=== PATIENT | male | born 1945 | race Caucasian/White ===

== ENCOUNTER 2022-10-14 21:54 | Inpatient (IN) | payer MEDICARE, SELFPAY ==
[2022-10-14 21:57] VITALS: BP 142/107; PULSE 115; RESP 30; TEMP 37.3; O2SAT 93; BMI 43.0
--- NOTE | 2022-10-14 22:11 | CTR_ITS ---
PROCEDURE INFORMATION: Exam: CTA Head With Contrast, Arteriography Exam date and time: 10/14/2022 10:42 PM Age: 77 years old Clinical indication: Stroke-like symptoms; Altered mental status/memory loss; Additional info: Arrival via EMS for acute AMS. Patient acting very confused and fearful. Keeps repeating oh god help me . Persistently keeps holding RT upper ext up in the air. TECHNIQUE: Imaging protocol: Computed tomographic angiography of the head with contrast. Exam focused on the arteries. 3D rendering (Not supervised by radiologist): MIP and/or 3D reconstructed images were created by the technologist. Radiation optimization: All CT scans at this facility use at least one of these dose optimization techniques: automated exposure control; mA and/or kV adjustment per patient size (includes targeted exams where dose is matched to clinical indication); or iterative reconstruction. Contrast material: OMNI 350; Contrast volume: 200 ml; Contrast route: INTRAVENOUS (IV); REPORTING DATA: Count of CT and Cardiac NM exams in prior 12 months: This patient has received [address] and 0 known cardiac nuclear medicine studies in the 12 months prior to the current study. COMPARISON: CT head wo con* [id number] 10/14/2022 10:40 PM RADIATION DOSE METRICS: Total DLP (mGy-cm): 710.08 FINDINGS: ANTERIOR CIRCULATION: Right internal carotid artery: Intracranial segment is patent with no significant stenosis. No aneurysm. Right middle cerebral artery: No occlusion or significant stenosis. No aneurysm. Right anterior cerebral artery: No occlusion or significant stenosis. No aneurysm. Left internal carotid artery: Intracranial segment is patent with no significant stenosis. No aneurysm. Left middle cerebral artery: No occlusion or significant stenosis. No aneurysm. Left anterior cerebral artery: No occlusion or significant stenosis. No aneurysm. POSTERIOR CIRCULATION: Right vertebral artery: No occlusion or significant stenosis. No aneurysm. Left vertebral artery: No occlusion or significant stenosis. No aneurysm. Basilar artery: No occlusion or significant stenosis. No aneurysm. Right posterior cerebral artery: No occlusion or significant stenosis. No aneurysm. Left posterior cerebral artery: No occlusion or significant stenosis. No aneurysm. Brain: Encephalomalacia in the right occipital lobe. Cerebral ventricles: No ventriculomegaly. Bones/joints: Unremarkable. No acute fracture. Soft tissues: Unremarkable. PROCEDURE INFORMATION: Exam: CTA Neck With Contrast Exam date and time: 10/14/2022 10:42 PM Age: 77 years old Clinical indication: Stroke-like symptoms; Altered mental status/memory loss; Additional info: Arrival via EMS for acute AMS. Patient acting very confused and fearful. Keeps repeating oh god help me . Persistently keeps holding RT upper ext up in the air. TECHNIQUE: Imaging protocol: Computed tomographic angiography of the neck with contrast. 3D rendering (Not supervised by radiologist): MIP and/or 3D reconstructed images were created by the technologist. Radiation optimization: All CT scans at this facility use at least one of these dose optimization techniques: automated exposure control; mA and/or kV adjustment per patient size (includes targeted exams where dose is matched to clinical indication); or iterative reconstruction. Contrast material: OMNI 350; Contrast volume: 200 ml; Contrast route: INTRAVENOUS (IV); REPORTING DATA: Count of CT and Cardiac NM exams in prior 12 months: This patient has received [address] and 0 known cardiac nuclear medicine studies in the 12 months prior to the current study. COMPARISON: CT cervical spin wo con* [id number] 07/26/2018 7:27 PM RADIATION DOSE METRICS: Total DLP (mGy-cm): 659.57 FINDINGS: Right common carotid artery: No stenosis. No dissection or occlusion. Right internal carotid artery: Unable to assess due to motion artifact. Right external carotid artery: No occlusion or stenosis of the origin. Left common carotid artery: No stenosis. No dissection or occlusion. Left internal carotid artery: Unable to assess due to motion artifact. Left external carotid artery: No occlusion or stenosis of the origin. Right vertebral artery: No stenosis. No dissection or occlusion. Left vertebral artery: No stenosis. No dissection or occlusion. Soft tissues: Normal. No significant soft tissue swelling. Bones/joints: No acute fracture. Other findings: Motion artifact degrades the images. CT/CT angio headneck* [id number] IMPRESSION: No stenosis or occlusion of intracranial arteries. IMPRESSION: Limited examination due to extensive motion artifact. Evaluation of bilateral proximal internal carotid arteries is limited to assess for stenosis. REFERENCES: NASCET CRITERIA. The degree of stenosis in the cervical segment of the internal carotid artery is based on NASCET criteria. Normal is no stenosis. Mild is less than 50% stenosis. Moderate is 50-69% stenosis. Severe is 70% to 99% stenosis. Total occlusion is no detectable patent lumen.
--- NOTE | 2022-10-14 22:11 | CTR_ITS ---
PROCEDURE INFORMATION: Exam: CT Head Without Contrast Exam date and time: 10/14/2022 10:40 PM Age: 77 years old Clinical indication: Stroke-like symptoms; Altered mental status/memory loss; Additional info: Arrival via EMS for acute AMS. Patient acting very confused and fearful. Keeps repeating oh god help me . Persistently keeps holding RT upper ext up in the air. TECHNIQUE: Imaging protocol: Computed tomography of the head without contrast. Radiation optimization: All CT scans at this facility use at least one of these dose optimization techniques: automated exposure control; mA and/or kV adjustment per patient size (includes targeted exams where dose is matched to clinical indication); or iterative reconstruction. Other technique: STROKE PROTOCOL was implemented. REPORTING DATA: Count of CT and Cardiac NM exams in prior 12 months: This patient has received [address] and 0 known cardiac nuclear medicine studies in the 12 months prior to the current study. COMPARISON: CT head wo con* [id number] 07/26/2018 7:24 PM RADIATION DOSE METRICS: Total DLP (mGy-cm): 710.08 FINDINGS: Brain: Large amount of diffuse white matter disease likely reflecting chronic microvascular ischemic changes. Cerebral ventricles: No ventriculomegaly. Paranasal sinuses: Paranasal sinus opacifications. Mastoid air cells: Visualized mastoid air cells are well aerated. Bones/joints: Unremarkable. No acute fracture. Soft tissues: Unremarkable. Vasculature: Chronic right posterior cerebral artery distribution encephalomalacia/infarct. CT/CT head wo con* [id number] IMPRESSION: 1. Negative for intracranial hemorrhage or mass effect. 2. Chronic right posterior cerebral artery distribution encephalomalacia/infarct. 3. Large amount of diffuse white matter disease likely reflecting chronic microvascular ischemic changes. 4. Paranasal sinus opacifications. ASSESSMENT: ASPECTS ([place] Stroke Program Early CT Score) is 10.
--- NOTE | 2022-10-14 22:11 | XRR_ITS ---
PROCEDURE INFORMATION: Exam: XR Chest Exam date and time: 10/14/2022 10:22 PM Age: 77 years old Clinical indication: Shortness of breath; Additional info: SOB TECHNIQUE: Imaging protocol: Radiologic exam of the chest. Views: 1 view. COMPARISON: CR XR chest 1V [id number] 06/17/2018 12:57 AM FINDINGS: Lungs: Unremarkable. No consolidation. Pleural spaces: Unremarkable. No pleural effusion. No pneumothorax. Heart/Mediastinum: Unremarkable. No cardiomegaly. Bones/joints: Unremarkable. XR/XR chest 1V portable [id number] IMPRESSION: No acute findings.
[2022-10-14] MEDS: ondansetron 2 mg/ML SDV 2 mL 4 MG IVP (22:15)
--- NOTE | 2022-10-14 22:21 | ECG_ITS ---
[facility] Test Date: 2022-10-14 Pat Name: Richard Warren Department: Room: Gender: Male R Developer: : 1945 Requested By: William Sweeney Order Number: [id number] Anjali MD: Gregor Car M.D. Measurements Intervals [place] Rate: 114 P: 0 MI: 0 QRS: -3 QRSD: 150 T: -9 QT: 313 QTc: 432 Interpretive Statements ATRIAL FIBRILLATION WITH RAPID VENTRICULAR RESPONSE INDETERMINATE AXIS RIGHT BUNDLE BRANCH BLOCK [120+ ms QRS DURATION, UPRIGHT V1, 40+ ms S IN I/aVL/V4/V5/V6] Compared to ECG 06/18/2018 15:42:27 Indeterminate axis now present Electronically Signed On 10-14-2022 22:55:36 CDT by Gregor Car M.D. [id number]
--- NOTE | 2022-10-14 22:32 | ED_ITS ---
HPI - Altered Mental Status General: Chief Complaint: Altered Mental Status Stated Complaint: AMS Time Seen by Provider: 10/14/22 21:55 Source: EMS Mode of arrival: EMS Limitations: altered mental status History of Present Illness: 77-year-old male had a history of A-fib along with a stroke he is on Eliquis at home her and EMS he has been increasingly agitated and confused since this morning his states it got much worse this afternoon he currently will not answer any questions he is nonverbal here he would not follow really any commands either she states that is not as normal. He had complained of some chest pain earlier today he is in A-fib with RVR no known fever. Review of Systems General: Reports: ROS unobtainable due to mental status PFSH ED PFSH: Medical History (Updated 10/15/22 @ 01:17 by William Sweeney MD) Atrial fibrillation CVA (cerebral vascular accident) Social History (Updated 10/14/22 @ 22:33 by William Sweeney MD) Substance/Drug Use: never Course Vital Signs: Vital signs: Vital Signs Temperature 99.2 F 10/14/22 21:57 Pulse Rate 88 10/15/22 00:23 Respiratory Rate 18 10/15/22 00:23 Blood Pressure 126/77 10/15/22 00:23 Pulse Oximetry 94 10/15/22 00:23 Oxygen Delivery Me thod 10/15/22 00:23 Oxygen Flow Rate 2 10/14/22 23:20 MDM - Altered Mental Status Medical Decision Making Patient presents here originally with altered mental status he is now awake alert answering all my questions probably did have a low-grade fever with leukocytosis and elevated lactate his blood pressure here has been normal given him Rocephin for his acute cystitis spoke to urologist as well with his CT findings will admit at this time. Lab Data 10/14/22 22:25 10/14/22 22:25 Radiology Impressions Chest X-Ray 10/14/22 22:11 IMPRESSION: No acute findings. Head CT 10/14/22 22:11 IMPRESSION: 1. Negative for intracranial hemorrhage or mass effect. 2. Chronic right posterior cerebral artery distribution encephalomalacia/infarct. 3. Large amount of diffuse white matter disease likely reflecting chronic microvascular ischemic changes. 4. Paranasal sinus opacifications. ASSESSMENT: ASPECTS ([place] Stroke Program Early CT Score) is 10. Head/Neck CTA 10/14/22 22:11 IMPRESSION: No stenosis or occlusion of intracranial arteries. IMPRESSION: Limited examination due to extensive motion artifact. Evaluation of bilateral proximal internal carotid arteries is limited to assess for stenosis. REFERENCES: NASCET CRITERIA. The degree of stenosis in the cervical segment of the internal carotid artery is based on NASCET criteria. Normal is no stenosis. Mild is less than 50% stenosis. Moderate is 50-69% stenosis. Severe is 70% to 99% stenosis. Total occlusion is no detectable patent lumen. Abdomen/Pelvis CT 10/15/22 00:18 IMPRESSION: 1. Moderate to severe left hydronephrosis and hydroureter. Apparent filling defect in the left distal ureter, consider correlation with ureteroscopy as an underlying mass is of concern, admixture of contrast may also be a consideration. 2. Khoury catheter in the urinary bladder with urinary bladder wall thickening likely due to nondistention, please correlate for cystitis. 3. Likely chronic lumbar spine compression fractures without retropulsion of bony fragments. 4. Constipation. 5. Diverticulosis without diverticulitis. 6. Coronary artery atherosclerotic calcifications. 7. Bibasilar atelectasis. 8. Hepatic steatosis. Laboratory Results WBC 19.2 10^3/uL (4.0-10.0) H 10/14/22 22:25 RBC 4.61 10^6/uL (4.1-5.3) 10/14/22 22:25 Hgb 14.0 g/dL (11.7-16.6) 10/14/22 22:25 Hct 42.3 % (42.0-52.0) 10/14/22 22:25 MCV 91.8 fl (80-94) 10/14/22 22:25 MCH 30.4 pg (28.0-34.0) 10/14/22 22:25 MCHC 33.1 g/dL (30.0-36.0) 10/14/22 22:25 RDW 12.8 % (12.1-15.1) 10/14/22 22:25 Plt Count 234 10^3/cmm (130-400) 10/14/22 22:25 MPV 9.4 fL (7.4-10.4) 10/14/22 22: Neut % (Auto) 82.1 % 10/14/22 22: Lymph % (Auto) 8.4 % 10/14/22 22:25 [place] % (Auto) 8.3 % 10/14/22 22:25 Eos % (Auto) 0.3 % 10/14/22 22: Baso % (Auto) 0.4 % 10/14/22 22: Neut # (Auto) 15.79 10^3/uL (1.8-7.7) H 10/14/22 22: Lymph # (Auto) 1.6 10^3/uL (0.8-4.8) 10/14/22 22: [place] # (Auto) 1.6 10^3/uL (0.2-0.9) H 10/14/22 22: Eos # (Auto) 0.1 10^3/uL (0.0-0.8) 10/14/22 22: Baso # (Auto) 0.1 10^3/uL (0.0-0.1) 10/14/22 22: Nucleated RBC % (auto) 0 % 10/14/22: Nucleated RBCs # 0.0 /100WBC 10/14/22 22: PT 14.90 SECONDS (12.1-14.9) 10/14/22 22: INR 1.14 (0.8-1.2) 10/14/22 22:25 Specimen Type Arterial 10/14/22 21:11 Sample Site Brachial, right 10/14/22 21:11 ABG pH 7.40 (7.35-7.45) 10/14/22 21:11 ABG pCO2 38.0 mmHg (35-45) 10/14/22 21:11 ABG pO2 72.0 mmHg (80.0-100.0) L 10/14/22 21:11 ABG HCO3 23.7 mmol/L (22-26) 10/14/22 21:11 ABG Base Excess -0.9 mmol/L (-2.0-2.0) 10/14/22 21:11 Liam Test N/a 10/14/22 21:11 Hematocrit 41.1 % (42-52) L 10/14/22 21:11 Hgb O2 Saturation 93.3 % (95-100) L 10/14/22 21:11 Carboxyhemoglobin 1.7 %THgb (0.4-20.1) 10/14/22 21:11 Methemoglobin 0.2 % (0.4-1.5) L 10/14/22 21:11 Total Hemoglobin 13.4 g/dL (14-18) L 10/14/22 21:11 O2 Delivery Device Nc 10/14/22 21:11 O2 Liters/Min 2.0 % 10/14/22 21:11 FiO2 28.0 % 10/14/22 21:11 Health Care Marketing Specialist ID Alewe 10/14/22 21:11 Sodium 134 mmol/L (136-145) L 10/14/22 22:25 Potassium 4.3 mmol/L (3.5-5.1) 10/14/22 22:25 Chloride 96 mmol/L (98-107) L 10/14/22 22:25 Carbon Dioxide 24 mmol/L (22-29) 10/14/22 22:25 Anion Gap 18.3 (5-19) 10/14/22 22:25 BUN 11 mg/dL (8-23) 10/14/22 22:25 Creatinine 0.9 mg/dL (0.7-1.2) 10/14/22 22:25 GFR Calculation Not Reportable 10/14/22 22:25 Glucose 139 mg/dL (65-115) H 10/14/22 22:25 Calculated Osmolality 280 mOsm/kg (285-295) L 10/14/22 22:25 Lactate 4.8 mmol/L (0.5-2.2) H* 10/14/22 22:25 Calcium 9.5 mg/dL (8.5-10.5) 10/14/22 22:25 Total Bilirubin 0.7 mg/dL (0.15-1.2) 10/14/22 22:25 AST 13 U/L (0-40) 10/14/22 22:25 ALT 8 U/L (0-41) 10/14/22 22:25 Alkaline Phosphatase 50 U/L (40-130) 10/14/22 22:25 Troponin T Baseline 30 ng/L (0-15) H 10/14/22 22:25 NT-Pro-B Natriuret Pep 664 pg/mL (0-450) H 10/14/22 22:25 Total Protein 7.4 g/dL (6.6-8.7) 10/14/22 22:25 Albumin 3.8 g/dL (3.5-5.2) 10/14/22 22:25 Globulin 3.6 g/dL (1.3-4.6) 10/14/22 22:25 Lipase 17 U/L (13-60) 10/14/22 22:25 Urine Color Yellow (Yellow) 10/14/22 23:37 Urine Appearance Cloudy (CLEAR) A 10/14/22 23:37 Urine pH 6 (5-7) 10/14/22 23:37 Ur Specific [place] 1.010 (1.005-1.030) 10/14/22 23:37 Urine Protein 1+ (Negative) H 10/14/22 23:37 Urine Glucose (UA) Norm (Normal) 10/14/22 23:37 Urine Ketones 1+ (Negative) H 10/14/22 23:37 Urine Blood 2+ (Negative) H 10/14/22 23:37 Urine Nitrate Positive (Negative) H 10/14/22 23:37 Urine Bilirubin Neg (Negative) 10/14/22 23:37 Urine Urobilinogen 1 mg/dL (Negative) H 10/14/22 23:37 Ur Leukocyte Esterase 2+ (Negative) H 10/14/22 23:37 Urine RBC 0-4 /hpf (0-2) H 10/14/22 23:37 Urine WBC Too numerous to cnt /hpf (0-5) H 10/14/22 23:37 Ur Squamous Epith Cells 0-4 /hpf (0-5) H 10/14/22 23:37 Amorphous Sediment Not Reportable 10/14/22 23:37 Urine Bacteria 2+ /hpf (NONE) H 10/14/22 23:37 Influenza Type A Ag negative (Negative) 10/14/22 23:17 Influenza Type B Ag negative (Negative) 10/14/22 23:17 SARS-CoV-2 Ag (Rapid) negative (Negative) 10/14/22 23:17 EKG Data EKG 1: I personally reviewed and interpreted this EKG as follows: EKG interpretation date: 10/14/22 EKG interpretation time: 22:21 Interpretation: afib with rvr hr [address] or t wave abnormalities qrs 150 qtc 381 Critical Care Time Critical Care Time: Critical Care Time: Yes Total Critical Care Time: 45 Attestation: The high probability of a clinically significant, sudden or life threatening deterioration of the patient's gu system(s) required my full and direct attention, intervention and personal management. The critical care time is as shown. This time is in addition to time spent performing any reported procedures but includes the following: [x] Data and vital sign review and interpretation [x] Patient assessment, examination and intervention [x] Documentation [x] Medication orders and management Discharge Plan Discharge Patient Disposition: Admitted As Inpatient Clinical Impression: Altered mental status, Acute cystitis, Hydronephrosis Coding Level of Care Code ED Records Technician for Sammi Landeros
[2022-10-14 22:38] LABS: Basophils # 0.1 10^3/uL (0.0-0.1); Basophils % 0.4 %; Eosinophils # 0.1 10^3/uL (0.0-0.8); Eosinophils % 0.3 %; Hematocrit 42.3 % (42.0-52.0); Lymphocytes # 1.6 10^3/uL (0.8-4.8); Lymphocytes % 8.4 %; Mean Corpuscular HGB Conc 33.1 g/dL (30.0-36.0); Mean Corpuscular Hemoglobin 30.4 pg (28.0-34.0); Mean Corpuscular Volume 91.8 fl (80-94); Mean Platelet Volume 9.4 fL (7.4-10.4); Monocytes # 1.6 10^3/uL (0.2-0.9); Monocytes % 8.3 %; Neutrophils # 15.79 10^3/uL (1.8-7.7); Neutrophils % 82.1 %; Nucleated Red Blood Cells % 0 %; Platelet Count 234 10^3/cmm (130-400); Red Blood Count 4.61 10^6/uL (4.1-5.3); Red Cell Distribution Width 12.8 % (12.1-15.1); White Blood Count 19.2 10^3/uL (4.0-10.0)
[2022-10-14 22:50] LABS: INR 1.14 (0.8-1.2)
[2022-10-14] MEDS: iohexol 350 mg/mL 500 mL Btl (per mL) IV (22:52)
[2022-10-14 22:53] LABS: Troponin(5th) Baseline 30 ng/L (0-15)
[2022-10-14 22:59] LABS: Alanine Aminotransferase 8 U/L (0-41); Albumin Level 3.8 g/dL (3.5-5.2); Alkaline Phosphatase 50 U/L (40-130); Anion Gap 18.3 (5-19); Aspartate Amino Transferase 13 U/L (0-40); Blood Urea Nitrogen 11 mg/dL (8-23); Calcium 9.5 mg/dL (8.5-10.5); Carbon Dioxide 24 mmol/L (22-29); Chloride 96 mmol/L (98-107); Globulin 3.6 g/dL (1.3-4.6); Glucose 139 mg/dL (65-115); Lipase 17 U/L (13-60); NT Pro B Type Natriuretic Pept 664 pg/mL (0-450); Osmolality Calculated 280 mOsm/kg (285-295); Potassium 4.3 mmol/L (3.5-5.1); Sodium 134 mmol/L (136-145); Total Bilirubin 0.7 mg/dL (0.15-1.2); Total Protein 7.4 g/dL (6.6-8.7)
[2022-10-14 23:20] VITALS: BP 125/72; PULSE 112; RESP 18; O2SAT 93
[2022-10-14] MEDS: acetaminophen 1,000 MG/100 ML PIGGYBACK 400 MG IV (23:20)
[2022-10-14 23:22] LABS: Arterial Blood Gas Hematocrit 41.1 % (42-52); Base Excess ABG -0.9 mmol/L (-2.0-2.0); Blood Gas Sample Site Brachial, right; Blood Gas Sample Type Arterial; Carboxyhemoglobin 1.7 %THgb (0.4-20.1); HCO3 ABG 23.7 mmol/L (22-26); HGB O2 Sat 93.3 % (95-100); Methemoglobin 0.2 % (0.4-1.5); Oxygen Device NC; Total Hemoglobin 13.4 g/dL (14-18)
[2022-10-15] VITALS (16 sets, daily range): BP systolic 85–143; BP diastolic 49–88; PULSE 73–104; RESP 14–19; TEMP 36.2–37; O2SAT 91–99
--- NOTE | 2022-10-15 00:11 | ECG_ITS ---
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 Measurements Intervals [place] Rate: 106 P: 0 NM: 0 QRS: 37 QRSD: 154 T: -12 QT: 375 QTc: 498 Interpretive Statements ATRIAL FIBRILLATION WITH RAPID VENTRICULAR RESPONSE RIGHT BUNDLE BRANCH BLOCK [120+ ms QRS DURATION, UPRIGHT V1, 40+ ms S IN I/aVL/V4/V5/V6] Compared to ECG 10/14/2022 22:21:57 Indeterminate axis no longer present Electronically Signed On 10-15-2022 23:12:57 CDT by Gregor Car M.D. [id number]
[2022-10-15 00:12] LABS: SARS Covid-2 Antigen negative (Negative)
[2022-10-15 00:13] LABS: Influenza A by IFA negative (Negative); Influenza B by IFA negative (Negative)
[2022-10-15 00:15] LABS: Add Urine Microscopic? YES; Bilirubin Urine Neg (Negative); Glucose Urine UA Norm (Normal); Leukocyte Esterase Urine 2+ (Negative); Nitrate Urine Positive (Negative); Protein Urine 1+ (Negative); Urine Appearance Cloudy (CLEAR); Urine Color Yellow (Yellow); pH Urine 6 (5-7)
[2022-10-15 00:16] LABS: Blood Urine 2+ (Negative); Ketones Urine 1+ (Negative); Urobilinogen Urine 1 mg/dL (Negative)
[2022-10-15 00:17] LABS: Add Urine Culture? Yes; Bacteria Urine 2+ /hpf; RBC Urine 0-4 /hpf (0-2); Squamous Epithelial Cell Urine 0-4 /hpf (0-5); WBC Urine TOO NUMEROUS TO CNT /hpf (0-5)
--- NOTE | 2022-10-15 00:18 | CTR_ITS ---
PROCEDURE INFORMATION: Exam: CT Abdomen And Pelvis Without Contrast Exam date and time: 10/15/2022 12:48 AM Age: 77 years old Clinical indication: Pain and abnormal findings; Abnormal lab test; Elevated wbc; Abdominal pain; Localized; Lower; Additional info: C/O lower abd pain. Wbc of 20k. Lactate of 4.8. Bacteriuria. TECHNIQUE: Imaging protocol: Computed tomography of the abdomen and pelvis without contrast. Radiation optimization: All CT scans at this facility use at least one of these dose optimization techniques: automated exposure control; mA and/or kV adjustment per patient size (includes targeted exams where dose is matched to clinical indication); or iterative reconstruction. REPORTING DATA: Count of CT and Cardiac NM exams in prior 12 months: This patient has received 2 known [address]s and 0 known cardiac nuclear medicine studies in the 12 months prior to the current study. COMPARISON: US scrotum [id number] 03/26/2016 6:05 PM RADIATION DOSE METRICS: Total DLP (mGy-cm): 832.07 FINDINGS: Lungs: Bibasilar atelectasis. Coronary arteries: Coronary artery atherosclerotic calcifications. Liver: Hepatic steatosis. Gallbladder and bile ducts: Normal. No calcified stones. No ductal dilation. Pancreas: Normal. No ductal dilation. Spleen: Normal. No splenomegaly. Adrenal glands: Normal. No mass. Kidneys and ureters: Moderate to severe left hydronephrosis and hydroureter. Apparent filling defect in the left distal ureter, consider correlation with ureteroscopy as an underlying mass is of concern, admixture of contrast may also be a consideration. Stomach and bowel: Constipation. Diverticulosis without diverticulitis. Appendix: No evidence of appendicitis. Intraperitoneal space: Unremarkable. No free air. No significant fluid collection. Vasculature: Unremarkable. No abdominal aortic aneurysm. Lymph nodes: Unremarkable. No enlarged lymph nodes. Urinary bladder: Khoury catheter in the urinary bladder with urinary bladder wall thickening likely due to nondistention, please correlate for cystitis. Reproductive: Unremarkable as visualized. Bones/joints: Likely chronic lumbar spine compression fractures without of retropulsion bony fragments. Soft tissues: Unremarkable. CT/CT abdomen pelvis wo con [id number] IMPRESSION: 1. Moderate to severe left hydronephrosis and hydroureter. Apparent filling defect in the left distal ureter, consider correlation with ureteroscopy as an underlying mass is of concern, admixture of contrast may also be a consideration. 2. Khoury catheter in the urinary bladder with urinary bladder wall thickening likely due to nondistention, please correlate for cystitis. 3. Likely chronic lumbar spine compression fractures without retropulsion of bony fragments. 4. Constipation. 5. Diverticulosis without diverticulitis. 6. Coronary artery atherosclerotic calcifications. 7. Bibasilar atelectasis. 8. Hepatic steatosis.
[2022-10-15] MEDS: cefTRIAXone 1,000 MG in sodium chloride 0.9% (plus) 50 ML 100 MG IV (00:30)
[2022-10-15] MEDS: ondansetron 2 mg/ML SDV 2 mL 4 MG IVP (00:31)
[2022-10-15 00:32] LABS: Lactate (Lactic Acid level) 4.8 mmol/L (0.5-2.2)
[2022-10-15] MEDS: morphine 4 mg/mL SDV 1 mL IVP (00:32)
[2022-10-15] MEDS: sodium chloride 0.9% 1,000 ML 999 ML IV ×2 (00:37→02:04)
[2022-10-15 02:09] LABS: Troponin 5 2HR 30.46 ng/L (0-15)
[2022-10-15 02:34] LABS: Troponin 5 2HR Delta 0.46 ABS# (0-10)
--- NOTE | 2022-10-15 03:39 | P.HP_ITS ---
Providers/Chief Complaint Admitting Physician: Jake Perales Primary Care Provider: Kris King Chief Complaint: AMS History of Present Illness Pleasant 62-year-old gentleman with history of atrial fibrillation, on anticoagulation with Eliquis, family also reports that he likely had a stroke about a year ago after which his health overall had started to decline, morbid obesity, DM 2, HTN, THIAGO on nightly CPAP, he is pretty much nonambulatory, requires assistance with ADLs, previously with decubital ulcers but does reportedly had been healed up, evaluated in ED due to altered mental status with reported increasing agitation and confusion. Initial work-up for possible CVA, with resuscitation in the ER mental status did appear to have improved. CT head with noted chronic right posterior cerebral artery distribution encephalomalacia/infarct, which the family states suspect was his original stroke. Additionally noted large amount of diffuse white matter disease likely reflecting chronic microvascular ischemic changes. Paranasal sinus opacifications. No intracranial hemorrhage or mass effect. Head and neck CTA also discussed with family, no stenosis or occlusion of the intracranial arteries, limited examination of neck with extensive motion artifact. Ablation of proximal internal carotid arteries limited to assess for stenosis. Otherwise on presentation he was noted with sinus tachycardia 115, temp 99.2 F, 1 CBC noted leukocytosis 19.2, predominantly neutrophilic. Lactic acid initial 4.8. ABG seven-point 4/38/72/23.7. Sodium 134, chloride 96, anion gap 18.3, bicarb 24. BUN 11, creatinine 0.9. Glucose 139. Unremarkable liver parameters. Lipase 17. Baseline troponin 30, QR troponin 30.46. NT proBNP 664. UA with cloudy urine, 1+ protein, 1+ ketones, 2+ blood, positive nitrate 1 urobilinogen, 2+ LE, 0-4 RBC, too numerous to count WBC, 0-4 SEC, 2+ bacteria. Negative rapid influenza and COVID antigens. CT abdomen pelvis with moderate to severe left hydronephrosis and hydroureter. Apparent filling defect in the left distal ureter, consider correlation with ureteroscopy as an underlying mass is of concern, admixture of contrast may also be a consideration. Khoury catheter in the urinary bladder with urinary bladder wall thickening lik allison due to nondistention, please correlate for cystitis. Likely chronic lumbar spine compression fractures without retropulsion of bony fragments. Constipation. Diverticulosis. Coronary artery calcifications. Bibasilar atelectasis. Hepatic steatosis. Chest x-ray without acute findings. As mentioned with receiving fluid resuscitation with 2 L normal saline, received a dose of Rocephin, as well as morphine, Zofran and Tylenol. Review of Systems Const: Denies: fever(s) Eyes: Reports: eye discharge; Denies: eye discomfort or eye redness ENMT: Reports: other (Left eye crusting, denies pain. No erythema.); Denies: throat pain Card: Reports: chest pain; Denies: edema, pre-syncope or dyspnea on exertion Resp: Denies: dyspnea, productive cough, change in phlegm color or hemoptysis GI: Denies: vomiting or diarrhea : Denies: flank pain or difficulty urinating Skin/Breast: Reports: rash; Denies: new lesions Neuro: Reports: confusion; Denies: headache(s) or dizziness Eric/Lymph: Denies: easy bleeding Medications/Allergies Home Medications Medication Instructions Recorded Confirmed Last Taken Type amlodipine 5 mg tablet 2.5 mg PO BEDTIME 10/15/22 10/15/22 10/13/22 21:00 History apixaban 5 mg tablet (Eliquis) 5 mg PO BID 10/15/22 10/15/22 10/14/22 20:00 History atenolol 50 mg tablet 75 mg PO DAILY 10/15/22 10/15/22 10/14/22 08:00 History baclofen 10 mg tablet 10 mg PO BID PRN muscle spasms 10/15/22 10/15/22 10/14/22 13:00 History enalapril maleate 20 mg tablet 20 mg PO BID 10/15/22 10/15/22 10/14/22 20:00 History glipizide 5 mg tablet 5 mg PO BID 10/15/22 10/15/22 10/14/22 20:00 History hydrocodone 5 mg-acetaminophen 325 1 - 2 tab PO DIRECTED PRN Pain 10/15/22 10/15/22 10/14/22 18:40 History mg tablet insulin glargine 100 unit/mL (3 35 unit SUBCUT BEDTIME 10/15/22 10/15/22 10/14/22 20:00 History mL) subcutaneous pen (Lantus Solostar U-100 Insulin) isosorbide mononitrate 20 mg tablet 20 mg PO DAILY 10/15/22 10/15/22 10/14/22 08:00 History metformin 1,000 mg tablet 1,000 mg PO BID 10/15/22 10/15/22 10/14/22 18:00 History pantoprazole 40 mg tablet,delayed 40 mg PO DAILY 10/15/22 10/15/22 10/14/22 08:00 History release (Protonix) rosuvastatin 5 mg tablet 5 mg PO BEDTIME 10/15/22 10/15/22 10/14/22 20:00 History tamsulosin 0.4 mg capsule (Flomax) 0.4 mg PO DAILY 10/15/22 10/15/22 10/14/22 08:00 History Allergies Allergy/AdvReac Type Severity Reaction Status Date / Time iodine Allergy ALGY-Rash Verified 10/14/22 22:12 PFSH Acute PFSH: Medical History Atrial fibrillation Bedbound CVA (cerebral vascular accident) Decubital ulcer DM type 2 (diabetes mellitus, type 2) Epididymitis HTN (hypertension) Intertrigo Obesity THIAGO (obstructive sleep apnea) Surgical History Hx of cataract surgery Hx of tonsillectomy Family History Other Cancer Social History Smoking and tobacco status: never smoked Alcohol intake: never Substance/Drug Use: never Marital status: Vitals/I&O/Wt Last Vital Signs Temp 98.1 F 10/15/22 02:40 Pulse 104 H 10/15/22 02:40 Resp 14 10/15/22 02:40 BP 116/77 10/15/22 02:40 Pulse Ox 98 10/15/22 03:32 O2 Del Method 10/15/22 03:32 O2 Flow Rate 2 10/15/22 03:32 10/14/22 10/14/22 10/15/22 14:59 22:59 06:59 Intake Total 2150 / 2150 Balance 2150 / 2150 Weight last 48 hrs Weight 136.078 kg Physical Exam Narrative: Accompanied by family including his Const: COMMON NORMALS: alert GENERAL APPEARANCE: cooperative NUTRITIONAL APPEARANCE: obese morbidly obese ORIENTATION/CONSCIOUSNESS: Yes awake, Yes oriented to person, Yes oriented to place and Yes oriented to time (Year is 20- something) HENMT: COMMON NORMALS: oropharynx normal Eye: OTHER: Left eye discharge/crusting. No erythema. Denies pain. Neck/C-Spine: COMMON NORMALS: no JVD Resp: COMMON NORMALS: normal respiratory effort and clear to auscultation b ilaterally AUSCULTATION: clear to auscultation bilaterally Cardio: COMMON NORMALS: no JVD, regular rhythm, S1 normal heart sound present, S2 normal heart sound present and No murmurs present (Cardio) RHYTHM: regular rhythm HEART SOUNDS: S1 normal heart sound present and S2 normal heart sound present GI: COMMON NORMALS: Soft to palpation and non-tender PALPATION: Yes Soft to palpation OTHER: Large pannus. Healing intertrigo under pannus. : OTHER: Worse intertrigo/cracking in the groins, particularly the right. Extremity: COMMON NORMALS: no joint enlargement GENERAL: Yes edema (Trace) Neuro: COMMON NORMALS: patient oriented x3 and moves all extremities SENSORIUM/ORIENTATION: Yes alert Urinary Catheter Management: Khoury: Cath Placed During This Visit: yes Urinary Catheter Date of Insertion: 10/14/22 Urinary Catheter Time of Insertion: 23:30 Sepsis: Is patient septic: Yes Data 10/14/22 22:25 10/14/22 22:25 A&P Assessment and plan (1) Acute encephalopathy: Altered mental status at home, with confusion, agitation. Acute encephalopathy secondary to sepsis, complicated UTI. Improved so far in ER with initial treatment, although is generally weak. History obtained from family, ER physician. Also noted subacute or chronic CVA on CT imaging. On presentation additionally A-fib with RVR, complained of chest pain as well. Treat underlying conditions as below. Reorient. (2) Sepsis: Suspected sepsis with leukocytosis 19.2, tachycardia initially 115, currently 104. Initially tachypnea of 30. End organ effects with acute encephalopathy, additionally hypoperfusion with lactic acidosis 4.8. Mild troponin elevation with demand ischemia. Additionally noted his medications are entered as he is also he is on metformin, additional possibly of similar severe potentially life-threatening illness with lactic acidosis with metformin induced lactic acidosis. Hold metformin. Potentially consider discontinuation at discharge. He is already on insulin as well. Hold antihypertensives for now. Treat complicated UTI. Received ceftriaxone. Switch antibiotic to ciprofloxacin. Blood culture requested. Lactic acid requested. (3) Complicated UTI (urinary tract infection): For now did not resume Eliquis. Urology has been consulted, noted on CT moderate to severe left hydronephrosis and hydroureter. Apparent filling defect in the left distal ureter. Not obvious etiology, possibilities include underlying mass, possibly admixture of contrast. N.p.o. for now. Resume anticoagulation once safe in collaboration with urology. Discussed with family given sepsis with complicated UTI, hydroureter, empirically will give ciprofloxacin. Follow-up chemistry for kidney function requested. (4) Hydronephrosis: As above. (5) Paroxysmal atrial fibrillation with RVR: On presentation paroxysmal atrial fibrillation with RVR up to 115. He takes atenolol at home, hold medication for now with sepsis, hypoperfusion, risk of hypotension, will give low-dose metoprolol 12.5 mg twice daily to start. Eliquis not yet resumed pending possible urologic intervention. 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 Noted subacute and/or chronic posterior right cerebral artery distribution encephalomalacia/artifact. CT results noted, intracranial unremarkable, very limited examination of the neck. Will assess with duplex. Continue statin. Known diabetes, check A1c. Known A-fib normally on anticoagulation. THIAGO. Morbid obesity. Never smoker. Pretty much bedbound at baseline. We will get ST, OT evaluation. (7) Chest pain: Fluids. Complete troponin EKG series. Continue aspirin, statin, beta-jason. Hold Imdur for now given sepsis, risk of hypotension. (8) Intertrigo: Nystatin cream, Interdry strips twice daily. (9) Conjunctivitis of left eye: Cipro (10) Bedbound: (11) Hepatic steatosis: Incidentally noted on CT. Consider low-fat/low-cholesterol diet when resumed. Would benefit from weight loss. Continue to optimize control of diabetes. Does not drink any alcohol. (12) Constipation: MiraLAX, lactulose as needed (13) Lumbar compression fracture: Chronic. Lidocaine patch if needed. Tylenol as needed. [place] as needed. Plan History of decubital ulcer which reepithelialized. DM2: Continue insulin, reduce dose to 20 units, currently NPO. Sliding scale insulin. Accu-Cheks requested. History of HTN THIAGO: On nightly CPAP, requested Discussed with ER physician. ER documentation reviewed. Discussed with his family at bedside. Attestations Medical Necessity Statement*: Admission of over 2 midnights anticipated for assessment and management of complicated UTI, sepsis, acute encephalopathy, assessment of chest pain, subacute versus chronic CVA, additional medical problems as above. 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
--- NOTE | 2022-10-15 03:50 | ECG_ITS ---
[facility] Test Date: 2022-10-15 Pat Name: Richard Warren Department: Room: 260 Gender: Male Bat Boy/Girl: : 1945 Requested By: William Sweenye Order Number: [id number] Anjali MD: Gregor Car M.D. Measurements Intervals [place] Rate: 85 P: 0 ID: 0 QRS: 41 QRSD: 153 T: 10 QT: 404 QTc: 483 Interpretive Statements ATRIAL FIBRILLATION RIGHT BUNDLE BRANCH BLOCK [120+ ms QRS DURATION, UPRIGHT V1, 40+ ms S IN I/aVL/V4/V5/V6] Compared to ECG 10/15/2022 00:26:34 No significant changes Electronically Signed On 10-15-2022 23:13:16 CDT by Gregor Car M.D. [id number]
[2022-10-15] MEDS: ciprofloxacin 400 MG/200 ML PREMIX 200 MG IV ×2 (05:17→17:21)
[2022-10-15] MEDS: HYDROcodone-acetaminophen 5-325 mg Tablet 1 TAB PO ×2 (05:34→16:23)
[2022-10-15 05:36] LABS: Basophils % 0.2 %; Hematocrit 37.5 % (42.0-52.0); Lymphocytes # 1.8 10^3/uL (0.8-4.8); Lymphocytes % 9.4 %; Mean Corpuscular Hemoglobin 29.4 pg (28.0-34.0); Mean Corpuscular Volume 91.9 fl (80-94); Mean Platelet Volume 9.7 fL (7.4-10.4); Monocytes # 1.8 10^3/uL (0.2-0.9); Monocytes % 9.4 %; Neutrophils # 15.28 10^3/uL (1.8-7.7); Neutrophils % 80.5 %; Nucleated Red Blood Cells % 0 %; Platelet Count 204 10^3/cmm (130-400); Red Blood Count 4.08 10^6/uL (4.1-5.3); Red Cell Distribution Width 12.6 % (12.1-15.1)
[2022-10-15 05:45] LABS: Troponin 5 6HR 28.53 ng/L (0-15)
[2022-10-15 05:50] LABS: Troponin 5 6HR Delta -1.47 ng/L (0-12)
[2022-10-15 05:54] LABS: Lactate (Lactic Acid level) 2.5 mmol/L (0.5-2.2)
[2022-10-15 05:59] LABS: Blood Urea Nitrogen 11 mg/dL (8-23); Calcium 8.9 mg/dL (8.5-10.5); Carbon Dioxide 25 mmol/L (22-29); Chloride 101 mmol/L (98-107); Glucose 152 mg/dL (65-115); Magnesium 1.8 mg/dL (1.7-2.3); Osmolality Calculated 284 mOsm/kg (285-295); Sodium 136 mmol/L (136-145); Thyroid Stimulating Hormone 0.86 uIU/mL (0.27-4.20)
[2022-10-15 06:03] LABS: Anion Gap 14.7 (5-19); Potassium 4.7 mmol/L (3.5-5.1)
[2022-10-15 08:23] LABS: Glucose Point of Care 160 mg/dL (70-110)
--- NOTE | 2022-10-15 08:28 | PM.CONSULT ---
Providers/Reason For Consult Consulting Physician/Specialty*: Urology/Sanchez Reason for Consult*: Left distal ureteral abnormality possibly mass with some obstructive changes. Requesting Physician: Dr. Perales Attending Physician: Marla Reid MD Primary Care Provider: Kris King History of Present Illness History of Present Illness Mr. Warren is a 77-year-old white man first evaluated by me today at the request of the hospitalist service for evidence of left ureteral obstruction possibly related to a left distal ureteral soft tissue mass. He was found to have UTI complicating this apparent obstructive phenomenon. Work-up has included: UA: Too numerous to count white cells, nitrite positive, 2+ bacteria CBC: White count 19.0, hemoglobin 12 Lactate on admission 4.8, 2.5 this morning. Normal LFTs Creatinine 0.8 CT scan: There is no noncontrasted portion of the CT scan and that he had already had head and neck CT scan performed on the same evening prior to that point. Contrast is already filled both collecting systems all the way down to the distal ureters. Quality of the images is not ideal. There is evidence of dilation of the pyelocalyceal system and the left ureter down to the left UVJ. The contrast has failed all the way down to that point he had approximately 2 hours post contrast injection suggesting absence of severe high-grade obstruction. There is evidence of a large filling defect in the left distal ureter several centimeters above the bladder. The bladder itself looks okay. Khoury catheter is in place though. I was requested to evaluate for obstruction, ureteral mass potentially, and presence of UTI. Patient is in poor health. He is on chronic Eliquis for atrial fibrillation, status post CVA, and additional comorbidities include morbid obesity, diabetes, hypertension, obstructive sleep apnea, decubitus ulcers and progressive decline in overall performance. Family states that he has had increasing back pain recently. They were not really sure which side and the patient could remember but he definitely was more tender on the left side. No gross hematuria. Has had a longstanding problem with recurrent UTIs but as far as they can remember they do not recollect any septic episodes Review of Systems Const: Reports: malaise; Denies: fever(s) or chills Eyes: Denies: change in vision ENMT: Denies: odynophagia Card: Reports: chest pain Resp: Reports: dyspnea GI: Reports: abdominal pain; Denies: vomiting : Reports: flank pain and dysuria Musc: Reports: back pain; Denies: joint redness Skin/Breast: Denies: jaundice Psych: Reports: depression Endo: Denies: flushing Eric/Lymph: Reports: easy bruising All/Imm: Denies: acute wheezing Medications/Allergies Home Medications Medication Instructions Recorded Confirmed Last Taken Type amlodipine 5 mg tablet 2.5 mg PO BEDTIME 10/15/22 10/15/22 10/13/22 21:00 History apixaban 5 mg tablet (Eliquis) 5 mg PO BID 10/15/22 10/15/22 10/14/22 20:00 History atenolol 50 mg tablet 75 mg PO DAILY 10/15/22 10/15/22 10/14/22 08:00 History baclofen 10 mg tablet 10 mg PO BID PRN muscle spasms 10/15/22 10/15/22 10/14/22 13:00 History enalapril maleate 20 mg tablet 20 mg PO BID 10/15/22 10/15/22 10/14/22 20:00 History glipizide 5 mg tablet 5 mg PO BID 10/15/22 10/15/22 10/14/22 20:00 History hydrocodone 5 mg-acetaminophen 325 1 - 2 tab PO DIRECTED PRN Pain 10/15/22 10/15/22 10/14/22 18:40 History mg tablet insulin glargine 100 unit/mL (3 35 unit SUBCUT BEDTIME 10/15/22 10/15/22 10/14/22 20:00 History mL) subcutaneous pen (Lantus Solostar U-100 Insulin) isosorbide mononitrate 20 mg tablet 20 mg PO DAILY 10/15/22 10/15/22 10/14/22 08:00 History metformin 1,000 mg tablet 1,000 mg PO BID 10/15/22 10/15/22 10/14/22 18:00 History pantoprazole 40 mg tablet,delayed 40 mg PO DAILY 10/15/22 10/15/22 10/14/22 08:00 History release (Protonix) rosuvastatin 5 mg tablet 5 mg PO BEDTIME 10/15/22 10/15/22 10/14/22 20:00 History tamsulosin 0.4 mg capsule (Flomax) 0.4 mg PO DAILY 10/15/22 10/15/22 10/14/22 08:00 History Allergies Allergy/AdvReac Type Severity Reaction Status Date / Time iodine Allergy ALGY-Rash Verified 10/14/22 22:12 Current Medications Generic Name Dose Route Start Last Admin Trade Name Freq PRN Reason Stop Dose Admin Hydrocodone Bitart/Acetaminophen 1 tab 10/15/22 03:54 10/15/22 05:34 Hydrocodone-Acetaminophen 5-325 Mg Tablet PO 1 tab DIRECTED PRN Administration Pain Ciprofloxacin/Dextrose 400 mg in 200 mls @ 200 mls/hr 10/15/22 03:30 10/15/22 06:33 Cipro IV Infused Q12H MIRIAM Infusion Protocol Insulin Human Lispro 0 unit 10/15/22 07:00 10/15/22 08:25 Insulin Lispro 100 Unit/1 Ml SUBCUT Not Given Q6H MIRIAM Protocol PFSH Acute PFSH: Medical History Atrial fibrillation Bedbound CVA (cerebral vascular accident) Decubital ulcer DM type 2 (diabetes mellitus, type 2) Epididymitis HTN (hypertension) Intertrigo Obesity THIAGO (obstructive sleep apnea) Surgical History Hx of cataract surgery Hx of tonsillectomy Family History Other Cancer Social History Smoking and tobacco status: never smoked Alcohol intake: never Substance/Drug Use: never Marital status: Vitals/I&O/Wt Last Vital Signs Temp 98.6 F 10/15/22 04:00 Pulse 93 10/15/22 04:00 Resp 16 10/15/22 04:00 BP 111/74 10/15/22 04:00 Pulse Ox 96 10/15/22 04:00 O2 Del Method 10/15/22 04:00 O2 Flow Rate 2 10/15/22 04:00 10/14/22 10/15/22 10/15/22 22:59 06:59 14:59 Intake Total 2350 / 2350 Output Total 700 / 700 Balance 1650 / 1650 Weight last 48 hrs Weight 300 lb Physical Exam Const: COMMON NORMALS: no acute distress, alert and well nourished GENERAL APPEARANCE: well kempt and well developed ORIENTATION/CONSCIOUSNESS: not confused HENMT: COMMON NORMALS: normocephalic HEAD & SCALP: normocephalic Neck/C-Spine: GENERAL: Yes normal visual inspection Lymph: OTHER: No palpable groin lymphadenopathy Chest: OTHER: Unlabored Resp: COMMON NORMALS: normal respiratory effort EFFORT & INSPECTION: Yes able to speak in complete sentences, No labored and No Actively coughing Cardio: OTHER: Irregular GI: OTHER: Tenderness to palpation left (left lower and CVA area on the left side. No palpable masses. : OTHER: Some scrotal edema. Uncircumcised phallus. Normal meatus. Foreskin is retractable. Testicles descended. Extremity: COMMON NORMALS: no clubbing, cyanosis or edema Neuro: SENSORIUM/ORIENTATION: Yes alert Psych: APPEARANCE: Yes grossly normal and Yes well kempt ATTITUDE: Yes calm Skin: COMMON NORMALS: no jaundice Urinary Catheter Management: Khoury: Cath Placed During This Visit: yes Reason for Continuing Indwelling Catheter: Acute Urinary Retention or Obstruction Urinary Catheter Date of Insertion: 10/14/22 Urinary Catheter Time of Insertion: 23:30 Data 10/15/22 05:18 10/15/22 05:18 Micro: Microbiology 10/15/22 05:18 Blood Culture - Preliminary Blood SPECIMEN COLLECTED 10/15/22 05:16 Blood Culture - Preliminary Blood SPECIMEN COLLECTED A&P Assessment and plan (1) Ureteral obstruction, left: (2) Hydronephrosis, left: (3) Sepsis: (4) CVA (cerebral vascular accident): (5) Complicated UTI (urinary tract infection): (6) Atrial fibrillation: (7) Acute cystitis: Plan Recommend emergency surgery for cystoscopy and stent placement to take away the question regarding obstructive pyelonephritis as a contributing factor to his acute illness. Reviewed that the goal would not be to make a definitive diagnosis of the possible mass in the left ureter but would consider small amount of contrast injection if feasible hemodynamically at that time. Consult Attestations Medical Necessity Statement: See attending. Acutely ill Coding Level of Care Code Acute Code for [facility] Diagnoses Ureteral obstruction, left N13.5 Hydronephrosis, left N13.30 Sepsis A41.9 CVA (cerebral vascular accident) I63.9 Complicated UTI (urinary tract infection) N39.0 Atrial fibrillation I48.91 Acute cystitis N30.00
[2022-10-15] MEDS: tamsulosin 0.4 mg Capsule PO (09:45)
[2022-10-15] MEDS: aspirin 81 mg EC Tablet PO (09:45)
[2022-10-15] MEDS: pantoprazole DR 40 mg Tablet PO (09:45)
[2022-10-15] MEDS: metoprolol tartrate 25 mg Tablet 12.5 MG PO ×2 (09:45→20:22)
[2022-10-15] MEDS: ciprofloxacin 0.3% Op Soln 2.5 mL Btl 1 DROP EYE-LEFT ×3 (09:56→20:22)
[2022-10-15] MEDS: acetaminophen 325 mg Tablet 650 MG PO ×2 (10:30→21:36)
[2022-10-15] MEDS: morphine 4 mg/mL SDV 1 mL 2 MG IVP (10:33)
[2022-10-15] MEDS: sodium chloride 0.9% 1,000 ML 30 ML IV (11:07)
--- NOTE | 2022-10-15 12:14 | P.ANESASSM_ITS ---
Pre-Anesthetic Assessment Height/Weight: Height 1.78 m Weight 136.078 kg Temp Pulse Resp BP Pulse Ox O2 Del Method O2 Flow Rate 98.1 F 93 16 137/87 95 2 10/15/22 11:03 10/15/22 11:03 10/15/22 11:03 10/15/22 11:03 10/15/22 11:03 10/15/22 11:03 10/15/22 08:39 Operation Date: 10/15/22 11:30 Proposed Procedures p Ureteral Stent Placement(Left) - Armin Sanchez MD s Cystoscopy(Not Applicable) - Armin Sanchez MD Familial anesthetic complications: None Was Beta Matilde taken within 24 hours: Yes Was Clonidine taken within 24 hours: N/A Last intake: Intake Last Liquid Date 10/15/22 Last Liquid Time 09:00 Last Solid Date 10/14/22 Last Solid Time 18:00 Social No alcohol and No tobacco Exam alert, oriented x 3, clear to auscultation bilaterally and regular rate & rhythm Airway Mallampati: Class IV Dentition: chipped Pulmonary Sleep Apnea CV/HEM Atrial Fibrillation and Hypertension Hepatic hepatic steatosis GI Gastroesophageal Reflux Disease Metabolic Diabetes Mellitus and Morbid Obesity Neuropsych Cerebrovascular Accident AMS Anesthetic Plan ASA status: 4 Anesthesia: General Risk of > 500 ml blood loss (7ml/kg in children): No Medications/Allergies Home Medications Medication Instructions Recorded Confirmed Last Taken Type amlodipine 5 mg tablet 2.5 mg PO BEDTIME 10/15/22 10/15/22 10/13/22 21:00 History apixaban 5 mg tablet (Eliquis) 5 mg PO BID 10/15/22 10/15/22 10/14/22 20:00 History atenolol 50 mg tablet 75 mg PO DAILY 10/15/22 10/15/22 10/14/22 08:00 History baclofen 10 mg tablet 10 mg PO BID PRN muscle spasms 10/15/22 10/15/22 10/14/22 13:00 History enalapril maleate 20 mg tablet 20 mg PO BID 10/15/22 10/15/22 10/14/22 20:00 History glipizide 5 mg tablet 5 mg PO BID 10/15/22 10/15/22 10/14/22 20:00 History hydrocodone 5 mg-acetaminophen 325 1 - 2 tab PO DIRECTED PRN Pain 10/15/22 10/15/22 10/14/22 18:40 History mg tablet insulin glargine 100 unit/mL (3 35 unit SUBCUT BEDTIME 10/15/22 10/15/22 20:00 History mL) subcutaneous pen (Lantus Solostar U-100 Insulin) isosorbide mononitrate 20 mg tablet 20 mg PO DAILY 10/15/22 10/15/22 10/14/22 08:00 History metformin 1,000 mg tablet 1,000 mg PO BID 10/15/22 10/15/22 10/14/22 18:00 History pantoprazole 40 mg tablet,delayed 40 mg PO DAILY 10/15/22 10/15/22 10/14/22 08:00 History release (Protonix) rosuvastatin 5 mg tablet 5 mg PO BEDTIME 10/15/22 10/15/22 10/14/22 20:00 History tamsulosin 0.4 mg capsule (Flomax) 0.4 mg PO DAILY 10/15/22 10/15/22 10/14/22 08:00 History Allergies Allergy/AdvReac Type Severity Reaction Status Date / Time iodine Allergy ALGY-Rash Verified 10/14/22 22:12 Current Medications Generic Name Dose Route Start Last Admin Trade Name Freq PRN Reason Stop Dose Admin Acetaminophen 650 mg 10/15/22 03:55 10/15/22 10:30 Acetaminophen 325 Mg Tablet PO 650 mg Q6H PRN Administration Mild/Mod Pain Or Temp >/= 101 Aspirin 81 mg 10/15/22 09:00 10/15/22 09:45 Aspirin 81 Mg Ec Tablet PO 81 mg DAILY MIRIAM Administration Ciprofloxacin HCl 1 drop 10/15/22 09:00 10/15/22 09:56 Ciprofloxacin 0.3% Op Soln 2.5 Ml Btl EYE-LEFT 1 drop QID MIRIAM Administration Protocol Ciprofloxacin/Dextrose 400 mg in 200 mls @ 200 mls/hr 10/15/22 03:30 10/15/22 06:33 Cipro IV Infused Q12H MIRIAM Infusion Protocol Sodium Chloride 1,000 mls @ 30 mls/hr 10/15/22 11:00 10/15/22 11:07 Sodium Chloride 0.9% IV 10/16/22 10:59 30 mls/hr .Q24H MIRIAM Administration Insulin Human Lispro 0 unit 10/15/22 07:00 10/15/22 08:25 Insulin Lispro 100 Unit/1 Ml SUBCUT Not Given Q6H [facility] Protocol Metoprolol Tartrate 12.5 mg 10/15/22 09:00 10/15/22 09:45 Metoprolol Tartrate 25 Mg Tablet PO 12.5 mg BID@0900,2100 MIRIAM Administration Pantoprazole Sodium 40 mg 10/15/22 09:00 10/15/22 09:[address] 40 Mg Tablet PO 40 mg DAILY MIRIAM Administration Polyethylene Glycol 17 gm 10/15/22 09:00 10/15/22 10:02 Polyethylene Glycol 3350 Pkt 17 Gm PO Not Given DAILY MIRIAM Tamsulosin HCl 0.4 mg 10/15/22 09:00 10/15/22 09:45 Tamsulosin 0.4 Mg Capsule PO 0.4 mg DAILY MIRIAM Administration PFSH Anesthesia Medical History Atrial fibrillation Bedbound CVA (cerebral vascular accident) Decubital ulcer DM type 2 (diabetes mellitus, type 2) Epididymitis HTN (hypertension) Intertrigo Obesity THIAGO (obstructive sleep apnea) Surgical History Hx of cataract surgery Hx of tonsillectomy Family History Other Cancer Social History Smoking and tobacco status: never smoked Alcohol intake: never Substance/Drug Use: never Marital status: Data Anesthesia 10/15/22 05:18 10/15/22 05:18 Short CBC 10/14/22 10/15/22 Range/Units 22:25 05:18 WBC 19.2 H 19.0 H (4.0-10.0) 10^3/uL Hgb 14.0 12.0 (11.7-16.6) g/dL Hct 42.3 37.5 L (42.0-52.0) % MCV 91.8 91.9 (80-94) fl Plt Count 234 204 (130-400) 10^3/cmm Neut % (Auto) 82.1 80.5 % Neut # (Auto) 15.79 H 15.28 H (1.8-7.7) 10^3/uL BMP 10/14/22 10/15/22 22:25 05:18 Sodium 134 L 136 Potassium 4.3 4.7 Chloride 96 L 101 Carbon Dioxide 24 25 BUN 11 11 Creatinine 0.9 0.8 Glucose 139 H 152 H Calcium 9.5 8.9 Cardiac Enzymes 10/14/22 10/14/22 10/15/22 Range/Units 22:25 22:25 01:41 Troponin T Baseline 30 H (0-15) ng/L Troponin T 120 Minute 30.46 H (0-15) ng/L Delta Troponin T 0.46 (0-10) ABS# Troponin T Hi Sens 6Hr (0-15) ng/L Troponin T Hi Sens 6Hr Delta (0-12) ng/L NT-Pro-B Natriuret Pep 664 H (0-450) pg/mL 10/15/22 Range/Units 05:16 Troponin T Baseline (0-15) ng/L Troponin T 120 Minute (0-15) ng/L Delta Troponin T (0-10) ABS# Troponin T Hi Sens 6Hr 28.53 H (0-15) ng/L Troponin T Hi Sens 6Hr Delta -1.47 L (0-12) ng/L NT-Pro-B Natriuret Pep (0-450) pg/mL Liver Function 10/14/22 Range/Units 22:25 Total Bilirubin 0.7 (0.15-1.2) mg/dL AST 13 (0-40) U/L ALT 8 (0-41) U/L Alkaline Phosphatase 50 (40-130) U/L Albumin 3.8 (3.5-5.2) g/dL Urine 10/14/22 Range/Units 23:37 Urine Color Yellow (Yellow) Urine Appearance Cloudy A (CLEAR) Urine pH 6 (5-7) Ur Specific [place] 1.010 (1.005-1.030) Urine Protein 1+ H (Negative) Urine Glucose (UA) Norm (Normal) Urine Ketones 1+ H (Negative) Urine Nitrate Positive H (Negative) Urine Bilirubin Neg (Negative) Ur Leukocyte Esterase 2+ H (Negative) Urine RBC 0-4 H (0-2) /hpf Urine WBC Too numerous to cnt H (0-5) /hpf COVID Results 10/14/22 23:17 SARS-CoV-2 Ag (Rapid) negative Coags 10/14/22 22:25 PT 14.90 INR 1.14 ABG 10/14/22 21:11 Specimen Type Arterial Sample Site Brachial, right ABG pH 7.40 ABG pCO2 38.0 ABG pO2 72.0 L ABG HCO3 23.7 ABG Base Excess -0.9 O2 Delivery Device Nc O2 Liters/Min 2.0 FiO2 28.0 Microbiology 10/15/22 05:18 Blood Culture - Preliminary Blood SPECIMEN COLLECTED 10/15/22 05:16 Blood Culture - Preliminary Blood SPECIMEN COLLECTED Cardiac Studies: No Data to Display
[2022-10-15] MEDS: iohexol 300 mg/mL 50 mL Btl (OR ONLY) XX (13:25)
--- NOTE | 2022-10-15 13:45 | P.OP_ITS ---
Operative Report Date of procedure: October 15, 2022 Pre-op diagnosis: 1. Left ureteral obstruction with UTI/sepsis Post-op diagnosis: 1. Left ureteral obstruction with UTI/sepsis Procedure done: 1. Cystoscopy, LEFT retrograde ureterogram 2. Left ureteral stent placement Specimens removed/disposition: None Pathology: None Surgeon: Laura Estimated blood loss: Minimal Urine output: Not measured Complications: None Findings: Anesthesia: General Condition: Stable Disposition: PACU Intraoperative findings: * Relatively narrow ureteral orifices but easily intubated will be a guidewire. * Small amount of contrast was injected in the distal ureter. Could not see any evidence of a papillary type lesion in the distal ureter but it was an adequate study for full inspection. * The ureter itself appeared to be very consistent with chronically dilated. Look suspicious for adynamic type segment but that is inconclusive * 8.5 Singaporean by 30 cm double-pigtail stent was left indwelling with good drainag demonstrated Brief History: Richard is a very pleasant 77-year-old white male with severe multiple comorbidities. Please see consult for full details in H&P by attending. He was discovered during work-up of cystitis with evidence of sepsis to have a dilated renal pelvis and ureter down to the UVJ with a hint of a filling defect on the CT scan. Unfortunately there was no precontrast images to compare with and that the contrast that was filling the ureter had been injected about 2 hours prior during a head CT scan. His urine was clearly infected. Lactate was elevated. White count was elevated. A full discussion was held with the patient and his family members regarding these findings and interpretation. It was recommended that he undergo a cystosc opy and stent placement (possible retrograde) with initial goal of improving success rate of infection treatment by draining his upper urinary tract which was obstructed. More definitive evaluation and treatment of the distal ureteral obstruction would be postponed. All were in agreement. Procedure: After urgent evaluation examination and obtaining of informed consent he was taken to the operating suite on 10/15/2022 where general anesthesia was administered without difficulty after appropriate timeout was performed, SCDs confirmed to be functioning, preoperative antibiotics administered, beta-jason protocol confirmed. Prepped and draped in usual sterile fashion in dorsolithotomy position pain careful attention to avoiding pressure points. 21 Singaporean cystoscope with 30 degree lens was introduced into urethra meatus and advanced into the bladder without difficulty. The bladder was systematically examined. Both orifices were quite small but normally positioned. Fluoroscopy revealed no retained contrast in the ureters. A flexible tip guidewire was advanced into the left ureteral orifice for about 6 or 8 inches with tortuosity of the ureter demonstrated as expected based on the CT scan. An open-ended ureteral catheter was then advanced over the guidewire into the distal ureter which allowed easy passage of the wire all the way up to the kidney. The open-ended ureteral catheter was removed and the wire was secured to the drapes as a safety wire. A second wire was then advanced into the distal aspect of the ureter and an opening ureteral catheter was advanced over it and then the wire removed. The catheter was left to drainage for a few minutes to allow decompression of the dilated ureter and a small amount of co ntrast was injected to try to visualize whether there was or was not any type of mass in the distal ureter. The contrast was still quite diluted by the urine in the collecting system so the injection portion of the contrast/retrograde was inconclusive as to the reason for the obstruction. But least he can be said that no obvious soft tissue density was identified The open-ended ureteral catheter was removed. The cystoscope was then backloaded over the safety wire and a 8.5 Singaporean by 30 cm double-pigtail stent without string was advanced easily over the guidewire through the cystoscope into appropriate position as confirmed via fluoroscopy and cystoscopy. The stent was confirmed to be functioning. The bladder was then drained with a 16 Singaporean Khoury catheter with good function. He was awakened in the operating room and returned to PACU in stable condition. PLANS: 1. Maintain left ureteral stent until significantly improved and recovered from infection 2. Will plan on a CT scan repeated with without contrast for better characterization of the ureter prior to considering ureteroscopy
--- NOTE | 2022-10-15 13:54 | ANE.PACU2 ---
Inpatient post-anesthesia follow up: Airway intact: Yes Vital signs: Temperature 98.1 F Pulse Rate 93 Respiratory Rate 16 Blood Pressure 137/87 Pulse Oximetry 95 Oxygen Delivery Me thod Room Air Oxygen Flow Rate 2 Fraction of Inspir ed Oxygen Hydration adequate: Yes Nausea and vomiting: No Pain level: 1 Mental status: Baseline
[2022-10-15 15:54] LABS: Glucose Point of Care 148 mg/dL (70-110)
--- NOTE | 2022-10-15 19:06 | PM.MISC ---
Miscellaneous Note Purpose of Documentation: overnight H&P reviewed. patient is s/p Cystoscopy, left retrograde ureterogram and left ureteral stent placement today. Tolerated procedure well. Will resume Eliquis after discussion.
[2022-10-15 20:03] LABS: Glucose Point of Care 222 mg/dL (70-110)
[2022-10-15] MEDS: insulin lispro 100 unit/1 mL SUBCUT (20:21)
[2022-10-15] MEDS: atorvastatin 40 mg Tablet PO (20:21)
[2022-10-15] MEDS: insulin glargine 100 units/1 mL 20 UNIT SUBCUT (20:30)
[2022-10-15] MEDS: apixaban 5 mg Tablet PO (21:34)
[2022-10-16] VITALS: BP 133/70; PULSE 66; RESP 16; TEMP 36.4; O2SAT 92
[2022-10-16 00:31] LABS: Glucose Point of Care 169 mg/dL (70-110)
[2022-10-16] MEDS: insulin lispro 100 unit/1 mL SUBCUT ×4 (01:59→17:42)
[2022-10-16 02:01] LABS: Glucose Point of Care 186 mg/dL (70-110)
[2022-10-16 04:00] VITALS: BP 149/96; PULSE 115; RESP 17; TEMP 36.6; O2SAT 92
[2022-10-16] MEDS: HYDROcodone-acetaminophen 5-325 mg Tablet 1 TAB PO ×3 (04:08→15:22)
[2022-10-16] MEDS: ciprofloxacin 400 MG/200 ML PREMIX 200 MG IV ×2 (04:08→16:28)
[2022-10-16 05:59] LABS: Basophils % 0.2 %; Eosinophils % 0.1 %; Hematocrit 35.3 % (42.0-52.0); Hemoglobin 11.4 g/dL (11.7-16.6); Lymphocytes # 1.7 10^3/uL (0.8-4.8); Lymphocytes % 13.2 %; Mean Corpuscular HGB Conc 32.3 g/dL (30.0-36.0); Mean Corpuscular Hemoglobin 29.7 pg (28.0-34.0); Mean Corpuscular Volume 91.9 fl (80-94); Mean Platelet Volume 9.6 fL (7.4-10.4); Monocytes # 1.2 10^3/uL (0.2-0.9); Monocytes % 8.9 %; Neutrophils # 10.06 10^3/uL (1.8-7.7); Neutrophils % 77.3 %; Nucleated Red Blood Cells % 0 %; Platelet Count 171 10^3/cmm (130-400); Red Blood Count 3.84 10^6/uL (4.1-5.3); Red Cell Distribution Width 12.6 % (12.1-15.1)
[2022-10-16 06:14] LABS: Glucose Point of Care 211 mg/dL (70-110)
[2022-10-16 06:22] LABS: Alanine Aminotransferase 6 U/L (0-41); Alkaline Phosphatase 39 U/L (40-130); Anion Gap 12.1 (5-19); Aspartate Amino Transferase 11 U/L (0-40); Blood Urea Nitrogen 13 mg/dL (8-23); Calcium 8.8 mg/dL (8.5-10.5); Carbon Dioxide 25 mmol/L (22-29); Chloride 100 mmol/L (98-107); Globulin 3.2 g/dL (1.3-4.6); Glucose 199 mg/dL (65-115); Osmolality Calculated 282 mOsm/kg (285-295); Potassium 4.1 mmol/L (3.5-5.1); Sodium 133 mmol/L (136-145); Total Bilirubin 0.3 mg/dL (0.15-1.2); Total Protein 6.2 g/dL (6.6-8.7)
[2022-10-16 06:26] LABS: Estmated Average Glucose 128; Hemoglobin A1C 6.1 % (4.0-6.0)
[2022-10-16] MEDS: acetaminophen 325 mg Tablet 650 MG PO (07:23)
[2022-10-16 08:00] VITALS: BP 143/87; PULSE 84; RESP 14; TEMP 36.8; O2SAT 97
--- NOTE | 2022-10-16 09:26 | P.PN_ITS ---
Subjective Subjective: Urology follow-up: Postop day #1, LEFT ureteral stent placement and left retrograde ureterogram White count is decreased from 19-3.0. His vital signs have been stable and he has been afebrile all night. Khoury catheter functioning well. Eliquis started last night. Overall he is doing much better. Much more awake and lucid. Denies any significant left-sided pain. Thinks his pain is essentially back to baseline. Reviewed again with the patient and the family the big picture items. * Still need further clarification on the mass in left distal ureter. We will plan on a CT scan with and without contrast for further clarification. We will plan on that prior to discharge. May be on Tuesday. * If evidence of a soft tissue mass he will need a biopsy. If no mass then consider repeat ureteroscopy for evaluation for possible adynamic segment. * Both the above would be postponed until has been clarified further with CT scan as well as resolution of infectious concerns. All of this was discussed in detail. Good questions asked by the family. They seemed content with my answers. Vitals/I&O/Wt Last Vital Signs Temp 98.2 F 10/16/22 08:00 Pulse 84 10/16/22 08:00 Resp 14 10/16/22 08:00 BP 143/87 10/16/22 08:00 Pulse Ox 97 10/16/22 08:00 O2 Del Method 10/16/22 08:00 O2 Flow Rate 10 10/15/22 13:54 10/15/22 10/16/22 10/16/22 22:59 06:59 14:59 Intake Total 200 / 1125.5 440 / 1565.5 Output Total 1025 / 1025 275 / 1300 Balance -825 / 100.5 165 / 265.5 Weight last 48 hrs Weight 338 lb 3 oz Weight 300 lb Physical Exam Urinary Catheter Management: Khoury: Cath Placed During This Visit: yes, but has since been removed by the nurse Reason for Continuing Indwelling Catheter: Other Urinary Catheter Date of Insertion: 10/15/22 Urinary Catheter Time of Insertion: 13:34 Date Urinary Catheter Removed: 10/15/22 Time Urinary Catheter Discontinued: 13:23 Data 10/16/22 05:51 10/16/22 05:51 Micro: Microbiology 10/15/22 05:18 Blood Culture - Preliminary Blood NEGATIVE TO DATE 10/15/22 05:16 Blood Culture - Preliminary Blood NEGATIVE TO DATE A&P Assessment and plan (1) Ureteral obstruction, left: Differential diagnosis includes adynamic segment, intraluminal mass. Needs further clarification I think a CT scan before discharge would be helpful. The initial CT scan was inadequate for detail required because of the contrast already present in the distal ureter at the time of the scan from the previous CT scan of the head. (2) Hydronephrosis, left: See above (3) Sepsis: Clinically much improved (4) CVA (cerebral vascular accident): Chronic deficits (5) Complicated UTI (urinary tract infection): History of recurrent UTIs unclear etiology. (6) Atrial fibrillation: On chronic Eliquis. (7) Acute cystitis: Attestations Medical Necessity Statement*: See attending Coding Level of Care Code Acute Code for [facility] Fwd Diagnoses Ureteral obstruction, left N13.5 Hydronephrosis, left N13.30 Sepsis A41.9 CVA (cerebral vascular accident) I63.9 Complicated UTI (urinary tract infection) N39.0 Atrial fibrillation I48.91 Acute cystitis N30.00
[2022-10-16] MEDS: ciprofloxacin 0.3% Op Soln 2.5 mL Btl 1 DROP EYE-LEFT ×4 (09:57→20:31)
[2022-10-16] MEDS: atenolol 50 mg Tablet 75 MG PO (09:57)
[2022-10-16] MEDS: polyethylene glycol 3350 Pkt 17 gm PO (09:57)
[2022-10-16] MEDS: metoprolol tartrate 25 mg Tablet 12.5 MG PO ×2 (09:59→20:30)
[2022-10-16] MEDS: pantoprazole DR 40 mg Tablet PO (09:59)
[2022-10-16] MEDS: tamsulosin 0.4 mg Capsule PO (10:00)
[2022-10-16] MEDS: apixaban 5 mg Tablet PO ×2 (10:04→17:42)
[2022-10-16 12:00] VITALS: BP 135/80; PULSE 84; RESP 16; TEMP 36.7; O2SAT 94
[2022-10-16 12:26] LABS: Glucose Point of Care 222 mg/dL (70-110)
[2022-10-16 16:00] VITALS: BP 135/80; PULSE 80; RESP 16; TEMP 36.7; O2SAT 94
[2022-10-16 17:11] LABS: Glucose Point of Care 174 mg/dL (70-110)
--- NOTE | 2022-10-16 17:44 | P.PN_ITS ---
Subjective Subjective: No new complaints today. He is afebrile. states that mentation is back at his baseline. White count is trending down. Urine culture with gram-negative rods pending final identification. Medications: Reviewed: Yes Vitals/I&O/Wt Last Vital Signs Temp 98.1 F 10/16/22 16:00 Pulse 80 10/16/22 16:00 Resp 16 10/16/22 16:00 BP 135/80 10/16/22 16:00 Pulse Ox 94 10/16/22 16:00 O2 Del Method 10/16/22 16:00 O2 Flow Rate 10 10/15/22 13:54 10/16/22 10/16/22 10/16/22 06:59 14:59 22:59 Intake Total 440 / 1565.5 Output Total 275 / 1300 400 / 400 Balance 165 / 265.5 -400 / -400 Weight last 48 hrs Weight 153.399 kg Weight 136.078 kg Physical Exam Narrative: General: No acute distress, AO x3 HEENT: PERRLA, pupils bilaterally equal and reactive, pallors not present Chest: Normal vesicular breath sounds, no added sounds, equal good air entry bilaterally CVS: S1-S2 regular, no murmurs, no tachycardia, no gallops, no rubs Abdomen: Soft, nontender, no organomegaly, bowel sounds present Neuro: No focal deficits, no facial deformity, AO x3, power 5/5 in all limbs Urinary Catheter Management: Khoury: Cath Placed During This Visit: yes, but has since been removed by the nurse Reason for Continuing Indwelling Catheter: Other Urinary Catheter Date of Insertion: 10/15/22 Urinary Catheter Time of Insertion: 13:34 Date Urinary Catheter Removed: 10/15/22 Time Urinary Catheter Discontinued: 13:23 Data 10/16/22 05:51 10/16/22 05:51 Micro: Microbiology 10/14/22 23:37 Urine Culture - Preliminary Urine,Clean Catch Gram Negative Rods 10/15/22 05:18 Blood Culture - Preliminary Blood NEGATIVE TO DATE 10/15/22 05:16 Blood Culture - Preliminary Blood NEGATIVE TO DATE A&P Assessment and plan (1) Acute encephalopathy: Altered mental status at home, with confusion, agitation. Acute encephalopathy secondary to sepsis, complicated UTI. Around mentation is now back at baseline. (2) Sepsis: Suspected sepsis with leukocytosis 19.2, tachycardia initially 115, currently 104. Initially tachypnea of 30. End organ effects with acute encephalopathy, additionally hypoperfusion with lactic acidosis 4.8. Mild troponin elevation with demand ischemia. Evidence of UTI. Gram-negative rods identified on urine culture, pending furt her identification. (3) Complicated UTI (urinary tract infection): CT moderate to severe left hydronephrosis and hydroureter. Apparent filling defect in the left distal ureter. Status postplacement of stent yesterday. Anticoagulation resumed (4) Hydronephrosis: As above. (5) Paroxysmal atrial fibrillation with RVR: On presentation paroxysmal atrial fibrillation with RVR up to 115. Resume home medications Resume Eliquis no signs of hematuria at this time. 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 Noted subacute and/or chronic posterior right cerebral artery distribution encephalomalacia/artifact. CT results noted, intracranial unremarkable, very limited examination of the neck. Will assess with duplex. Continue statin. Known diabetes, check A1c. Known A-fib normally on anticoagulation. THIAGO. Morbid obesity. Never smoker. Pretty much bedbound at baseline. We will get ST, OT evaluation. (7) Chest pain: Fluids. Complete troponin EKG series. Continue aspirin, statin, beta-jason. Hold Imdur for now given sepsis, risk of hypotension. (8) Intertrigo: Nystatin cream, Interdry strips twice daily. (9) Conjunctivitis of left eye: Cipro (10) Bedbound: (11) Hepatic steatosis: Incidentally noted on CT. Consider low-fat/low-cholesterol diet when resumed. Would benefit from weight loss. Continue to optimize control of diabetes. Does not drink any alcohol. (12) Constipation: MiraLAX, lactulose as needed (13) Lumbar compression fracture: Chronic. Lidocaine patch if needed. Tylenol as needed. [place] as needed. Plan History of decubital ulcer which reepithelialized. DM2: Continue insulin, reduce dose to 20 units, currently NPO. Sliding scale insulin. Accu-Cheks requested. History of HTN THIAGO: On nightly CPAP, requested Discussed with ER physician. ER documentation reviewed. Discussed with his family at bedside. Attestations Medical Necessity Statement*: gram-negative emelia on urine culture pending final identification. Once susceptibility data is available will change antibiotics in anticipation of discharge home. 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
[2022-10-16 19:39] VITALS: BP 143/84; PULSE 69; RESP 16; TEMP 36.7; O2SAT 93
[2022-10-16] MEDS: atorvastatin 40 mg Tablet PO (20:30)
[2022-10-16] MEDS: insulin glargine 100 units/1 mL 20 UNIT SUBCUT (20:31)
[2022-10-16 21:22] LABS: Glucose Point of Care 214 mg/dL (70-110)
[2022-10-17] VITALS (7 sets, daily range): BP systolic 133–176; BP diastolic 79–97; PULSE 71–91; RESP 17–20; TEMP 36.4–37; O2SAT 94–99
[2022-10-17 00:12] LABS: Glucose Point of Care 206 mg/dL (70-110)
[2022-10-17] MEDS: insulin lispro 100 unit/1 mL SUBCUT ×4 (00:13→18:00)
[2022-10-17] MEDS: HYDROcodone-acetaminophen 5-325 mg Tablet 1 TAB PO ×3 (03:01→20:25)
[2022-10-17 03:50] LABS: Basophils # 0.1 10^3/uL (0.0-0.1); Basophils % 0.5 %; Eosinophils # 0.2 10^3/uL (0.0-0.8); Eosinophils % 1.7 %; Hematocrit 34.7 % (42.0-52.0); Hemoglobin 11.2 g/dL (11.7-16.6); Lymphocytes # 2.9 10^3/uL (0.8-4.8); Lymphocytes % 24.9 %; Mean Corpuscular HGB Conc 32.3 g/dL (30.0-36.0); Mean Corpuscular Hemoglobin 29.8 pg (28.0-34.0); Mean Corpuscular Volume 92.3 fl (80-94); Mean Platelet Volume 9.8 fL (7.4-10.4); Monocytes # 1.3 10^3/uL (0.2-0.9); Monocytes % 10.9 %; Neutrophils # 7.18 10^3/uL (1.8-7.7); Neutrophils % 61.7 %; Nucleated Red Blood Cells % 0 %; Platelet Count 197 10^3/cmm (130-400); Red Blood Count 3.76 10^6/uL (4.1-5.3); Red Cell Distribution Width 12.4 % (12.1-15.1); White Blood Count 11.7 10^3/uL (4.0-10.0)
[2022-10-17 04:13] LABS: Alanine Aminotransferase 7 U/L (0-41); Albumin Level 2.9 g/dL (3.5-5.2); Alkaline Phosphatase 38 U/L (40-130); Anion Gap 11.6 (5-19); Aspartate Amino Transferase 12 U/L (0-40); Blood Urea Nitrogen 15 mg/dL (8-23); Calcium 8.8 mg/dL (8.5-10.5); Carbon Dioxide 25 mmol/L (22-29); Chloride 100 mmol/L (98-107); Glucose 178 mg/dL (65-115); Osmolality Calculated 281 mOsm/kg (285-295); Potassium 3.6 mmol/L (3.5-5.1); Sodium 133 mmol/L (136-145); Total Bilirubin 0.2 mg/dL (0.15-1.2); Total Protein 5.9 g/dL (6.6-8.7)
[2022-10-17] MEDS: ciprofloxacin 400 MG/200 ML PREMIX 200 MG IV (05:16)
[2022-10-17 06:24] LABS: Glucose Point of Care 196 mg/dL (70-110)
[2022-10-17] MEDS: ciprofloxacin 0.3% Op Soln 2.5 mL Btl 1 DROP EYE-LEFT ×4 (08:51→20:26)
[2022-10-17] MEDS: polyethylene glycol 3350 Pkt 17 gm PO (08:52)
[2022-10-17] MEDS: metoprolol tartrate 25 mg Tablet 12.5 MG PO ×2 (08:52→20:25)
[2022-10-17] MEDS: tamsulosin 0.4 mg Capsule PO (08:52)
[2022-10-17] MEDS: atenolol 50 mg Tablet 75 MG PO (08:52)
[2022-10-17] MEDS: pantoprazole DR 40 mg Tablet PO (08:52)
[2022-10-17] MEDS: apixaban 5 mg Tablet PO ×2 (08:53→18:00)
[2022-10-17 11:13] LABS: Glucose Point of Care 198 mg/dL (70-110)
--- NOTE | 2022-10-17 12:07 | CTR_ITS ---
PROCEDURE INFORMATION: Exam: CT Abdomen And Pelvis Without And With Contrast Exam date and time: 10/17/2022 2:24 PM Age: 77 years old Clinical indication: Other: Ureteral mass, ureteral obstruction TECHNIQUE: Imaging protocol: Computed tomography of the abdomen and pelvis without and with contrast. Radiation optimization: All CT scans at this facility use at least one of these dose optimization techniques: automated exposure control; mA and/or kV adjustment per patient size (includes targeted exams where dose is matched to clinical indication); or iterative reconstruction. Contrast material: OMIN 350; Contrast volume: 100 ml; Contrast route: INTRAVENOUS (IV); REPORTING DATA: Count of CT and Cardiac NM exams in prior 12 months: This patient has received 3 known CTs and 0 known cardiac nuclear medicine studies in the 12 months prior to the current study. COMPARISON: CT abdomen pelvis wo con [id number] 10/15/2022 12:48 AM RADIATION DOSE METRICS: Total DLP (mGy-cm): 3948.33 FINDINGS: Tubes, catheters and devices: Internal left nephroureteral stent that appears in satisfactory position. Moderate dilatation of the left ureter extending to the ureterovesical junction possibly secondary to stricture at the ureterovesical junction. Lungs: Minor atelectatic changes and smooth pleural thickening left lung base. Liver: Normal. No mass. Gallbladder and bile ducts: Normal. No calcified stones. No ductal dilation. Pancreas: Normal. No ductal dilation. Spleen: Normal. No splenomegaly. Adrenal glands: Normal. No mass. Kidneys and ureters: Right kidney collecting system is unremarkable. Stomach and bowel: Moderate gaseous distention of the large bowel likely secondary to colonic ileus. Appendix: No evidence of appendicitis. Intraperitoneal space: Unremarkable. No free air. No significant fluid collection. Vasculature: Scattered atherosclerotic changes of the abdominal aorta and iliac vessels. No aortic aneurysm. Developmental variation with left-sided IVC. Lymph nodes: Unremarkable. No enlarged lymph nodes. Urinary bladder: Khoury catheter balloon within the urinary bladder with diffuse bladder wall thickening unchanged. Reproductive: Unremarkable as visualized. 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 Degenerative changes lower lumbar spine with severe chronic compression fracture L4 unchanged. Soft tissues: Unremarkable. CT/CT abdomen pelvis wo/w [id number] IMPRESSION: 1. Interval placement of left internal ureteral stent with stable dilatation of the left ureter terminating at the left ureterovesical junction etiology of which is unclear. 2. Pronounced bladder wall thickening unchanged. 3. Additional chronic findings as above.
[2022-10-17] MEDS: iohexol 350 mg/mL 500 mL Btl (per mL) IV (14:28)
[2022-10-17] MEDS: iohexol 350 mg/mL 500 mL Btl (per mL) PO (14:29)
[2022-10-17 16:46] LABS: Glucose Point of Care 194 mg/dL (70-110)
--- NOTE | 2022-10-17 17:09 | PM.PN ---
Subjective Subjective: no acute interim events, afberile, urine cx finalized. Planned for repeat CT today. Medications: Reviewed: Yes Vitals/I&O/Wt Last Vital Signs Temp 97.6 F 10/17/22 16:00 Pulse 71 10/17/22 16:00 Resp 18 10/17/22 16:00 BP 159/82 10/17/22 16:00 Pulse Ox 95 10/17/22 16:00 O2 Del Method 10/17/22 16:00 O2 Flow Rate 2 10/17/22 07:38 10/17/22 10/17/22 10/17/22 06:59 14:59 22:59 Intake Total 920 / 1240 240 / 240 Balance 920 / 115 240 / 240 Weight last 48 hrs Weight 156.308 kg Weight 153.399 kg Physical Exam Narrative: General: No acute distress, Alert HEENT: PERRLA, pupils bilaterally equal and reactive, pallors not present Chest: Normal vesicular breath sounds, no added sounds, equal good air entry bilaterally CVS: S1-S2 regular, no murmurs, no tachycardia, no gallops, no rubs Abdomen: Soft, nontender, no organomegaly, bowel sounds present Urinary Catheter Management: Khoury: Cath Placed During This Visit: yes, but has since been removed by the nurse Reason for Continuing Indwelling Catheter: Acute Urinary Retention or Obstruction Urinary Catheter Date of Insertion: 10/15/22 Urinary Catheter Time of Insertion: 13:34 Date Urinary Catheter Removed: 10/15/22 Time Urinary Catheter Discontinued: 13:23 Data 10/17/22 03:30 10/17/22 03:30 Micro: Microbiology 10/14/22 23:37 Urine Culture - Final Urine,Clean Catch Escherichia coli Urine Culture Final 10/17/22-1139 Organism 1 Escherichia coli [place] Count >100,000 CFU/ml DAY 2 E coli M.I.C. RX --------- ------ * Amikacin <=16 S * Amoxicillin/Clavulanate <=8/4 S * Ampicillin <=8 S * Ampicillin/Sulbactam <=8/4 S * Aztreonam <=4 S * Cefepime <=8 S * Ceftriaxone <=1 S * Cefuroxime <=4 S * Ciprofloxacin <=1 S * Gentamicin <=2 S * Imipenem <=1 S * Levofloxacin <=2 S * Nitrofurantoin <=32 S * Tetracycline <=4 S * Trimethoprim/Sulfamethoxazole <=2/38 S * Piperacillin/Tazobactam <=16 S A&P Assessment and plan (1) Acute encephalopathy: Altered mental status at home, with confusion, agitation. Acute encephalopathy secondary to sepsis, complicated UTI. mentation is now back at baseline. (2) Sepsis: Suspected sepsis with leukocytosis 19.2, tachycardia initially 115, currently 104. Initially tachypnea of 30. End organ effects with acute encephalopathy, additionally hypoperfusion with lactic acidosis 4.8. Mild troponin elevation with demand ischemia. Evidence of UTI. Now resolved (3) Complicated UTI (urinary tract infection): CT moderate to severe left hydronephrosis and hydroureter. Apparent filling defect in the left distal ureter. Status post LEFT ureteral stent placement and left retrograde ureterogram on 10/15. Still need further clarification on the mass in left distal ureter.? CT scan with and without contrast for further clarification.?If evidence of a soft tissue mass he will need a biopsy.? If no mass then consider repeat ureteroscopy for evaluation for possible adynamic segment. (4) Hydronephrosis: As above. 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 DM2: Continue insulin, reduce dose to 20 units, currently NPO. Sliding scale insulin. Accu-Cheks requested. History of HTN THIAGO: On nightly CPAP, requested Discussed with ER physician. ER documentation reviewed. Discussed with his family at bedside. 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
--- NOTE | 2022-10-17 18:57 | P.PN_ITS ---
Subjective Subjective: Urology follow-up: Postop day #2. Continues to improve. Urine culture showed pansensitive E. coli. Discussed with Dr. Reid. Did recommend a CT scan abdomen and pelvis with and without contrast to assess for source of ureteral obstruction prior to discharge. Reviewed also with the senior electronics technician regarding targeted information. Recommend taking the Khoury catheter out after the CT scan. Discharge per Dr. Reid. I will plan on communicating with him and family possibly via telemedicine so metime next week or early the following week to make more definitive plans based on the CT scan findings. Reviewed again with one of the sons and his the differential diagnosis and potential management of those diagnoses. Expressed good understanding. Also discussed potential strategies and tactics for recurrent UTI prevention with focus on suppression and/or improving baseline voiding dynamics. We do not really have any information on that per se at this point. Medications: Reviewed: Yes Vitals/I&O/Wt Last Vital Signs Temp 98.4 F 10/17/22 11:56 Pulse 81 10/17/22 11:56 Resp 19 H 10/17/22 11:56 BP 133/85 10/17/22 11:56 Pulse Ox 94 10/17/22 11:56 O2 Del Method 10/17/22 11:56 O2 Flow Rate 2 10/17/22 07:38 10/16/22 10/17/22 10/17/22 22:59 06:59 14:59 Intake Total 320 / 320 920 / 1240 240 / 240 Output Total 725 / 1125 Balance -405 / -805 920 / 115 240 / 240 Weight last 48 hrs Weight 344 lb 9.6 oz Weight 338 lb 3 oz Physical Exam Narrative: Up in chair. No acute distress. Pleasant cooperative throughout exam Unlabored respiration Left-sided weakness. Urine is clear. No blood, catheter is functioning well. No obvious abdominal tenderness. Urinary Catheter Management: Khoury: Cath Placed During This Visit: yes, but has since been removed by the nurse Reason for Continuing Indwelling Catheter: Acute Urinary Retention or Obstruction Urinary Catheter Date of Insertion: 10/15/22 Urinary Catheter Time of Insertion: 13:34 Date Urinary Catheter Removed: 10/15/22 Time Urinary Catheter Discontinued: 13:23 Data 10/17/22 03:30 10/17/22 03:30 Micro: Microbiology 10/14/22 23:37 Urine Culture - Final Urine,Clean Catch Escherichia coli A&P Assessment and plan (1) Ureteral obstruction, left: Differential diagnosis includes adynamic segment, intraluminal mass. Needs further clarification I think a CT scan before discharge would be helpful. The initial CT scan was inadequate for detail required because of the contrast already present in the distal ureter at the time of the scan from the previous CT scan of the head. (2) Hydronephrosis, left: See above (3) Sepsis: Clinically much improved (4) CVA (cerebral vascular accident): Chronic deficits (5) Complicated UTI (urinary tract infection): History of recurrent UTIs unclear etiology. Also reviewed with the patient and his family some strategies for potentially decreasing frequency of recurrent UTIs with focus on suppressive therapy and improving baseline voiding at that over time is apparently a contributing factor. On follow-up he will need some voiding studies to assess adequacy of voiding dynamics. (6) Atrial fibrillation: On chronic Eliquis. (7) Acute cystitis: Attestations Medical Necessity Statement*: See attending Coding Level of Care Code Acute Code for [facility] Diagnoses Ureteral obstruction, left N13.5 Hydronephrosis, left N13.30 Sepsis A41.9 CVA (cerebral vascular accident) I63.9 Complicated UTI (urinary tract infection) N39.0 Atrial fibrillation I48.91 Acute cystitis N30.00
[2022-10-17] MEDS: atorvastatin 40 mg Tablet PO (20:25)
[2022-10-17] MEDS: ciprofloxacin 500 mg Tablet PO (20:25)
[2022-10-17] MEDS: insulin glargine 100 units/1 mL 20 UNIT SUBCUT (20:26)
[2022-10-17 23:16] LABS: Glucose Point of Care 239 mg/dL (70-110)
[2022-10-17] MEDS: acetaminophen 325 mg Tablet 650 MG PO (23:47)
[2022-10-18] VITALS: BP 160/80; PULSE 76; RESP 19; TEMP 36.7; O2SAT 96
[2022-10-18] MEDS: insulin lispro 100 unit/1 mL SUBCUT ×3 (00:47→14:05)
[2022-10-18 03:56] VITALS: BP 138/82; PULSE 60; RESP 16; TEMP 36.4; O2SAT 96
[2022-10-18 04:43] LABS: Basophils # 0.1 10^3/uL (0.0-0.1); Basophils % 1.1 %; Eosinophils # 0.3 10^3/uL (0.0-0.8); Eosinophils % 3.7 %; Hematocrit 36.4 % (42.0-52.0); Hemoglobin 11.7 g/dL (11.7-16.6); Lymphocytes # 2.4 10^3/uL (0.8-4.8); Mean Corpuscular HGB Conc 32.1 g/dL (30.0-36.0); Mean Corpuscular Hemoglobin 29.3 pg (28.0-34.0); Mean Platelet Volume 9.5 fL (7.4-10.4); Monocytes % 12.3 %; Neutrophils # 4.62 10^3/uL (1.8-7.7); Neutrophils % 54.7 %; Nucleated Red Blood Cells % 0 %; Platelet Count 209 10^3/cmm (130-400); Red Cell Distribution Width 12.3 % (12.1-15.1); White Blood Count 8.4 10^3/uL (4.0-10.0)
[2022-10-18 05:15] LABS: Alanine Aminotransferase 9 U/L (0-41); Alkaline Phosphatase 44 U/L (40-130); Anion Gap 13.4 (5-19); Aspartate Amino Transferase 11 U/L (0-40); Blood Urea Nitrogen 10 mg/dL (8-23); Calcium 8.7 mg/dL (8.5-10.5); Carbon Dioxide 25 mmol/L (22-29); Chloride 105 mmol/L (98-107); Glucose 165 mg/dL (65-115); Osmolality Calculated 293 mOsm/kg (285-295); Potassium 3.4 mmol/L (3.5-5.1); Sodium 140 mmol/L (136-145); Total Bilirubin 0.3 mg/dL (0.15-1.2)
[2022-10-18 07:09] LABS: Glucose Point of Care 186 mg/dL (70-110)
[2022-10-18 07:09] LABS: Glucose Point of Care 177 mg/dL (70-110)
[2022-10-18 07:49] VITALS: BP 161/94; PULSE 71; RESP 16; TEMP 36.7; O2SAT 95
[2022-10-18 07:57] VITALS: RESP 17; O2SAT 90
[2022-10-18] MEDS: apixaban 5 mg Tablet PO (09:29)
[2022-10-18] MEDS: tamsulosin 0.4 mg Capsule PO (09:29)
[2022-10-18] MEDS: atenolol 50 mg Tablet 75 MG PO (09:29)
[2022-10-18] MEDS: aspirin 81 mg EC Tablet PO (09:29)
[2022-10-18] MEDS: pantoprazole DR 40 mg Tablet PO (09:30)
[2022-10-18] MEDS: HYDROcodone-acetaminophen 5-325 mg Tablet 1 TAB PO ×2 (09:32→15:35)
[2022-10-18] MEDS: ciprofloxacin 500 mg Tablet PO (09:33)
[2022-10-18] MEDS: metoprolol tartrate 25 mg Tablet 12.5 MG PO (09:33)
--- NOTE | 2022-10-18 09:46 | P.PN_ITS ---
Subjective Subjective: Urology follow-up: Overall continues to improve. Still having a lot of pain. Does have some pain with urination probably related to the stent and exacerbated by UTI. I discussed the findings of yesterday CT with the patient and his . I have recommended a ureteroscopy biopsy of left distal ureteral mass and we will tentatively plan on that 10/27/2022. He will need to stay on antibiotics through that. We will need to be off of his Eliquis for at least 48 hours We will request assistance from hospitalist for setting up a bridge protocol for Lovenox preop and consideration of risk for recurrent stroke per family's report Medications: Reviewed: Yes Vitals/I&O/Wt Last Vital Signs Temp 98.0 F 10/18/22 07:49 Pulse 71 10/18/22 07:49 Resp 16 10/18/22 07:49 BP 161/94 10/18/22 07:49 Pulse Ox 90 10/18/22 07:57 O2 Del Method 10/18/22 07:49 O2 Flow Rate 2 10/17/22 07:38 FiO2 28 10/18/22 07:57 10/17/22 10/18/22 10/18/22 22:59 06:59 14:59 Intake Total 600 / 840 480 / 1320 Output Total 925 / 925 Balance -325 / -85 480 / 395 Weight last 48 hrs Weight 344 lb 9.6 oz Physical Exam Narrative: Up in chair. No acute distress. Pleasant cooperative throughout exam Unlabored respiration Left-sided weakness. Urine is clear. No blood, catheter is functioning well. He is voiding. Urinary Catheter Management: Khoury: Cath Placed During This Visit: yes, but has since been removed by the nurse Reason for Continuing Indwelling Catheter: Acute Urinary Retention or Obstruction Urinary Catheter Date of Insertion: 10/15/22 Urinary Catheter Time of Insertion: 13:34 Date Urinary Catheter Removed: 10/17/22 Time Urinary Catheter Discontinued: 14:30 Data 10/18/22 04:30 10/18/22 04:30 Micro: Microbiology 10/14/22 23:37 Urine Culture - Final Urine,Clean Catch Escherichia coli A&P Assessment and plan (1) Hydronephrosis, left: CT scan yesterday confirmed what appeared to be a fairly large left distal ureteral mass with rather smooth appearance to it. Differential diagnosis would include TCCA of the left ureter versus fibroepithelial polyp versus I guess potentially a CT radiolucent stone There was decreased overall of the hydronephrosis status post stent placement. See HPI for plans related to ureteroscopy biopsy on 10/27/2022 (2) Sepsis: Clinically much improved (3) CVA (cerebral vascular accident): Chronic deficits (4) Complicated UTI (urinary tract infection): History of recurrent UTIs unclear etiology. Also reviewed with the patient and his family some strategies for potentially d ecreasing frequency of recurrent UTIs with focus on suppressive therapy and improving baseline voiding at that over time is apparently a contributing factor. On follow-up he will need some voiding studies to assess adequacy of voiding dynamics. We will check PVRs today. Can replace catheter and adequate emptying. (5) Atrial fibrillation: On chronic Eliquis. (6) Acute cystitis: Plan Recommendations: 1. Continue on oral antibiotics for at least 2 weeks in preparation of surgical intervention for ureteroscopy and ureteral mass biopsy on 10/27/2022. 2. Will probably need bridge therapy with Lovenox prior to the procedure. Attestations Medical Necessity Statement*: See attending Coding Level of Care Code Acute Code for Chg Fwd Diagnoses Hydronephrosis, left N13.30 Sepsis A41.9 CVA (cerebral vascular accident) I63.9 Complicated UTI (urinary tract infection) N39.0 Atrial fibrillation I48.91 Acute cystitis N30.00
--- NOTE | 2022-10-18 11:21 | PC.SOCIAL ---
IMM update IMM updated with patient. Verbalized an understanding. Copy Pg 2. Initialled, dated, timed, and placed in chart.
--- NOTE | 2022-10-18 11:39 | PM.DCS ---
Discharge Providers Date of Admission: 10/15/22 01:15 Date of Discharge: October 18, 2022 Attending Provider at Admission: Jake Perales Attending Provider at Discharge: Santos López MD Primary Care Provider: Kris King Diagnoses at Discharge Discharge Diagnosis (1) Hydronephrosis, left: Status: Acute (2) Sepsis: Status: Acute (3) CVA (cerebral vascular accident): Status: Acute (4) Complicated UTI (urinary tract infection): Status: Acute (5) Atrial fibrillation: Status: Acute (6) Acute cystitis: Status: Acute Reason for Visit Reason for Visit: [facility] Hospital Course Hospital Course 62-year-old gentleman with history of atrial fibrillation, on anticoagulation with Eliquis, initially came in with altered mental status likely secondary to sepsis secondary to complicated UTI.?Initial work-up for possible CVA, with CT head with noted chronic right posterior cerebral artery distribution encephalomalacia/infarct. Patient was continued on Eliquis, statin aspirin was added.During the hospital stay he was also managed for sepsis 2/2 complicated UTI?CT moderate to severe left hydronephrosis and hydroureter.apparent filling defect in the left distal ureter, possibly underlying mass or admixture of contrast. s/p?LEFT ureteral stent placement and left retrograde ureterogram. urine cx with E.?coli, kellogg, patient was kept on ciprofloxacin during the hospital stay, and was discharged on p.o. ciprofloxacin for 2 weeks, urology was on board Repeat CT abdomen and pelvis was done: Interval placement of left internal ureteral stent with stable dilatation of the left ureter terminating at the left ureterovesical junction etiology of which is unclear.Pronounced bladder wall thickening unchanged. Urology on board: They plan to do elective ureteroscopy with biopsy of the left distal ureteral mass, intent to do it on 10/27. Patient overall did well with current medical management, and was discharged home in hemodynamically stable condition. At the time of discharge patient was also given subacute Lovenox therapeutic 3 doses As a possible bridge to prevent stroke in the setting of A-fib, as the patient will need to hold Eliquis for 48 hours prior to the Procedure, patient has been asked to hold night dose of Lovenox, prior to the date of ureteroscopy with biopsy. Patient was discharged stable condition to home he will follow urology as outpatient. Physical Exam Const: COMMON NORMALS: patient oriented x3 HENMT: COMMON NORMALS: normocephalic and atraumatic HEAD & SCALP: normocephalic and atraumatic Resp: COMMON NORMALS: clear to auscultation bilaterally EFFORT & INSPECTION: Yes symmetric chest movement AUSCULTATION: clear to auscultation bilaterally Cardio: COMMON NORMALS: regular rate, regular rhythm, S1 normal heart sound present, S2 normal heart sound present, No gallops present (Cardio), No murmurs present (Cardio), No rub (Cardio) and Peripheral pulses 2+ throughout RATE: regular rate RHYTHM: regular rhythm HEART SOUNDS: S1 normal heart sound present and S2 normal heart sound present PERIPHERAL PULSES: Peripheral pulses 2+ throughout GI: COMMON NORMALS: Normal to inspection, nondistended, normoactive bowel sounds present, Soft to palpation, non-tender, No hepatosplenomegaly present and no masses AUSCULTATION: Yes normoactive bowel sounds PALPATION: Yes Soft to palpation and Yes No hepatosplenomegaly present RECTAL EXAM: Yes deferred Extremity: COMMON NORMALS: no clubbing, cyanosis or edema and no pedal edema Neuro: COMMON NORMALS: patient oriented x3 Urinary Catheter Management: Khoury: Cath Placed During This Visit: yes, but has since been removed by the nurse Reason for Continuing Indwelling Catheter: Acute Urinary Retention or Obstruction Urinary Catheter Date of Insertion: 10/15/22 Urinary Catheter Time of Insertion: 13:34 Date Urinary Catheter Removed: 10/17/22 Time Urinary Catheter Discontinued: 14:30 Discharge Data Studies Completed and Pending Completed Studies During Hospitalization Category Date Time Status CT abdomen pelvis wo con [id number] Stat Cat Scan 10/15/22 00:[address] abdomen pelvis wo/w [id number] Routine Cat Scan 10/17/22 12:[address] angio head neck [CT angio headneck* [id number]] Cat Scan 10/14/22 22:[address] head wo con* [id number] Stat Cat Scan 10/14/22 22:11 Completed XR chest 1V portable [id number] Stat Exams 10/14/22 22:11 Completed Pending at discharge Category Date Time Status C-arm Fluoroscopy [id number] Routine Exams 10/15/22 12:32 Ordered Blood Culture Stat Lab 10/15/22 05:18 Results Radiology Impressions Chest X-Ray 10/14/22 22:11 IMPRESSION: No acute findings. Head CT 10/14/22 22:11 IMPRESSION: 1. Negative for intracranial hemorrhage or mass effect. 2. Chronic right posterior cerebral artery distribution encephalomalacia/infarct. 3. Large amount of diffuse white matter disease likely reflecting chronic microvascular ischemic changes. 4. Paranasal sinus opacifications. ASSESSMENT: ASPECTS ([place] Stroke Program Early CT Score) is 10. Head/Neck CTA 10/14/22 22:11 IMPRESSION: No stenosis or occlusion of intracranial arteries. IMPRESSION: Limited examination due to extensive motion artifact. Evaluation of bilateral proximal internal carotid arteries is limited to assess for stenosis. REFERENCES: NASCET CRITERIA. The degree of stenosis in the cervical segment of the internal carotid artery is based on NASCET criteria. Normal is no stenosis. Mild is less than 50% stenosis. Moderate is 50-69% stenosis. Severe is 70% to 99% stenosis. Total occlusion is no detectable patent lumen. Abdomen/Pelvis CT 10/17/22 12:07 IMPRESSION: 1. Interval placement of left internal ureteral stent with stable dilatation of the left ureter terminating at the left ureterovesical junction etiology of which is unclear. 2. Pronounced bladder wall thickening unchanged. 3. Additional chronic findings as above. Laboratory Results WBC 8.4 10^3/uL (4.0-10.0) 10/18/22 04:30 RBC 4.00 10^6/uL (4.1-5.3) L 10/18/22 04:30 Hgb 11.7 g/dL (11.7-16.6) 10/18/22 04:30 Hct 36.4 % (42.0-52.0) L 10/18/22 04:30 MCV 91.0 fl (80-94) 10/18/22 04:30 MCH 29.3 pg (28.0-34.0) 10/18/22 04:30 MCHC 32.1 g/dL (30.0-36.0) 10/18/22 04:30 RDW 12.3 % (12.1-15.1) 10/18/22 04:30 Plt Count 209 10^3/cmm (130-400) 10/18/22 04:30 MPV 9.5 fL (7.4-10.4) 10/18/22 04:30 Neut % (Auto) 54.7 % 10/18/22 04:30 Lymph % (Auto) 28.0 % 10/18/22 04:30 [place] % (Auto) 12.3 % 10/18/22 04:30 Eos % (Auto) 3.7 % 10/18/22 04:30 Baso % (Auto) 1.1 % 10/18/22 04:30 Neut # (Auto) 4.62 10^3/uL (1.8-7.7) 10/18/22 04:30 Lymph # (Auto) 2.4 10^3/uL (0.8-4.8) 10/18/22 04:30 [place] # (Auto) 1.0 10^3/uL (0.2-0.9) H 10/18/22 04:30 Eos # (Auto) 0.3 10^3/uL (0.0-0.8) 10/18/22 04:30 Baso # (Auto) 0.1 10^3/uL (0.0-0.1) 10/18/22 04:30 Nucleated RBC % (auto) 0 % 10/18/22 04:30 Nucleated RBCs # 0.0 /100WBC 10/18/22 04:30 PT 14.90 SECONDS (12.1-14.9) 10/14/22 22:25 INR 1.14 (0.8-1.2) 10/14/22 22:25 Specimen Type Arterial 10/14/22 21:11 Sample Site Brachial, right 10/14/22 21:11 ABG pH 7.40 (7.35-7.45) 10/14/22 21:11 ABG pCO2 38.0 mmHg (35-45) 10/14/22 21:11 ABG pO2 72.0 mmHg (80.0-100.0) L 10/14/22 21:11 ABG HCO3 23.7 mmol/L (22-26) 10/14/22 21:11 ABG Base Excess -0.9 mmol/L (-2.0-2.0) 10/14/22 21:11 Liam Test N/a 10/14/22 21:11 Hematocrit 41.1 % (42-52) L 10/14/22 21:11 Hgb O2 Saturation 93.3 % (95-100) L 10/14/22 21:11 Carboxyhemoglobin 1.7 %THgb (0.4-20.1) 10/14/22 21:11 Methemoglobin 0.2 % (0.4-1.5) L 10/14/22 21:11 Total Hemoglobin 13.4 g/dL (14-18) L 10/14/22 21:11 O2 Delivery Device Nc 10/14/22 21:11 O2 Liters/Min 2.0 % 10/14/22 21:11 FiO2 28.0 % 10/14/22 21:11 Food Safety Technician ID [email or web address] 10/14/22 21:11 Sodium 140 mmol/L (136-145) 10/18/22 04:30 Potassium 3.4 mmol/L (3.5-5.1) L 10/18/22 04:30 Chloride 105 mmol/L (98-107) 10/18/22 04:30 Carbon Dioxide 25 mmol/L (22-29) 10/18/22 04:30 Anion Gap 13.4 (5-19) 10/18/22 04:30 BUN 10 mg/dL (8-23) 10/18/22 04:30 Creatinine 0.6 mg/dL (0.7-1.2) L 10/18/22 04:30 GFR Calculation Not Reportable 10/18/22 04:30 Glucose 165 mg/dL (65-115) H 10/18/22 04:30 POC Glucose 177 mg/dL (70-110) H 10/18/22 07:02 Estimat Average Glucose 128 10/16/22 05:51 Hemoglobin A1c 6.1 % (4.0-6.0) H 10/16/22 05:51 Calculated Osmolality 293 mOsm/kg (285-295) 10/18/22 04:30 Lactate 2.5 mmol/L (0.5-2.2) H 10/15/22 05:16 Calcium 8.7 mg/dL (8.5-10.5) 10/18/22 04:30 Magnesium 1.8 mg/dL (1.7-2.3) 10/15/22 05:18 Total Bilirubin 0.3 mg/dL (0.15-1.2) 10/18/22 04:30 AST 11 U/L (0-40) 10/18/22 04:30 ALT 9 U/L (0-41) 10/18/22 04:30 Alkaline Phosphatase 44 U/L (40-130) 10/18/22 04:30 Troponin T Baseline 30 ng/L (0-15) H 10/14/22 22:25 Troponin T 120 Minute 30.46 ng/L (0-15) H 10/15/22 01:41 Delta Troponin T 0.46 ABS# (0-10) 10/15/22 01:41 Troponin T Hi Sens 6Hr 28.53 ng/L (0-15) H 10/15/22 05:16 Troponin T Hi Sens 6Hr Delta -1.47 ng/L (0-12) L 10/15/22 05:16 NT-Pro-B Natriuret Pep 664 pg/mL (0-450) H 10/14/22 22:25 Total Protein 6.0 g/dL (6.6-8.7) L 10/18/22 04:30 Albumin 3.0 g/dL (3.5-5.2) L 10/18/22 04:30 Globulin 3.0 g/dL (1.3-4.6) 10/18/22 04:30 Lipase 17 U/L (13-60) 10/14/22 22:25 TSH 0.86 uIU/mL (0.27-4.20) 10/15/22 05:18 Urine Color Yellow (Yellow) 10/14/22 23:37 Urine Appearance Cloudy (CLEAR) A 10/14/22 23:37 Urine pH 6 (5-7) 10/14/22 23:37 Ur Specific [place] 1.010 (1.005-1.030) 10/14/22 23:37 Urine Protein 1+ (Negative) H 10/14/22 23:37 Urine Glucose (UA) Norm (Normal) 10/14/22 23:37 Urine Ketones 1+ (Negative) H 10/14/22 23:37 Urine Blood 2+ (Negative) H 10/14/22 23:37 Urine Nitrate Positive (Negative) H 10/14/22 23:37 Urine Bilirubin Neg (Negative) 10/14/22 23:37 Urine Urobilinogen 1 mg/dL (Negative) H 10/14/22 23:37 Ur Leukocyte Esterase 2+ (Negative) H 10/14/22 23:37 Urine RBC 0-4 /hpf (0-2) H 10/14/22 23:37 Urine WBC Too numerous to cnt /hpf (0-5) H 10/14/22 23:37 Ur Squamous Epith Cells 0-4 /hpf (0-5) H 10/14/22 23:37 Amorphous Sediment Not Reportable 10/14/22 23:37 Urine Bacteria 2+ /hpf (NONE) H 10/14/22 23:37 Influenza Type A Ag negative (Negative) 10/14/22 23:17 Influenza Type B Ag negative (Negative) 10/14/22 23:17 SARS-CoV-2 Ag (Rapid) negative (Negative) 10/14/22 23:17 Vitals Last Vital Signs Temp 98.0 F 10/18/22 07:49 Pulse 71 10/18/22 07:49 Resp 16 10/18/22 07:49 BP 161/94 10/18/22 07:49 Pulse Ox 90 10/18/22 07:57 O2 Del Method 10/18/22 07:49 O2 Flow Rate 2 10/17/22 07:38 FiO2 28 10/18/22 07:57 Discharge Plan Discharge Patient Disposition: Home Health Service Prescriptions: New hydrocodone-acetaminophen 5-325 mg Tablet 1 tab PO Q6H PRN (Reason: Moderate Pain) 14 Days Qty: 25 0RF ciprofloxacin HCl 500 mg Tablet 500 mg PO BID@0900,2100 14 Days Qty: 28 0RF aspirin 81 mg Tablet,Delayed Release (Dr/Ec) 81 mg PO DAILY 30 Days Qty: 30 3RF Lovenox 150 mg/mL syringe 150 mg SUBCUT Q12H 2 Days Qty: 3 0RF Rx Instructions: hold the overnight dose prior to the procedure day. Continued isosorbide mononitrate 20 mg Tablet 20 mg PO DAILY hydrocodone-acetaminophen 5-325 mg Tablet 1 - 2 tab PO DIRECTED PRN (Reason: Pain) enalapril maleate 20 mg Tablet 20 mg PO BID amlodipine 5 mg Tablet 2.5 mg PO BEDTIME Flomax 0.4 mg Capsule 0.4 mg PO DAILY baclofen 10 mg Tablet 10 mg PO BID PRN (Reason: muscle spasms) Protonix 40 mg Tablet,Delayed Release (Dr/Ec) 40 mg PO DAILY metformin 1,000 mg Tablet 1,000 mg PO BID atenolol 50 mg Tablet 75 mg PO DAILY glipizide 5 mg Tablet 5 mg PO BID rosuvastatin 5 mg Tablet 5 mg PO BEDTIME Lantus Solostar U-100 Insulin 100 unit/mL (3 mL) Insulin Pen 35 unit SUBCUT BEDTIME Eliquis 5 mg Tablet 5 mg PO BID Discharge Orders: Discharge Order (Routine); Ordered 10/18/22 Ordered By: Santos López Referrals: [facility] ([facility]) [Outside] Armin Sanchez MD [Physician] - 1 week (Rosalinda will call patient with appointment) Kris King [Primary Care Provider] - 10/26/22 9:45 am Patient Instructions: Ciprofloxacin (By mouth), Hydrocodone/Acetaminophen (By mouth), Aspirin (By mouth), Enoxaparin (By injection), Urinary Tract Infection in Men (GEN), Opioid Safety Discharge Attestations Time Spent in Discharge Care*: greater than 30 min Quality Metrics Clinical Quality Measures [ No reported AMI, CVA or VTE this stay] Coding Level of Care Code Acute Code for Chg Fwd Diagnoses Hydronephrosis, left N13.30 Sepsis A41.9 CVA (cerebral vascular accident) I63.9 Complicated UTI (urinary tract infection) N39.0 Atrial fibrillation I48.91 Acute cystitis N30.00
[2022-10-18] MEDS: ciprofloxacin 0.3% Op Soln 2.5 mL Btl 1 DROP EYE-LEFT ×2 (11:59→13:57)
[2022-10-18 12:00] VITALS: BP 162/95; PULSE 69; RESP 16; TEMP 36.3; O2SAT 91
[2022-10-18 14:05] LABS: Glucose Point of Care 220 mg/dL (70-110)
[2022-10-18 17:18] VITALS: BP 162/95; PULSE 69; RESP 16; TEMP 36.3; O2SAT 91
== END 2022-10-18 16:55 | disposition home health service (06) | DRG 853 ==
LOC: ER 10-15 01:20 → MEDSURG 10-15 01:53
PROVIDERS: Student in an Organized Health Care Education/Training Program; Urology; Admitting Provider Internal Medicine; Emergency Provider Emergency Medicine; PCP Family Medicine; Visit Provider Internal Medicine
PROC: 0T778DZ Dilation of Left Ureter with Intraluminal Device, Via Natural or Artificial Opening Endoscopic (ICD-10-PCS; CPT 50605; principal; 2022-10-15 11:30)
PROC: 0TJB8ZZ Inspection of Bladder, Via Natural or Artificial Opening Endoscopic (ICD-10-PCS; CPT 52000; 2022-10-15 11:30)
DX: A41.9 Sepsis, unspecified organism (principal); G93.41 Metabolic encephalopathy; E87.20 Acidosis, unspecified; N39.0 Urinary tract infection, site not specified; N13.1 Hydronephrosis with ureteral stricture, not elsewhere classified; Z68.42 Body mass index [BMI] 45.0-49.9, adult; I24.8 Other forms of acute ischemic heart disease; B96.20 Unspecified Escherichia coli [E. coli] as the cause of diseases classified elsewhere; I48.0 Paroxysmal atrial fibrillation; Z86.73 Personal history of transient ischemic attack (TIA), and cerebral infarction without residual deficits; Z79.891 Long term (current) use of opiate analgesic; Z79.84 Long term (current) use of oral hypoglycemic drugs; Z79.4 Long term (current) use of insulin; Z79.01 Long term (current) use of anticoagulants; E66.01 Morbid (severe) obesity due to excess calories; E11.9 Type 2 diabetes mellitus without complications; I10 Essential (primary) hypertension; G47.33 Obstructive sleep apnea (adult) (pediatric); Z99.89 Dependence on other enabling machines and devices; K59.00 Constipation, unspecified; K57.90 Diverticulosis of intestine, part unspecified, without perforation or abscess without bleeding; N28.9 Disorder of kidney and ureter, unspecified; K76.0 Fatty (change of) liver, not elsewhere classified; Z74.01 Bed confinement status; H10.9 Unspecified conjunctivitis; L30.4 Erythema intertrigo; M48.56XD Collapsed vertebra, not elsewhere classified, lumbar region, subsequent encounter for fracture with routine healing
CPT/HCPCS: 36415; 36416; 36600; 51702; 70450; 70496; 70498; 71045; 74176; 74178; 80048; 80053; 81001; 81003; 82805; 82962; 83036; 83605; 83690; 83735; 83880; 84443; 84484; 85025; 85610; 87040; 87077; 87086; 87186; 87426; 87804; 92610; 93005; 94664; 96365; 96372; 96375; 99285; C2625; J0131; J0330; J0696; J0744; J1100; J1815; J2250; J2270; J2405; J2704; J2710; J3010; J3490; J7030; Q9967

== ENCOUNTER 2022-10-27 05:45 | Day surgery (SDC) | payer MEDICARE, SELFPAY ==
[2022-10-26 14:26] VITALS: BMI 48.7
[2022-10-27] VITALS (9 sets, daily range): BP systolic 118–151; BP diastolic 71–98; PULSE 69–86; RESP 12–18; TEMP 36.1–36.6; O2SAT 92–98
--- NOTE | 2022-10-27 06:01 | SC_ITS ---
WS: [id number] EXAMINATION: C-arm FL for Urology REASON FOR EXAM: Left ureteroscopy/biopsy COMPARISON: None available. ORDER DATE: 10/27/2022 11:20 AM FINDINGS: Available C-arm views which there are 2 demonstrate the opacified slightly distended collecting syste m with a wire containing double-J ureteral stent initially min stent without the wire positioned in t he upper pole calyx. SC/C-arm FL for Urology IMPRESSION: Total fluoroscopy time 44.1 seconds
--- NOTE | 2022-10-27 06:35 | ANES.PREANE2 ---
Pre-Anesthetic Assessment Height/Weight: Height 1.78 m Weight 154.221 kg Temp Pulse Resp BP Pulse Ox O2 Del Method 97.9 F 86 18 151/86 96 10/27/22 06:25 10/27/22 06:25 10/27/22 06:25 10/27/22 06:25 10/27/22 06:25 10/27/22 06:25 Preop Diagnosis: Left ureteral mass with obstruction Operation Date: 10/27/22 07:00 Proposed Procedures p CYSTOSCOPY LEFT URETEROSCOPY, BIOPSY URETERAL MASS 36199,N13.30(Not Applicable) - Armin Sanchez MD s Ureteroscopy(Left) - Armin Sanchez MD s Excision Of Urethral Lesion(Not Applicable) - Armin Sanchez MD Familial anesthetic complications: None Was Beta Matilde taken within 24 hours: Yes Was Clonidine taken within 24 hours: N/A Last intake: Intake Last Liquid Date 10/26/22 Last Liquid Time 20:00 Last Solid Date 10/26/22 Last Solid Time 18:00 Social No alcohol and No tobacco Exam alert, oriented x 3, clear to auscultation bilaterally and regular rate & rhythm Airway Mallampati: Class IV Dentition: chipped Pulmonary Sleep Apnea CV/HEM Atrial Fibrillation and Hypertension Hepatic fatty liver GI Gastroesophageal Reflux Disease Metabolic Diabetes Mellitus and Morbid Obesity (super) Neuropsych Cerebrovascular Accident Anesthetic Plan ASA status: 4 Anesthesia: General Risk of > 500 ml blood loss (7ml/kg in children): No Medications/Allergies Home Medications Medication Instructions Recorded Confirmed Last Taken Type amlodipine 5 mg tablet 2.5 mg PO BEDTIME 10/15/22 10/26/22 10/26/22 History apixaban 5 mg tablet (Eliquis) 5 mg PO BID 10/15/22 10/26/22 10/24/22 History atenolol 50 mg tablet 75 mg PO DAILY 10/15/22 10/26/22 10/27/22 History baclofen 10 mg tablet 10 mg PO BID PRN muscle spasms 10/15/22 10/26/22 10/26/22 History enalapril maleate 20 mg tablet 20 mg PO BID 10/15/22 10/26/22 10/26/22 History glipizide 5 mg tablet 5 mg PO BID 10/15/22 10/26/22 10/26/22 09:00 History hydrocodone 5 mg-acetaminophen 325 1 - 2 tab PO DIRECTED PRN Pain 10/15/22 10/26/22 10/27/22 History mg tablet insulin glargine 100 unit/mL (3 35 unit SUBCUT BEDTIME 10/15/22 10/27/22 10/26/22 History mL) subcutaneous pen (Lantus 17 units Solostar U-100 Insulin) isosorbide mononitrate 20 mg tablet 20 mg PO DAILY 10/15/22 10/26/22 10/27/22 History metformin 1,000 mg tablet 1,000 mg PO BID 10/15/22 10/26/22 10/26/22 09:00 History pantoprazole 40 mg tablet,delayed 40 mg PO DAILY 10/15/22 10/26/22 10/27/22 History release (Protonix) rosuvastatin 5 mg tablet 5 mg PO BEDTIME 10/15/22 10/26/22 10/26/22 History tamsulosin 0.4 mg capsule (Flomax) 0.4 mg PO DAILY 10/15/22 10/26/22 10/26/22 History aspirin 81 mg tablet,delayed 81 mg PO DAILY 30 days #30 tabs 10/18/22 10/26/22 10/26/22 Rx release ciprofloxacin HCl 500 mg tablet 500 mg PO BID@0900,2100 14 days 10/18/22 10/26/22 10/26/22 Rx #28 tabs Allergies Allergy/AdvReac Type Severity Reaction Status Date / Time iodine Allergy ALGY-Rash Verified 10/26/22 14:19 [facility] Anesthesia Medical History Atrial fibrillation Bedbound CVA (cerebral vascular accident) Decubital ulcer DM type 2 (diabetes mellitus, type 2) Epididymitis HTN (hypertension) Intertrigo Obesity THIAGO (obstructive sleep apnea) Surgical History Hx of cataract surgery Hx of tonsillectomy Family History Other Cancer Social History Smoking and tobacco status: never smoked Alcohol intake: never Marital status: Data Anesthesia Cardiac Studies: No Data to Display
[2022-10-27] MEDS: sodium chloride 0.9% 1,000 ML 30 ML IV (06:40)
[2022-10-27 06:49] LABS: Glucose Point of Care 152 mg/dL (70-110)
[2022-10-27] MEDS: levofloxacin-dextrose 5 % 500 MG/100 ML PREMIX 100 MG IV (07:01)
--- NOTE | 2022-10-27 07:02 | P.HPUD_ITS ---
Surgery/Procedure H&P Update DATE OF PROCEDURE: October 27, 2022 DATE H&P PERFORMED: 10/15/22 H&P UPDATE INFORMATION: I have reviewed H&P completed within last 30 days, I have examined patient prior to procedure, Changes to prior documentation as noted here and H&P is in [facility] [place] EMR on date indicated CHANGES TO PREVIOUS DOCUMENTATION: Since initial consultation he has had a cystoscopy, retrograde, left ureteral stent placement on 10/15/2022. Follow-up CT scan showed persistence of what appeared to be a mass in the left distal ureter extending up close to the pelvic vessels. Decision was made after that CT scan to bring him back for ureteroscopy after his infection is cleared and consider biopsies etc. pending the findings of ureteroscopy. I had an extensive review of the rationale for this approach, examples of films from the CT, and expectations with the patient and his family today. They expressed good understanding and desire to proceed as scheduled PREOP DIAGNOSIS: Left ureteral mass with obstruction PLANNED PROCEDURE: Operation Date: 10/27/22 07:00 Proposed Procedures p CYSTOSCOPY LEFT URETEROSCOPY, BIOPSY URETERAL MASS 53593,N13.30(Not Applicable) - Armin Sanchez MD s Ureteroscopy(Left) - Armin Sanchez MD s Excision Of Urethral Lesion(Not Applicable) - Armin Sanchez MD
[2022-10-27] MEDS: iohexol 300 mg/mL 50 mL Btl (OR ONLY) XX (07:37)
[2022-10-27] MEDS: lidocaine 2% Urojet 20 mL TOPICAL (07:37)
--- NOTE | 2022-10-27 08:03 | P.OP_ITS ---
Operative Report Date of procedure: October 27, 2022 Pre-op diagnosis: Left ureteral mass with obstruction Post-op diagnosis: Left distal ureteral adynamic segment with dilation. No mass Procedure done: 1. Cystoscopy left ureteral stent removal and replacement 2. LEFT retrograde ureteropyelogram 3. Left ureteroscopy with dilation of ureteral stricture (adynamic segment) 4. Intraoperative fluoroscopy exclusive of radiology Implants: 7 Indonesian by 28 cm double-pigtail stent no string Specimens removed/disposition: None Pathology: None Surgeon: Laura Estimated blood loss: Minimal Urine output: Not measured Complications: None Findings: Anesthesia: General Condition: Stable Disposition: PACU Intraoperative findings: * Obstruction was caused from an adynamic segment of the distal ureter. Dilated to 18 Indonesian with balloon * No evidence of ureteral mass. CT scan findings now are interpreted as poorly mixed noncontrasted and contrasted ureter and a very widely dilated segment of the ureter above the ureteral stricture. * 7 Indonesian by 28 cm double-pigtail stent left indwelling with plans on removal in the office in approximately 1 to 2 weeks. * Brief History: Mr. Warren is a 77-year-old white male recently hospitalized for obstructive pyelonephritis. CT scan showed a hint of a left ureteral mass but could not be further characterized. He underwent emergency stent placement due to obstructive pyelonephritis with evidence of sepsis. A follow-up CT scan without and then with contrast was repeated post stent placement demonstrating what appeared to be persistence of a filling defect in the left distal ureter from just above the ureteral orifice up to about the pelvic vessel crossing. Was not papillary in appearance on the CT scan. UTI has been treated. He is back now for attempt at definitive therapy. His evening dose of Lovenox for bridge therapy was confirmed to have been held last night Procedure: After routine preoperative evaluation examination and obtaining of informed consent he was taken to the operating suite on 10/27/2022 where general anesthesia was administered without difficult after appropriate timeout was performed, SCDs confirmed to be functioning, preoperative antibiotics administered, beta-jason protocol confirmed.. Prepped and draped in the usual sterile fashion in dorsolithotomy position paying careful attention to avoiding pressure points. 21 Indonesian cystoscope with 30 degree lens was introduced to urethral meatus and advanced into the bladder without difficulty. Stent was grasped with grasping forceps and withdrawn to the urethral meatus and then a guidewire was p assed without difficulty up the stent and secured to the drapes as a safety wire. A 7 Indonesian offset semirigid ureteroscope was then advanced over the guidewire just into the distal ureter and the ureter was carefully inspected. Contrast was injected through the scope to perform a LEFT RETROGRADE URETEROPYELOGRAM demonstrating: The ureter showed as expected a very dilated component proximal to a very narrowed segment distally. Findings were consistent with a adynamic segment. I could not see any evidence of a filling defect with contrast injection The ureteroscope was then advanced through the distal narrowed segment into the dilated ureter and up into the proximal ureter well above any of the questionable findings on the CT scan. There was no intraluminal mass. It was very dilated though and I expect that that did allow the appearance of a mass most likely explained by incomplete mixing of noncontrasted with contrasted ureter on the CT scan. There is also a fairly floppy component of that dilated area which may have contributed to that impression Attention was then directed to the adynamic segment after the ureter was confirmed to be dilated but otherwise normal. A second guidewire was passed through the cystoscope and a 18 x 4 cm balloon dilator was used to dilate the distal ureteral stricture/adynamic segment with no waist remaining at 8 elaine of pressure. The balloon was left inflated for about 5 minutes and then deflated. The ureteroscope was repassed and the area appeared to be nicely dilated.. It was decided to leave a stent indwelling for further passive dilation of the ureter prior to removal. Cystoscope was then backloaded over the guidewire and a 7 Indonesian by 26 cm double-pigtail stent was advanced over the guidewire through the cystoscope into appropriate position as confirmed via fluoroscopy and cystoscopy. The bladder was drained and the procedure was completed. Stent was confirmed to be functioning well. He tolerated procedure well without complications and was awakened in the operating room and returned to PACU in stable condition. PLANS: 1. Anticipate discharge from outpatient surgery today 2. Follow-up in 2 weeks for cystoscopy and stent removal in the clinic. No x- rays required 3. He will need follow-up imaging studies to confirm no progression of obstructive changes over time.
[2022-10-27] MEDS: enoxaparin 150 mg/mL Syringe SUBCUT (08:30)
--- NOTE | 2022-10-27 13:11 | ANE.PACU2 ---
Inpatient post-anesthesia follow up: Airway intact: Yes Vital signs: Temperature 97 F Pulse Rate 69 Respiratory Rate 18 Blood Pressure 145/98 Pulse Oximetry 95 Oxygen Delivery Me thod Room Air Oxygen Flow Rate 6 Fraction of Inspir ed Oxygen Hydration adequate: Yes Nausea and vomiting: No Pain level: 1 Mental status: Baseline
== END 2022-10-27 09:20 | disposition home or self-care (01) ==
PROVIDERS: PCP Family Medicine; Visit Provider Urology
PROC: 0TJB8ZZ Inspection of Bladder, Via Natural or Artificial Opening Endoscopic (ICD-10-PCS; CPT 52000; principal; 2022-10-27 07:00)
PROC: 0TJ98ZZ Inspection of Ureter, Via Natural or Artificial Opening Endoscopic (ICD-10-PCS; CPT 52351; 2022-10-27 07:00)
PROC: (CPT 52332; 2022-10-27 07:00)
PROC: (CPT 74420; 2022-10-27 07:00)
DX: N13.30 Unspecified hydronephrosis (principal); I48.91 Unspecified atrial fibrillation; I10 Essential (primary) hypertension; K76.0 Fatty (change of) liver, not elsewhere classified; K21.9 Gastro-esophageal reflux disease without esophagitis; E11.9 Type 2 diabetes mellitus without complications; E66.01 Morbid (severe) obesity due to excess calories; Z68.42 Body mass index [BMI] 45.0-49.9, adult; Z86.73 Personal history of transient ischemic attack (TIA), and cerebral infarction without residual deficits; Z79.84 Long term (current) use of oral hypoglycemic drugs; Z79.4 Long term (current) use of insulin; Z79.891 Long term (current) use of opiate analgesic; Z79.82 Long term (current) use of aspirin; G47.33 Obstructive sleep apnea (adult) (pediatric)
CPT/HCPCS: 52332; 52344; 74420; 36416; 76000; 82962; J1100; J1650; J1956; J2370; J2405; J2704; J2710; J3010; J3490; J7030

== ENCOUNTER → 2022-11-11 14:18 | Outpatient (BNVA) | payer MEDICARE, SELFPAY | PROVIDERS: PCP Family Medicine; Visit Provider Urology | DX: Z96.0 Presence of urogenital implants (principal); N13.5 Crossing vessel and stricture of ureter without hydronephrosis; R33.9 Retention of urine, unspecified; N39.0 Urinary tract infection, site not specified; N13.30 Unspecified hydronephrosis | CPT/HCPCS: 52310; 81003; 99213 ==

== ENCOUNTER 2023-06-24 10:07 | Inpatient (IN) | payer MEDICARE, SELFPAY ==
[2023-06-24] VITALS (29 sets, daily range): BP systolic 122–144; BP diastolic 71–83; PULSE 83–106; RESP 15–20; TEMP 36.6–37.1; O2SAT 91–96; BMI 47.2; BMI 49.3
--- NOTE | 2023-06-24 10:18 | ECG_ITS ---
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 Measurements Intervals [place] Rate: 96 P: 0 SD: 0 QRS: 27 QRSD: 163 T: -6 QT: 364 QTc: 461 Interpretive Statements ATRIAL FIBRILLATION RIGHT BUNDLE BRANCH BLOCK [120+ ms QRS DURATION, UPRIGHT V1, 40+ ms S IN I/aVL/V4/V5/V6] Compared to ECG 10/15/2022 03:50:10 No significant changes Electronically Signed On 06-25-2023 6:05:25 VENEER CLIPPER HELPER by Gena Pratt M.D. [id number]
--- NOTE | 2023-06-24 10:18 | XR_ITS ---
WS: [id number] Portable AP semiupright chest, 06/24/2023 Clinical Data: dyspnea/cough Comparison: Portable chest, 10/14/2022 Findings: No nodules, masses or effusions are seen. The heart is normal. The pulmonary vascularity is not increased. No pneumonia or pneumothorax is seen. The aortic arch and descending thoracic aorta s how minimal calcification and tortuosity. Impression: Atherosclerosis.
[2023-06-24 10:35] LABS: Basophils # 0.1 10^3/uL (0.0-0.1); Basophils % 0.5 %; Eosinophils # 0.2 10^3/uL (0.0-0.8); Eosinophils % 0.8 %; Hematocrit 42.1 % (37-53); Lymphocytes # 2.6 10^3/uL (0.8-4.8); Lymphocytes % 13.7 %; Mean Corpuscular HGB Conc 32.3 g/dL (30-55); Mean Corpuscular Hemoglobin 30.6 pg (27-33); Mean Corpuscular Volume 94.8 fl (82-101); Mean Platelet Volume 9.7 fL (7.4-10.4); Monocytes # 2.2 10^3/uL (0.2-0.9); Monocytes % 11.6 %; Neutrophils # 13.96 10^3/uL (1.8-7.7); Neutrophils % 73.1 %; Nucleated Red Blood Cells % 0 %; Platelet Count 185 10^3/cmm (157-399); Red Blood Count 4.44 10^6/uL (3.85-5.65); Red Cell Distribution Width 12.4 % (12.1-15.1); White Blood Count 19.09 10^3/uL (3.29-11.43)
[2023-06-24 10:54] LABS: Troponin(5th) Baseline 37 ng/L (0-15)
[2023-06-24 10:56] LABS: Lactic Sepsis W/Reflex 2.9 mmol/L (0.5-2.2)
[2023-06-24 11:08] LABS: Alanine Aminotransferase 9 U/L (0-41); Albumin Level 3.9 g/dL (3.5-5.2); Alkaline Phosphatase 60 U/L (40-130); Anion Gap 17.9 (5-19); Aspartate Amino Transferase 11 U/L (0-40); Blood Urea Nitrogen 10 mg/dL (8-23); Calcium 9.4 mg/dL (8.5-10.5); Carbon Dioxide 24 mmol/L (22-29); Chloride 98 mmol/L (98-107); Globulin 2.4 g/dL (1.3-4.6); Glucose 177 mg/dL (65-115); Lipase 28 U/L (13-60); Osmolality Calculated 285 mOsm/kg (285-295); Potassium 3.9 mmol/L (3.5-5.1); Sodium 136 mmol/L (136-145); Total Bilirubin 0.5 mg/dL (0.15-1.2); Total Protein 6.3 g/dL (6.6-8.7)
[2023-06-24 11:14] LABS: Add Urine Microscopic? YES; Bilirubin Urine Neg (Negative); Blood Urine Neg (Negative); Glucose Urine UA Norm (Normal); Ketones Urine Negative (Negative); Leukocyte Esterase Urine Trace (Negative); Nitrate Urine Negative (Negative); Protein Urine Neg (Negative); Specific Gravity, Urine 1.005 (1.005-1.030); Urine Appearance Clear (CLEAR); Urine Color Yellow (Yellow); Urobilinogen Urine Norm (Negative); pH Urine 6.5 (5-7)
[2023-06-24 11:15] LABS: Add Urine Culture? No; Bacteria Urine TRACE /hpf; Mucus Urine TRACE /hpf; RBC Urine 0-4 /hpf (0-2); Squamous Epithelial Cell Urine 0-4 /hpf (0-5)
--- NOTE | 2023-06-24 11:53 | ED_ITS ---
HPI - Weakness 2 General: Chief complaint: Weakness Stated complaint: generalized weakness Time Seen by Provider: 06/24/23 10:15 Source: patient and family Mode of arrival: EMS History of Present Illness: 77-year-old male presents emergency room with cough and shortness of breath that started about 18 hours ago his diuretic and restless no abdominal discomfort. Family reports low-grade temp intermittently over the last couple hours and he arrives here he has not normal temp. He is diabetic. He is slightly confused states he usually has difficult time providing a lot of history and she will answer most of it. Patient has a known history of atrial fibrillation he is on Eliquis. He is also on insulin for his diabetes mellitus. He has a history of chronic cystitis as well MD Complaint: generalized weakness Associated symptoms: Denies chest pain, chills or fever(s) Review of Systems 2 Const: Denies: fever(s) or chills Card: Denies: chest pain Resp: Denies: dyspnea GI: Denies: abdominal pain : Denies: urinary frequency or urinary urgency Musc: Denies: neck pain or back pain Skin/Breast: Denies: rash PFSH ED 2 PFSH: Medical History (Updated 07/03/23 @ 15:46 by Jose Godinez DO) NSTEMI (non-ST elevated myocardial infarction) Bedbound Acute encephalopathy Sepsis CVA (cerebral vascular accident) Atrial fibrillation Hydronephrosis, left Secondary to adynamic distal ureteral site Ureteral obstruction, left Conjunctivitis of left eye Intertrigo Decubital ulcer 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 Chest pain Paroxysmal atrial fibrillation with RVR Hepatic steatosis Constipation Lumbar compression fracture Complicated UTI (urinary tract infection) Epididymitis THIAGO (obstructive sleep apnea) Obesity HTN (hypertension) DM type 2 (diabetes mellitus, type 2) Hydronephrosis Acute cystitis Altered mental status Surgical History S/P ureteral stent placement Hx of cataract surgery Hx of tonsillectomy Family History Mother Heart disease Father , AT AGE 78 Cancer LUNG Social History Smoking and tobacco/nicotine status: never used tobacco/nicotine Alcohol intake: never Substance/Drug Use: never Marital status: Physical Exam 2 Const: GENERAL APPEARANCE: cooperative and comfortable O RIENTATION/CONSCIOUSNESS: Yes awake HENMT: COMMON NORMALS: normocephalic and atraumatic HEAD & SCALP: n ormocephalic and atraumatic Resp: COMMON NORMALS: normal respiratory effort, No retractions and No use of accessory muscles AUSCULTATION: rhonchi Cardio: COMMON NORMALS: No murmurs present (Cardio) RATE: tachycardic R HYTHM: abnormal rhythm irregularly irregular GI: COMMON NORMALS: Soft to palpation and No hepatosplenomegaly present A USCULTATION: Yes normoactive bowel sounds PALPATION: Yes Soft to palpation, No Tenderness to palpation present (GI), No Guarding due to palpation present (GI) and Yes No hepatosplenomegaly present Extremity: COMMON NORMALS: normal to inspection, capillary refill normal, no clubbing, cyanosis or edema, no calf tenderness and no pedal edema Skin: OTHER: Decubitus ulcer -will stunningly tunneling lesions on the left buttock mild erythema and induration surrounding this Course 2 Vital Signs: Vital signs: Vital Signs Temperature 98.0 F 06/28/23 15:43 Pulse Rate 80 06/28/23 15:43 Respiratory Rate 19 H 06/28/23 15:43 Blood Pressure 129/69 06/28/23 15:43 Pulse Oximetry 94 06/28/23 15:43 Oxygen Delivery Me thod Room Air 06/28/23 11:25 Oxygen Flow Rate 2 06/24/23 13:37 MDM - Weakness Medical Decision Making Sepsis likely secondary to his decubiti ulcers. Antibiotic started discussed with hospitalist admit Medical Records I reviewed the patient's medical records. Lab Data I reviewed the patient's lab results. 06/28/23 05:46 06/28/23 05:[address] 06/24/23 16:05 IMPRESSION: 1. Minimal bibasilar atelectasis. Otherwise no evidence of acute pulmonary process. 2. Extensive coronary artery calcifications. Lumbar Spine CT 06/24/23 16:16 IMPRESSION: 1. Severe L4 compression deformity. Moderate to severe L5 compression deformity. 2. Degenerative changes as described. Please see above for specific findings at each level. Laboratory Results WBC 19.09 10^3/uL (3.29-11.43) H 12/01/23 10:26 RBC 4.44 10^6/uL (3.85-5.65) 06/24/23 10:26 Hgb 13.60 g/dL (11.27-16.99) 06/24/23 10:26 Hct 42.1 % (37-53) 06/24/23 10:26 MCV 94.8 fl (82-101) 06/24/23 10:26 MCH 30.6 pg (27-33) 06/24/23 10:26 MCHC 32.3 g/dL (30-55) 06/24/23 10:26 RDW 12.4 % (12.1-15.1) 06/24/23 10:26 Plt Count 185 10^3/cmm (157-399) 06/24/23 10:26 MPV 9.7 fL (7.4-10.4) 06/24/23 10:26 Neut % (Auto) 73.1 % 06/24/23 10:26 Lymph % (Auto) 13.7 % 06/24/23 10:26 Band[place] % (Auto) 11.6 % 06/24/23 10:26 Eos % (Auto) 0.8 % 06/24/23 10:26 Baso % (Auto) 0.5 % 06/24/23 10:26 Neut # (Auto) 13.96 10^3/uL (1.8-7.7) H 06/24/23 10:26 Lymph # (Auto) 2.6 10^3/uL (0.8-4.8) 06/24/23 10:26 [place] # (Auto) 2.2 10^3/uL (0.2-0.9) H 06/24/23 10:26 Eos # (Auto) 0.2 10^3/uL (0.0-0.8) 06/24/23 10:26 Baso # (Auto) 0.1 10^3/uL (0.0-0.1) 06/24/23 10:26 Nucleated RBC % (auto) 0 % 06/24/23 10:26 Nucleated RBCs # 0.0 /100WBC 06/24/23 10:26 ESR 32 mm/hr (0-10) H 06/24/23 10:26 Sodium 136 mmol/L (136-145) 06/24/23 10:26 Potassium 3.9 mmol/L (3.5-5.1) 06/24/23 10:26 Chloride 98 mmol/L (98-107) 06/24/23 10:26 Carbon Dioxide 24 mmol/L (22-29) 06/24/23 10:26 Anion Gap 17.9 (5-19) 06/24/23 10:26 BUN 10 mg/dL (8-23) 06/24/23 10:26 Creatinine 0.7 mg/dL (0.7-1.2) 06/24/23 10:26 GFR Calculation Not Reportable 06/24/23 10:26 Glucose 177 mg/dL (65-115) H 06/24/23 10:26 Estimat Average Glucose 143 06/24/23 10:26 Hemoglobin A1c 6.6 % (4.0-6.0) H 06/24/23 10:26 Calculated Osmolality 285 mOsm/kg (285-295) 06/24/23 10:26 Lactic Acid 2.9 mmol/L (0.5-2.2) H 06/24/23 10:26 Lactic Acid (Sepsis) 3.5 mmol/L (0.5-2.2) H 06/24/23 13:10 Calcium 9.4 mg/dL (8.5-10.5) 06/24/23 10:26 Total Bilirubin 0.5 mg/dL (0.15-1.2) 06/24/23 10:26 AST 11 U/L (0-40) 06/24/23 10:26 ALT 9 U/L (0-41) 06/24/23 10:26 Alkaline Phosphatase 60 U/L (40-130) 06/24/23 10:26 Troponin T Baseline 37 ng/L (0-15) H 06/24/23 10:26 Troponin T 120 Minute 33.69 ng/L (0-15) H 06/24/23 13:10 Delta Troponin T -3.31 ABS# (0-10) L 06/24/23 13:10 Total Protein 6.3 g/dL (6.6-8.7) L 06/24/23 10:26 Albumin 3.9 g/dL (3.5-5.2) 06/24/23 10:26 Globulin 2.4 g/dL (1.3-4.6) 06/24/23 10:26 Lipase 28 U/L (13-60) 06/24/23 10:26 Urine Color Yellow (Yellow) 06/24/23 10:45 Urine Appearance Clear (CLEAR) 06/24/23 10:45 Urine pH 6.5 (5-7) 06/24/23 10:45 Ur Specific Climax 1.005 (1.005-1.030) 06/24/23 10:45 Urine Protein Neg (Negative) 06/24/23 10:45 Urine Glucose (UA) Norm (Normal) 06/24/23 10:45 Urine Ketones Negative (Negative) 06/24/23 10:45 Urine Blood Neg (Negative) 06/24/23 10:45 Urine Nitrate Negative (Negative) 06/24/23 10:45 Urine Bilirubin Neg (Negative) 06/24/23 10:45 Urine Urobilinogen Norm mg/dL (Negative) 06/24/23 10:45 Ur Leukocyte Esterase Trace (Negative) H 06/24/23 10:45 Urine RBC 0-4 /hpf (0-2) H 06/24/23 10:45 Urine WBC 5-10 /hpf (0-5) H 06/24/23 10:45 Ur Squamous Epith Cells 0-4 /hpf (0-5) H 06/24/23 10:45 Amorphous Sediment Not Reportable 06/24/23 10:45 Urine Bacteria Trace /hpf (NONE) 06/24/23 10:45 Urine Mucus Trace /hpf 06/24/23 10:45 Nasal Influ A H1 2008 PCR Not detected (NOT DETECT) 06/24/23 12:41 Adenovirus (PCR) Not detected (NOT DETECT) 06/24/23 12:41 C. pneumoniae DNA (PCR) Not detected (NOT DETECT) 06/24/23 12:41 Coronavirus 229E (PCR) Not detected (NOT DETECT) 06/24/23 12:41 Human Metapneumovir PCR Not detected (NOT DETECT) 06/24/23 12:41 Influenza A (H1) PCR Not detected (NOT DETECT) 06/24/23 12:41 Influenza A (H3) PCR Not detected (NOT DETECT) 06/24/23 12:41 Influenza Type A Ag negative (Negative) 06/24/23 12:41 Influenza Type A (PCR) Not detected (NOT DETECT) 06/24/23 12:41 Influenza Type B Ag negative (Negative) 06/24/23 12:41 Influenza Type B (PCR) Not detected (NOT DETECT) 06/24/23 12:41 M. pneumoniae (PCR) Not detected (NOT DETECT) 06/24/23 12:41 Parainfluenza 1 (PCR) Not detected (NOT DETECT) 06/24/23 12:41 Parainfluenza 2 (PCR) Not detected (NOT DETECT) 06/24/23 12:41 Parainfluenza 3 (PCR) Not detected (NOT DETECT) 06/24/23 12:41 Parainfluenza 4 (PCR) Not detected (NOT DETECT) 06/24/23 12:41 RSV Type A (PCR) Not detected (NOT DETECT) 06/24/23 12:41 RSV Type B (PCR) Not detected (NOT DETECT) 06/24/23 12:41 Entero/Rhino (PCR) Not detected (NOT DETECT) 06/24/23 12:41 SARS-CoV-2 (PCR) Not detected (NOT DETECT) 06/24/23 12:41 All radiology interpretation(s) finalized by discharge Discharge Plan Discharge Patient Disposition: Admitted As Inpatient Admit Provider: Hema Mayfield Clinical Impression: CVA (cerebral vascular accident), Bedbound, Decubital ulcer, Recurrent urinary tract infection, Sepsis Condition: Stable Discharge Diet: Cardiac Discharge Activity: Resume usual activity Coding Level of Care Code 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
--- NOTE | 2023-06-24 11:54 | CT_ITS ---
WS: [id number] CT ABDOMEN PELVIS TECHNIQUE: Noncontrast CT of the abdomen and pelvis with coronal and sagittal reformatted images. CLINICAL INFORMATION: Abdominal pain COMPARISON: 10/17/2022 DLP: 2371.[address] scans at [facility] use at least one of these dose optimization techniques: automated e xposure control; mA and/or kV adjustment per patient size (includes targeted exams where dose is matc hed to clinical indication); or iterative reconstruction. FINDINGS: Images degraded due to beam hardening artifact from arms at side and respiratory artifact Tortuous air distended sigmoid colon similar to the prior examination of 10/17/2022. No evidence of hi gh-grade obstruction or herniated bowel. Rectus diastases with ectatic ventral abdominal wall Noncontrast liver is normal. Normal noncontrast spleen. Tiny esophageal hiatal hernia. Noncontrast pa ncreas is normal. Adrenal glands are normal. No hydronephrosis in either kidney. Normal caliber abdominal aorta. Aortic calcification. Rectal constipation. No evidence of high-grade small or large bowel obstruction. No free fluid in the abdomen or pelvis. Chronic compression fractu res lumbar spine L4 and L5 appear unchanged. IMPRESSION: 1. Tortuous air distended sigmoid colon similar to the prior examination of 10/17/2022. No evidence o f high-grade obstruction or herniated bowel. 2. No hydronephrosis in either kidney. Removal of the previously described LEFT ureteral stent. 3. No other acute findings considering limitations.
[2023-06-24 12:17] LABS: Reflex Lactate Order REFLEX LACTIC ORDERD
--- NOTE | 2023-06-24 12:25 | ECG_ITS ---
[facility] Test Date: 2023-06-24 Pat Name: Richard Warren Department: Room: Gender: Male Nurses Director: : 1945 Requested By: Jose Kelly Order Number: [id number] Anjali MD: Gena Pratt M.D. Measurements Intervals [place] Rate: 90 P: 0 UT: 0 QRS: 24 QRSD: 154 T: -9 QT: 394 QTc: 484 Interpretive Statements ATRIAL FIBRILLATION RIGHT BUNDLE BRANCH BLOCK [120+ ms QRS DURATION, UPRIGHT V1, 40+ ms S IN I/aVL/V4/V5/V6] Compared to ECG 06/24/2023 10:23:32 No significant changes Electronically Signed On 06-25-2023 6:13:31 ONLINE TRADER by Gena Pratt M.D. [id number]
[2023-06-24 13:10] LABS: Influenza A by IFA negative (Negative); Influenza B by IFA negative (Negative)
[2023-06-24] MEDS: levofloxacin-dextrose 5 % 750 MG/150 ML PREMIX 100 MG IV (13:23)
[2023-06-24 14:03] LABS: Troponin 5 2HR 33.69 ng/L (0-15)
[2023-06-24 14:05] LABS: Lactic Acid level (Lactate) 3.5 mmol/L (0.5-2.2)
[2023-06-24 14:07] LABS: Troponin 5 2HR Delta -3.31 ABS# (0-10)
[2023-06-24 14:36] LABS: Coronavirus 229E,HKU1,NL63,OC4 Not Detected (NOT DETECT); SARS-COV-2 Not Detected (NOT DETECT)
--- NOTE | 2023-06-24 16:05 | CTR_ITS ---
PROCEDURE INFORMATION: Exam: CT Chest Without Contrast; Diagnostic Exam date and time: 06/25/2023 3:03 AM Age: 77 years old Clinical indication: Shortness of breath; Patient HX: SOB with wbc of 20k. TECHNIQUE: Imaging protocol: Diagnostic computed tomography of the chest without contrast. Radiation optimization: All CT scans at this facility use at least one of these dose optimization techniques: automated exposure control; mA and/or kV adjustment per patient size (includes targeted exams where dose is matched to clinical indication); or iterative reconstruction. REPORTING DATA: Count of CT and Cardiac NM exams in prior 12 months: This patient has received 5 known CTs and 0 known cardiac nuclear medicine studies in the 12 months prior to the current study. COMPARISON: CR XR chest 1V portable [id number] 06/24/2023 10:32 AM RADIATION DOSE METRICS: Total DLP (mGy-cm): 1383.64 FINDINGS: Lungs: There is minimal bibasilar atelectasis. Pleural spaces: Unremarkable. No pneumothorax. No pleural effusion. Heart: Unremarkable. No cardiomegaly. No pericardial effusion. Coronary arteries: Extensive coronary artery calcifications are identified. Lymph nodes: Calcified mediastinal right hilar nodes are identified suggesting prior granulomatous disease. Vasculature: Unremarkable. No aortic aneurysm. Bones/joints: There appears to be an old sternal fracture. There is osteopenia present. Soft tissues: Unremarkable. CT/CT chest con [id number] IMPRESSION: 1. Minimal bibasilar atelectasis. Otherwise no evidence of acute pulmonary process. 2. Extensive coronary artery calcifications.
--- NOTE | 2023-06-24 16:10 | P.HP_ITS ---
Providers/Chief Complaint 2 Admitting Physician: Hema Mayfield MD Primary Care Provider: Kris King Chief Complaint: generalized weakness History of Present Illness Richard Warren is a 77 year old male with a past medical history of atrial fibrillation on Eliquis therapy, history of hypertension, sleep apnea, morbid obesity, history of a stroke with residual left-sided deficits, left hand flexion contracture, left lower extremity weakness, history of UTI, history of ureteral stent placement on the left, who presents to [facility] due to generalized weakness, increased confusion, cough. Currently patient alert to person, not to place, not to time he can follow commands, he can answer basic yes or no questions, but frequently right requires redirection, is encephalopathic, at bedside helps with history taking. Patient is bedbound for the last year or so, he tells me he is walked a few months ago but his family denies this, family tells me has been more weak, fatigued, tired, increasingly confused, no nausea, no vomiting. He does report a cough, nonproductive, no sick contacts, recent travel, no known exposure to COVID-19 or the flu. Denies any dysuria, no hematuria. No abdominal pain. No chest pain. He does have a sacral decubitus ulcer, which nursing staff in the emergency room found, family is a bit stunned that he has this. No nausea, no diarrhea, no reported abdominal pain, he does report subjective fevers and chills, fatigue, malaise Review of Systems 2 Const: Reports: fever(s), chills, fatigue and malaise Card: Denies: chest pain Resp: Reports: non-productive cough; Denies: dyspnea GI: Denies: abdominal pain : Denies: flank pain Musc: Denies: back pain Neuro: Denies: headache(s) Endo: Denies: polyuria Medications/Allergies Home Medications Medication Instructions Recorded Confirmed Last Taken Type amlodipine 5 mg tablet 2.5 mg PO BEDTIME 10/15/22 06/24/23 06/23/23 History apixaban 5 mg tablet (Eliquis) 5 mg PO BID 10/15/22 06/24/23 06/24/23 History atenolol 50 mg tablet 75 mg PO DAILY 10/15/22 06/24/23 06/24/23 History baclofen 10 mg tablet 10 mg PO BID PRN muscle spasms 10/15/22 06/24/23 10/26/22 History enalapril maleate 20 mg tablet 20 mg PO BID 10/15/22 06/24/23 06/24/23 History glipizide 5 mg tablet 5 mg PO BID 10/15/22 06/24/23 06/24/23 History hydrocodone 5 mg-acetaminophen 325 1 - 2 tab PO DIRECTED PRN Pain 10/15/22 06/24/23 10/27/22 History mg tablet insulin glargine 100 unit/mL (3 35 unit SUBCUT BEDTIME 10/15/22 06/24/23 06/23/23 History mL) subcutaneous pen (Lantus Solostar U-100 Insulin) isosorbide mononitrate 20 mg tablet 20 mg PO DAILY 10/15/22 06/24/23 06/24/23 History metformin 1,000 mg tablet 1,000 mg PO BID 10/15/22 06/24/23 06/24/23 History pantoprazole 40 mg tablet,delayed 40 mg PO DAILY 10/15/22 06/24/23 06/24/23 History release (Protonix) rosuvastatin 5 mg tablet 5 mg PO BEDTIME 10/15/22 06/24/23 06/23/23 History tamsulosin 0.4 mg capsule 0.4 mg PO BIDWMEAL #60 caps 10/27/22 06/24/23 06/24/23 Rx methenamine hippurate 1 gram tablet 1 g PO BID Recurrent UTI #60 tabs 11/11/22 06/24/23 06/24/23 Rx ascorbic acid (vitamin C) 1,000 mg 500 mg PO BID 06/24/23 06/24/23 06/24/23 History tablet (Vitamin C) clotrimazole 1 % topical cream See Rx Instructions .Route .COMPLEX 06/24/23 06/24/23 Unknown History hydroxyzine HCl 25 mg tablet 25 mg PO TID PRN INSOMSNIA OR 06/24/23 06/24/23 Unknown History ITCHING nystatin 100,000 unit/gram topical 1 applic topical BID 06/24/23 06/24/23 Unknown History cream Allergies Allergy/AdvReac Type Severity Reaction Status Date / Time iodine Allergy ALGY-Rash Verified 06/24/23 10:19 PFSH Acute 2 PFSH: Medical History (Updated 06/24/23 @ 16:16 by Hema Mayfield MD) NSTEMI (non-ST elevated myocardial infarction) Bedbound Acute encephalopathy Sepsis CVA (cerebral vascular accident) Atrial fibrillation Hydronephrosis, left Secondary to adynamic distal ureteral site Ureteral obstruction, left Conjunctivitis of left eye Intertrigo Decubital ulcer 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 Chest pain Paroxysmal atrial fibrillation with RVR Hepatic steatosis Constipation Lumbar compression fracture Complicated UTI (urinary tract infection) Epididymitis THIAGO (obstructive sleep apnea) Obesity HTN (hypertension) DM type 2 (diabetes mellitus, type 2) Hydronephrosis Acute cystitis Altered mental status Surgical History S/P ureteral stent placement Hx of cataract surgery Hx of tonsillectomy Family History Mother Heart disease Father , AT AGE 78 Cancer LUNG Social History Smoking and tobacco/nicotine status: never used tobacco/nicotine Alcohol intake: never Substance/Drug Use: never Marital status: Vitals/I&O/Wt Last Vital Signs Temp 98.7 F 06/24/23 13:28 Pulse 90 06/24/23 13:37 Resp 18 06/24/23 10:16 BP 130/73 06/24/23 14:00 Pulse Ox 95 06/24/23 14:05 O2 Del Method Aerosol Mask 06/24/23 13:37 O2 Flow Rate 2 06/24/23 13:37 Weight last 48 hrs Weight 145.15 kg Physical Exam 2 Const: COMMON NORMALS: no acute distress EXAM LIMITATIONS: altered mental status ORIENTATION/CONSCIOUSNESS: Yes awake, Yes oriented to person and Yes confused; not oriented to place and not oriented to time HENMT: COMMON NORMALS: normocephalic HEAD & SCALP: normocephalic Eye: COMMON NORMALS: Equal, round and reactive pupils present and EOMs intact bilaterally Neck/C-Spine: COMMON NORMALS: no JVD Lymph: LYMPHATIC: no lymphadenopathy noted Chest: COMMONS NORMALS: normal inspection of the chest Resp: COMMON NORMALS: normal respiratory effort, No retractions, No use of accessory muscles and clear to auscultation bilaterally AUSCULTATION: clear to auscultation bilaterally Cardio: COMMON NORMALS: regular rate, regular rhythm, S1 normal heart sound present and S2 normal heart sound present RATE: regular rate RHYTHM: r egular rhythm HEART SOUNDS: S1 normal heart sound present and S2 normal heart sound present GI: COMMON NORMALS: Normal to inspection, nondistended, normoactive bowel sounds present, Soft to palpation and non-tender : COMMON NORMALS: Yes no CVA tenderness Extremity: COMMON NORMALS: no pedal edema Neuro: COMMON NORMALS: CN's II-XII intact bilaterally OTHER: Left hand flexion contracture, with weakness, left lower extremity weakness Data 06/24/23 10:26 06/24/23 10:26 A&P Assessment and plan (1) Acute encephalopathy: (2) Sepsis: (3) Elevated lactic acid level: (4) Bedbound: (5) Decubital ulcer: (6) THIAGO (obstructive sleep apnea): (7) Obesity: (8) NSTEMI (non-ST elevated myocardial infarction): (9) Atrial fibrillation: (10) CVA (cerebral vascular accident): (11) DM type 2 (diabetes mellitus, type 2): Plan Acute encephalopathy, ? Likely secondary to sepsis, respiratory tract infection versus sacral decubitus ulcer, ? Neurochecks, ? Aspiration precautions, ? On a stroke scale Respiratory tract infection and/or possible pneumonia ? Complains of cough, hypoxic in the emergency room requiring 2 L, ? Sputum cultures ? Blood cultures, ? Respiratory viral panel, ? ABG, ? CT of the chest, Sacral decubitus ulcer ? I was unable to see the sacral deceived as well as repeat is morbidly obese once turned I will take a look at it ? We will order CRP, Pro-Pepe, sed rate ? CT lumbar spine ? Broad-spectrum antibiotic therapy for with vancomycin, Zosyn NSTEMI No chest pain complaints, ? Type I versus type II, serial EKGs, troponins can monitor monitoring Atrial fibrillation, continue Eliquis, will hold off on rate control medications as blood pressures are a bit soft, Elevated lactic acid, likely secondary to respiratory tract infection and/or sacral disturbance ulcer, sepsis, Sepsis as above, History of CVA, with residual left upper left lower extremity weakness, Type 2 diabetes mellitus, low-dose sliding scale, Full code ? Eliquis for DVT prophylaxis Attestations 2 Medical Necessity Statement*: Patient requires hospitalization, inpatient, greater than 2 midnights, for acute encephalopathy, sepsis, pneumonia, sacral decubitus ulcer, NSTEMI Diagnoses Acute encephalopathy G93.40 Sepsis A41.9 Elevated lactic acid level R79.89 Bedbound Z74.01 Decubital ulcer L89.90 THIAGO (obstructive sleep apnea) G47.33 Obesity E66.9 NSTEMI (non-ST elevated myocardial infarction) I21.4 Atrial fibrillation I48.91 CVA (cerebral vascular accident) I63.9 DM type 2 (diabetes mellitus, type 2) E11.9
--- NOTE | 2023-06-24 16:16 | CTR_ITS ---
PROCEDURE INFORMATION: Exam: CT Lumbar Spine Without Contrast Exam date and time: 06/25/2023 3:06 AM Age: 77 years old Clinical indication: Patient HX: Sacral ulcer with wbc of 20k and elevated lactic acid. ; Additional info: Sacral ulcer, sepsis TECHNIQUE: Imaging protocol: Computed tomography of the lumbar spine without contrast. Radiation optimization: All CT scans at this facility use at least one of these dose optimization techniques: automated exposure control; mA and/or kV adjustment per patient size (includes targeted exams where dose is matched to clinical indication); or iterative reconstruction. REPORTING DATA: Count of CT and Cardiac NM exams in prior 12 months: This patient has received 5 known CTs and 0 known cardiac nuclear medicine studies in the 12 months prior to the current study. COMPARISON: CT abdomen pelvis wo con [id number] 06/24/2023 12:15 PM RADIATION DOSE METRICS: Total DLP (mGy-cm): 1639.68 FINDINGS: Bones/joints: There is diffuse osteopenia. There is a severe L4 compression deformity and a moderate to severe L5 compression deformity. L1-L2: No significant disc bulge or herniation. No severe spinal canal stenosis. No significant neural foraminal narrowing. L2-L3: There is a small to moderate-sized central disc protrusion which effaces the anterior thecal sac. There is hmtc-rc-uebwiela spinal canal stenosis. The neural foramina appear patent. L3-L4: There is orkv-tb-qpfoyojl spinal canal stenosis secondary to central disc bulging and ligamentum flavum/facet hypertrophy. There is nnhd-uv-qyojgwmd bilateral neural foraminal stenosis. L4-L5: There is fkqm-hh-cokkobvv spinal canal stenosis secondary to central disc bulging and ligamentum flavum/facet hypertrophy. There is npgl-mp-bchfcnqh bilateral neural foraminal stenosis. L5-S1: There is twnt-oj-pmmqpkku spinal canal stenosis secondary to diffuse disc bulging which effaces the anterior thecal sac. There is loht-ok-cvxotoyn bilateral neural foraminal stenosis. Soft tissues: Nonspecific infiltrative changes are seen in the subcutaneous fat overlying the right posterior abdominal/pelvic wall. No discrete collections are identified. CT/CT lumbar spine wo con* [id number] IMPRESSION: 1. Severe L4 compression deformity. Moderate to severe L5 compression deformity. 2. Degenerative changes as described. Please see above for specific findings at each level.
[2023-06-24 16:32] LABS: Estmated Average Glucose 143; Hemoglobin A1C 6.6 % (4.0-6.0)
[2023-06-24 16:35] LABS: Erythrocyte Sedimentation Rate 32 mm/hr (0-10)
[2023-06-24 16:45] LABS: ABG PCO2 37.8 mmHg (35-45); ABG PH Result 7.43 (7.35-7.45); Arterial Blood Gas Hematocrit 44.2 % (42-52); Base Excess ABG 1.1 mmol/L (-2.0-2.0); Blood Gas Sample Site Brachial, right; Blood Gas Sample Type Arterial; HCO3 ABG 25.2 mmol/L (22-26); Oxygen Device ROOM AIR; PO2 ABG 80.6 mmHg (80.0-100.0)
[2023-06-24] MEDS: sodium chloride 0.9% 1,000 ML 100 ML IV (17:13)
[2023-06-24] MEDS: piperacillin-tazobactam 3.375 GM in sodium chloride 0.9% (plus) 50 ML IV (17:13)
[2023-06-24] MEDS: apixaban 5 mg Tablet PO (17:14)
[2023-06-24] MEDS: pantoprazole 40 mg SDV IVP (17:14)
--- NOTE | 2023-06-24 17:41 | ECG_ITS ---
[facility] Test Date: 2023-06-24 Pat Name: Richard Warren Department: Room: 276 Gender: Male Unix Manager: : 1945 Requested By: Jose Kelly Order Number: [id number] Anjali MD: Gena Pratt M.D. Measurements Intervals [place] Rate: 88 P: 0 GA: 0 QRS: 17 QRSD: 146 T: 1 QT: 361 QTc: 437 Interpretive Statements ATRIAL FIBRILLATION RIGHT BUNDLE BRANCH BLOCK [120+ ms QRS DURATION, UPRIGHT V1, 40+ ms S IN I/aVL/V4/V5/V6] Compared to ECG 06/24/2023 12:25:55 No significant changes Electronically Signed On 06-25-2023 6:09:41 HAIRSPRING INSPECTOR by Gena Pratt M.D. [id number]
[2023-06-24 18:03] LABS: Glucose Point of Care 119 mg/dL (70-110)
[2023-06-24 18:36] LABS: Lactic Sepsis W/Reflex 3.2 mmol/L (0.5-2.2)
[2023-06-24] MEDS: vancomycin 1,500 MG/300 ML PIGGYBACK 200 MG IV (18:36)
[2023-06-24] MEDS: acetaminophen 325 mg Tablet 650 MG PO (18:36)
[2023-06-24 18:37] LABS: Troponin 5 6HR 34.58 ng/L (0-15)
[2023-06-24 18:38] LABS: Troponin 5 6HR Delta -2.42 ng/L (0-12)
[2023-06-24 18:48] LABS: NT Pro B Type Natriuretic Pept 598 pg/mL (0-450); Procalcitonin 0.02 ng/mL (0-0.5); Thyroid Stimulating Hormone 2.14 uIU/mL (0.27-4.20)
[2023-06-24 18:59] LABS: C Reactive Protein 110.2 mg/L (0.0-4.9); Chol HDL Ratio 2.59 mg/dL (1.0-5.00); Cholesterol 106 mg/dL (0-200); HDL Cholesterol 41 mg/dL (60-100); LDL Cholesterol Calculated 52 mg/dL (50-129); LDL HDL Ratio 1.27 RATIO (0.00-3.22); Triglycerides 66 mg/dL (0-150)
--- NOTE | 2023-06-24 19:30 | PC.NURSE ---
sacrum I was given in report from ER and Dr Mayfield that pt had a pressure ulcer the size of your fist but Kj CHUN and I just saw redness stage I area between buttock/sacrum area.
[2023-06-24 19:57] LABS: Reflex Lactate Order REFLEX LACTIC ORDERD
[2023-06-24 20:43] LABS: Glucose Point of Care 153 mg/dL (70-110)
[2023-06-24] MEDS: atorvastatin 40 mg Tablet 20 MG PO (21:04)
[2023-06-24 21:24] LABS: Lactic Acid level (Lactate) 3.2 mmol/L (0.5-2.2)
[2023-06-25] VITALS (13 sets, daily range): BP systolic 139–157; BP diastolic 76–98; PULSE 92–105; RESP 14–19; TEMP 36.4–36.9; O2SAT 92–95
[2023-06-25] MEDS: vancomycin 1,500 MG/300 ML PIGGYBACK 200 MG IV ×3 (01:45→18:42)
[2023-06-25 02:03] LABS: Adenovirus Not Detected (NOT DETECT); Mycoplasma Pneumoniae Not Detected (NOT DETECT)
[2023-06-25 02:04] LABS: Chlamydia Pneumoniae Not Detected (NOT DETECT); Human Metapneumovirus Not Detected (NOT DETECT); Human Rhinovirus/Enterovirus Not Detected (NOT DETECT); Influenza A Not Detected (NOT DETECT); Influenza A H1 Not Detected (NOT DETECT); Influenza A H1-2009 Not Detected (NOT DETECT); Influenza A H3 Not Detected (NOT DETECT); Influenza B Not Detected (NOT DETECT); Parainfluenza Virus Type 1 Not Detected (NOT DETECT); Parainfluenza Virus Type 2 Not Detected (NOT DETECT); Parainfluenza Virus Type 3 Not Detected (NOT DETECT); Parainfluenza Virus Type 4 Not Detected (NOT DETECT); Respiratory Syncytial Virus A Not Detected (NOT DETECT); Respiratory Syncytial Virus B Not Detected (NOT DETECT)
[2023-06-25] MEDS: piperacillin-tazobactam 3.375 GM in sodium chloride 0.9% (plus) 50 ML IV ×3 (03:49→17:19)
[2023-06-25] MEDS: morphine 4 mg/mL SDV 1 mL 2 MG IVP ×2 (03:49→10:57)
[2023-06-25 05:46] LABS: Basophils # 0.1 10^3/uL (0.0-0.1); Basophils % 0.4 %; Eosinophils # 0.2 10^3/uL (0.0-0.8); Eosinophils % 1.3 %; Hematocrit 38.7 % (37-53); Lymphocytes # 2.9 10^3/uL (0.8-4.8); Lymphocytes % 18.5 %; Mean Corpuscular HGB Conc 33.1 g/dL (30-55); Mean Corpuscular Hemoglobin 30.5 pg (27-33); Mean Corpuscular Volume 92.4 fl (82-101); Mean Platelet Volume 9.5 fL (7.4-10.4); Monocytes # 1.7 10^3/uL (0.2-0.9); Monocytes % 10.8 %; Neutrophils # 10.74 10^3/uL (1.8-7.7); Neutrophils % 68.6 %; Nucleated Red Blood Cells % 0 %; Platelet Count 162 10^3/cmm (157-399); Red Blood Count 4.19 10^6/uL (3.85-5.65); Red Cell Distribution Width 12.6 % (12.1-15.1); White Blood Count 15.69 10^3/uL (3.29-11.43)
[2023-06-25] MEDS: sodium chloride 0.9% 1,000 ML 100 ML IV ×2 (06:11→17:20)
[2023-06-25 06:21] LABS: Alanine Aminotransferase 8 U/L (0-41); Albumin Level 3.7 g/dL (3.5-5.2); Alkaline Phosphatase 60 U/L (40-130); Anion Gap 15.2 (5-19); Aspartate Amino Transferase 12 U/L (0-40); Blood Urea Nitrogen 10 mg/dL (8-23); Calcium 9.1 mg/dL (8.5-10.5); Carbon Dioxide 25 mmol/L (22-29); Chloride 100 mmol/L (98-107); Globulin 3.1 g/dL (1.3-4.6); Glucose 230 mg/dL (65-115); Magnesium 1.9 mg/dL (1.7-2.3); Osmolality Calculated 288 mOsm/kg (285-295); Phosphorus 2.9 mg/dL (2.5-4.5); Potassium 4.2 mmol/L (3.5-5.1); Sodium 136 mmol/L (136-145); Total Bilirubin 0.6 mg/dL (0.15-1.2); Total Protein 6.8 g/dL (6.6-8.7)
[2023-06-25 06:32] LABS: Glucose Point of Care 185 mg/dL (70-110)
[2023-06-25] MEDS: insulin lispro 100 unit/1 mL SUBCUT ×2 (09:00→12:29)
[2023-06-25] MEDS: apixaban 5 mg Tablet PO ×2 (09:00→17:19)
[2023-06-25 11:25] LABS: Glucose Point of Care 255 mg/dL (70-110)
[2023-06-25] MEDS: HYDROmorphone 1 mg/mL INJ 1 mL IVP (11:53)
--- NOTE | 2023-06-25 14:14 | P.PN_ITS ---
Subjective 2 Subjective: Patient was examined this morning,, with family members at bedside, ? Early this morning patient is much more alert and awake, follows all commands, complaining of severe low back pain, bilateral hip pain, ? With his history of stroke, he is bedbound, ? With the help of nursing staff we were able to rotate patient's take a look at his sacral decubitus ulcer, stage 2, with dusky appearance, round, measuring 4 x 4 cm, no fluctuance, ? I advised family that we will going to have to monitor this very closely this sacral decubitus ulcer, with surrounding cellulitis, is likely a culprit behind his sepsis, his leukocytosis, in addition to his pneumonia ? I am worried that the sacral decubitus ulcer will spread like wildfire and Tunnel -There is high risk of morbidity and mor tality once the sacral decubitus ulcer started in start to spread and Tylenol, ? We can have to do aggressive wound care, repositioning every 2 hours, ? We will have to try to keep him off of it, offloading ? Nursing staff were at bedside, during this discussion, he is in severe pain, with minimal motion, we will try to optimize his pain medication switch him to Dilaudid, Vitals/I&O/Wt Last Vital Signs Temp 98.4 F 06/25/23 11:26 Pulse 92 06/25/23 11:26 Resp 18 06/25/23 11:53 BP 139/87 06/25/23 11:26 Pulse Ox 94 06/25/23 11:53 O2 Del Method Room Air 06/25/23 11:26 O2 Flow Rate 2 06/24/23 13:37 06/24/23 06/25/23 06/25/23 22:59 06:59 14:59 Intake Total 475.208 / 909.898 2486.792 / 5155.746 7821 / 1010 Output Total 200 / 200 400 / 400 Balance 275.208 / 977.644 5261.792 / 1600.000 610 / 610 Weight last 48 hrs Weight 150.848 kg Weight 158.667 kg Weight 145.15 kg Physical Exam 2 Const: COMMON NORMALS: no acute distress and patient oriented x3 Resp: COMMON NORMALS: normal respiratory effort, No retractions, No use of accessory muscles and clear to auscultation bilaterally AUSCULTATION: clear to auscultation bilaterally Cardio: COMMON NORMALS: regular rate, regular rhythm, S1 normal heart sound present and S2 normal heart sound present RATE: regular rate RHYTHM: r egular rhythm HEART SOUNDS: S1 normal heart sound present and S2 normal heart sound present GI: COMMON NORMALS: Normal to inspection, nondistended, normoactive bowel sounds present and non-tender Extremity: COMMON NORMALS: no pedal edema Neuro: COMMON NORMALS: patient oriented x3 Psych: COMMON NORMALS: mental status grossly normal Data 06/25/23 05:32 06/25/23 05:32 Micro: Microbiology 06/24/23 18:03 Blood Culture - Preliminary Blood SPECIMEN COLLECTED 06/24/23 17:57 Blood Culture - Preliminary Blood SPECIMEN COLLECTED A&P Assessment and plan (1) Acute encephalopathy: (2) Sepsis: (3) Elevated lactic acid level: (4) Bedbound: (5) Decubital ulcer: (6) THIAGO (obstructive sleep apnea): (7) Obesity: (8) NSTEMI (non-ST elevated myocardial infarction): (9) Atrial fibrillation: (10) CVA (cerebral vascular accident): (11) DM type 2 (diabetes mellitus, type 2): Plan Acute encephalopathy, resolving ? Likely secondary to sepsis, respiratory tract infection and sacral decubitus ulcer, ? Neurochecks, ? Aspiration precautions, ? On a stroke scale Respiratory tract infection and/or possible pneumonia ? Complains of cough, hypoxic in the emergency room requiring 2 L, ? Sputum cultures ? Blood cultures, ? Respiratory viral panel, negative ? CT of the chest, bibasilar atelectasis Sacral decubitus ulcer ? Stage II sacral decubitus ulcer, roughly 4 x 4 cm, dark, dusky in appearance ? Reposition every 2 hours ? VHI320.2, Pro-Pepe 0.02, sed rate 32 ? CT lumbar spine ? Broad-spectrum antibiotic therapy for with vancomycin, Zosyn Severe back pain CT/CT lumbar spine wo con* [id number] IMPRESSION: 1. Severe L4 compression deformity. Moderate to severe L5 compression deformity. 2. Degenerative changes as described. Please see above for specific findings at each level. ? Dilaudid 1 mg IV push every 4 hours as needed for pain NSTEMI No chest pain complaints, ? Type I versus type II, serial EKGs, troponins can monitor monitoring Atrial fibrillation, continue Eliquis, coutinue to monitor Elevated lactic acid, likely secondary to respiratory tract infection and/or sacral disturbance ulcer, sepsis, Sepsis as above, History of CVA, with residual left upper left lower extremity weakness, Type 2 diabetes mellitus, low-dose sliding scale, Full code ? Eliquis for DVT prophylaxis Attestations 2 Medical Necessity Statement*: Patient requires hospitalization for sickle disorders ulcer, respiratory tract infection, pneumonia, sepsis, Diagnoses Acute encephalopathy G93.40 Sepsis A41.9 Elevated lactic acid level R79.89 Bedbound Z74.01 Decubital ulcer L89.90 THIAGO (obstructive sleep apnea) G47.33 Obesity E66.9 NSTEMI (non-ST elevated myocardial infarction) I21.4 Atrial fibrillation I48.91 CVA (cerebral vascular accident) I63.9 DM type 2 (diabetes mellitus, type 2) E11.9
[2023-06-25 17:00] LABS: Glucose Point of Care 191 mg/dL (70-110)
[2023-06-25] MEDS: tamsulosin 0.4 mg Capsule PO (17:19)
[2023-06-25] MEDS: lisinopril 20 mg Tablet 40 MG PO (17:19)
[2023-06-25 18:21] LABS: Vancomycin Trough 16.2 ug/mL (10-15)
[2023-06-25] MEDS: pantoprazole 40 mg SDV IVP (19:01)
[2023-06-25] MEDS: atorvastatin 40 mg Tablet 20 MG PO (20:25)
[2023-06-25] MEDS: amlodipine 5 mg Tablet 2.5 MG PO (20:26)
[2023-06-25 20:30] LABS: Glucose Point of Care 167 mg/dL (70-110)
[2023-06-26] VITALS (8 sets, daily range): BP systolic 121–150; BP diastolic 69–91; PULSE 78–97; RESP 14–22; TEMP 36.4–37.1; O2SAT 91–98
[2023-06-26] MEDS: piperacillin-tazobactam 3.375 GM in sodium chloride 0.9% (plus) 50 ML IV ×3 (00:37→16:06)
[2023-06-26] MEDS: acetaminophen 325 mg Tablet 650 MG PO ×2 (00:39→09:31)
[2023-06-26] MEDS: baclofen 10 mg Tablet PO ×3 (00:39→20:31)
[2023-06-26] MEDS: vancomycin 1,500 MG/300 ML PIGGYBACK 200 MG IV ×3 (02:59→17:00)
[2023-06-26] MEDS: sodium chloride 0.9% 1,000 ML 100 ML IV ×2 (04:41→16:19)
[2023-06-26 04:48] LABS: Basophils # 0.1 10^3/uL (0.0-0.1); Basophils % 0.4 %; Eosinophils # 0.4 10^3/uL (0.0-0.8); Eosinophils % 3.3 %; Lymphocytes # 2.4 10^3/uL (0.8-4.8); Lymphocytes % 21.2 %; Mean Corpuscular HGB Conc 32.3 g/dL (30-55); Mean Corpuscular Hemoglobin 29.9 pg (27-33); Mean Corpuscular Volume 92.6 fl (82-101); Mean Platelet Volume 9.5 fL (7.4-10.4); Monocytes # 1.1 10^3/uL (0.2-0.9); Monocytes % 10.1 %; Neutrophils # 7.28 10^3/uL (1.8-7.7); Neutrophils % 64.6 %; Nucleated Red Blood Cells % 0 %; Platelet Count 181 10^3/cmm (157-399); Red Blood Count 4.21 10^6/uL (3.85-5.65); Red Cell Distribution Width 12.5 % (12.1-15.1); White Blood Count 11.27 10^3/uL (3.29-11.43)
[2023-06-26 05:11] LABS: Alanine Aminotransferase 7 U/L (0-41); Albumin Level 3.2 g/dL (3.5-5.2); Alkaline Phosphatase 53 U/L (40-130); Anion Gap 16.8 (5-19); Aspartate Amino Transferase 8 U/L (0-40); Blood Urea Nitrogen 10 mg/dL (8-23); C Reactive Protein 120.7 mg/L (0.0-4.9); Calcium 8.7 mg/dL (8.5-10.5); Carbon Dioxide 22 mmol/L (22-29); Chloride 102 mmol/L (98-107); Globulin 3.2 g/dL (1.3-4.6); Glucose 214 mg/dL (65-115); Magnesium 1.8 mg/dL (1.7-2.3); Osmolality Calculated 289 mOsm/kg (285-295); Phosphorus 2.6 mg/dL (2.5-4.5); Potassium 3.8 mmol/L (3.5-5.1); Sodium 137 mmol/L (136-145); Total Bilirubin 0.7 mg/dL (0.15-1.2); Total Protein 6.4 g/dL (6.6-8.7)
[2023-06-26 05:17] LABS: Procalcitonin 0.04 ng/mL (0-0.5)
[2023-06-26 06:24] LABS: Glucose Point of Care 208 mg/dL (70-110)
[2023-06-26] MEDS: insulin lispro 100 unit/1 mL SUBCUT ×3 (08:04→17:12)
[2023-06-26] MEDS: tamsulosin 0.4 mg Capsule PO ×2 (08:06→17:11)
[2023-06-26] MEDS: lisinopril 20 mg Tablet 40 MG PO ×2 (08:06→17:12)
[2023-06-26] MEDS: atenolol 50 mg Tablet 75 MG PO (08:07)
[2023-06-26] MEDS: isosorbide mononitrate 20 mg Tablet PO (08:13)
[2023-06-26] MEDS: apixaban 5 mg Tablet PO ×2 (09:31→17:12)
[2023-06-26 11:22] LABS: Glucose Point of Care 277 mg/dL (70-110)
[2023-06-26] MEDS: HYDROcodone-acetaminophen 5-325 mg Tablet 1 TAB PO ×3 (12:40→20:31)
--- NOTE | 2023-06-26 14:45 | PM.PN ---
Subjective Subjective: Patient was seen this morning, denies any fevers overnight is alert oriented x3, following all commands, does report low back pain, is concerned as he received Dilaudid yesterday and he slept throughout most of the afternoon, will transition to p.o. hydrocodone, Vitals/I&O/Wt Last Vital Signs Temp 97.9 F 06/26/23 11:35 Pulse 89 06/26/23 11:35 Resp 19 H 06/26/23 11:35 BP 145/78 06/26/23 11:35 Pulse Ox 98 06/26/23 11:35 O2 Del Method Nasal Cannula 06/26/23 11:35 O2 Flow Rate 2 06/24/23 13:37 06/25/23 06/26/23 06/26/23 22:59 06:59 14:59 Intake Total 1917.5 / 3277.5 1562.5 / 4840.0 1000 / 1000 Output Total 1725 / 2125 500 / 2625 Balance 192.5 / 1152.5 1062.5 / 2215.0 1000 / 1000 Weight last 48 hrs Weight 153.796 kg Weight 150.848 kg Weight 158.667 kg Physical Exam Const: COMMON NORMALS: no acute distress and patient oriented x3 Resp: COMMON NORMALS: normal respiratory effort, No retractions, No use of accessory muscles and clear to auscultation bilaterally AUSCULTATION: clear to auscultation bilaterally Cardio: COMMON NORMALS: regular rate, regular rhythm, S1 normal heart sound present and S2 normal heart sound present RATE: regular rate RHYTHM: regular rhythm HEART SOUNDS: S1 normal heart sound present and S2 normal heart sound present GI: COMMON NORMALS: Normal to inspection, nondistended, normoactive bowel sounds present and non-tender Extremity: COMMON NORMALS: no pedal edema Neuro: COMMON NORMALS: patient oriented x3 Psych: COMMON NORMALS: mental status grossly normal Urinary Catheter Management: Khoury: Cath Placed During This Visit: yes Reason for Continuing Indwelling Catheter: Other Urinary Catheter Date of Insertion: 06/25/23 Urinary Catheter Time of Insertion: 11:00 Data 06/26/23 04:35 06/26/23 04:35 Micro: Microbiology 06/26/23 07:30 Gram Stain - Final Sputum - Expectorated Sputum 06/24/23 18:03 Blood Culture - Preliminary Blood NEGATIVE TO DATE 06/24/23 17:57 Blood Culture - Preliminary Blood NEGATIVE TO DATE A&P Assessment and plan (1) Acute encephalopathy: (2) Sepsis: (3) Elevated lactic acid level: (4) Bedbound: (5) Decubital ulcer: (6) THIAGO (obstructive sleep apnea): (7) Obesity: (8) NSTEMI (non-ST elevated myocardial infarction): (9) Atrial fibrillation: (10) CVA (cerebral vascular accident): (11) DM type 2 (diabetes mellitus, type 2): Plan Acute encephalopathy, resolving ? Likely secondary to sepsis, respiratory tract infection and sacral decubitus ulcer, ? Neurochecks, ? Aspiration precautions, ? On a stroke scale Respiratory tract infection and/or possible pneumonia ? Complains of cough, hypoxic in the emergency room requiring 2 L, ? Sputum cultures ? Blood cultures, ? Respiratory viral panel, negative ? CT of the chest, bibasilar atelectasis Sacral decubitus ulcer ? Stage II sacral decubitus ulcer, roughly 4 x 4 cm, dark, dusky in appearance ? Reposition every 2 hours ? SJA021.2, Pro-Pepe 0.02, sed rate 32 ? CT lumbar spine ? Broad-spectrum antibiotic therapy for with vancomycin, Zosyn Morbid obesity, with sacral decubitus ulcer, continue repositioning every 2 hours[facility] of CVA, left upper extremity flexion contracture, left lower extremity weakness, chronic Severe back pain CT/CT lumbar spine wo con* [id number] IMPRESSION: 1. Severe L4 compression deformity. Moderate to severe L5 compression deformity. 2. Degenerative changes as described. Please see above for specific findings at each level. ? Dilaudid 1 mg IV push every 4 hours as needed for pain NSTEMI No chest pain complaints, ? Type I versus type II, serial EKGs, troponins can monitor monitoring Atrial fibrillation, continue Eliquis, coutinue to monitor Elevated lactic acid, likely secondary to respiratory tract infection and/or sacral disturbance ulcer, sepsis, Sepsis as above, History of CVA, with residual left upper left lower extremity weakness, Type 2 diabetes mellitus, low-dose sliding scale, Full code ? Eliquis for DVT prophylaxis Attestations Medical Necessity Statement*: Patient requires hospitalization for severe back pain, history of CVA, secondary status ulcer, pneumonia, encephalopathy, Diagnoses Acute encephalopathy G93.40 Sepsis A41.9 Elevated lactic acid level R79.89 Bedbound Z74.01 Decubital ulcer L89.90 THIAGO (obstructive sleep apnea) G47.33 Obesity E66.9 NSTEMI (non-ST elevated myocardial infarction) I21.4 Atrial fibrillation I48.91 CVA (cerebral vascular accident) I63.9 DM type 2 (diabetes mellitus, type 2) E11.9
[2023-06-26] MEDS: nystatin powder 15 gm Btl 1 APPLIC TOPICAL (16:12)
[2023-06-26 16:48] LABS: Glucose Point of Care 255 mg/dL (70-110)
[2023-06-26 18:14] LABS: Protein Urine 1+ (Negative); Urine Appearance Bloody (CLEAR); Urine Color Red (Yellow); pH Urine 5 (5-7)
[2023-06-26 18:15] LABS: Add Urine Culture? Yes; Add Urine Microscopic? YES; Bacteria Urine 1+ /hpf; Bilirubin Urine Neg (Negative); Blood Urine 3+ (Negative); Glucose Urine UA 1+ (Normal); Ketones Urine Negative (Negative); Leukocyte Esterase Urine 1+ (Negative); Nitrate Urine Negative (Negative); RBC Urine TOO NUMEROUS TO CNT /hpf (0-2); Urobilinogen Urine 4 mg/dL (Negative)
[2023-06-26] MEDS: pantoprazole 40 mg SDV IVP (20:02)
[2023-06-26 20:19] LABS: Glucose Point of Care 252 mg/dL (70-110)
[2023-06-26] MEDS: atorvastatin 40 mg Tablet 20 MG PO (20:30)
[2023-06-26] MEDS: amlodipine 5 mg Tablet 2.5 MG PO (20:30)
[2023-06-26] MEDS: sodium chloride 0.9% 1,000 ML 50 ML IV (21:23)
[2023-06-27] VITALS (9 sets, daily range): BP systolic 115–158; BP diastolic 70–88; PULSE 68–95; RESP 14–20; TEMP 36.3–37.2; O2SAT 92–95
[2023-06-27] MEDS: HYDROmorphone 1 mg/mL INJ 1 mL IVP (00:17)
[2023-06-27] MEDS: piperacillin-tazobactam 3.375 GM in sodium chloride 0.9% (plus) 50 ML IV ×3 (00:45→21:36)
[2023-06-27] MEDS: vancomycin 1,500 MG/300 ML PIGGYBACK 200 MG IV ×3 (02:56→18:50)
[2023-06-27] MEDS: HYDROcodone-acetaminophen 5-325 mg Tablet 1 TAB PO ×4 (02:57→21:37)
[2023-06-27 04:54] LABS: Basophils # 0.1 10^3/uL (0.0-0.1); Basophils % 0.7 %; Eosinophils # 0.5 10^3/uL (0.0-0.8); Eosinophils % 4.7 %; Hematocrit 38.8 % (37-53); Lymphocytes # 2.8 10^3/uL (0.8-4.8); Lymphocytes % 27.9 %; Mean Corpuscular HGB Conc 32.5 g/dL (30-55); Mean Corpuscular Hemoglobin 30.3 pg (27-33); Mean Corpuscular Volume 93.3 fl (82-101); Mean Platelet Volume 9.5 fL (7.4-10.4); Monocytes % 10.1 %; Neutrophils # 5.57 10^3/uL (1.8-7.7); Neutrophils % 56.3 %; Nucleated Red Blood Cells % 0 %; Platelet Count 199 10^3/cmm (157-399); Red Blood Count 4.16 10^6/uL (3.85-5.65); Red Cell Distribution Width 12.4 % (12.1-15.1); White Blood Count 9.89 10^3/uL (3.29-11.43)
[2023-06-27 05:25] LABS: Procalcitonin 0.03 ng/mL (0-0.5)
[2023-06-27 05:26] LABS: C Reactive Protein 64.6 mg/L (0.0-4.9); Lactate (Lactic Acid level) 1.2 mmol/L (0.5-2.2)
[2023-06-27 05:28] LABS: Alanine Aminotransferase 7 U/L (0-41); Albumin Level 3.1 g/dL (3.5-5.2); Alkaline Phosphatase 59 U/L (40-130); Anion Gap 16.2 (5-19); Aspartate Amino Transferase 18 U/L (0-40); Blood Urea Nitrogen 11 mg/dL (8-23); Calcium 8.4 mg/dL (8.5-10.5); Carbon Dioxide 21 mmol/L (22-29); Chloride 102 mmol/L (98-107); Glucose 284 mg/dL (65-115); Magnesium 1.9 mg/dL (1.7-2.3); Osmolality Calculated 290 mOsm/kg (285-295); Phosphorus 2.6 mg/dL (2.5-4.5); Potassium 4.2 mmol/L (3.5-5.1); Sodium 135 mmol/L (136-145); Total Bilirubin 0.4 mg/dL (0.15-1.2); Total Protein 6.1 g/dL (6.6-8.7)
[2023-06-27 07:00] LABS: Glucose Point of Care 263 mg/dL (70-110)
--- NOTE | 2023-06-27 08:17 | US_ITS ---
WS: [id number] ULTRASOUND RENAL TECHNIQUE: Ultrasound examination of both kidneys. CLINICAL INFORMATION: hematuria COMPARISON: None. FINDINGS: Kidneys are not adequately visualized due to body habitus. Nondiagnostic examination. IMPRESSION: Nondiagnostic examination due to body habitus
[2023-06-27] MEDS: docusate sodium 100 mg Capsule PO ×3 (08:59→18:49)
[2023-06-27] MEDS: isosorbide mononitrate 20 mg Tablet PO (08:59)
[2023-06-27] MEDS: apixaban 5 mg Tablet PO ×2 (08:59→18:49)
[2023-06-27] MEDS: lisinopril 20 mg Tablet 40 MG PO ×2 (08:59→18:49)
[2023-06-27] MEDS: tamsulosin 0.4 mg Capsule PO ×2 (08:59→18:49)
[2023-06-27] MEDS: atenolol 50 mg Tablet 75 MG PO (08:59)
[2023-06-27] MEDS: insulin lispro 100 unit/1 mL SUBCUT ×3 (09:00→18:50)
[2023-06-27] MEDS: polyethylene glycol 3350 Pkt 17 gm PO ×2 (09:00→09:01)
[2023-06-27] MEDS: nystatin powder 15 gm Btl 1 APPLIC TOPICAL ×2 (09:01→18:49)
[2023-06-27 11:15] LABS: Glucose Point of Care 284 mg/dL (70-110)
--- NOTE | 2023-06-27 13:49 | PC.SOCIAL ---
IMM Update pg 2 of IMM updated and reviewed w/ patient. Copy provided and copy dated, initialed and placed in chart.
--- NOTE | 2023-06-27 14:01 | P.PN_ITS ---
Subjective 2 Subjective: Patient was seen this morning, he did episode of hematuria overnight, currently clear urine Vitals/I&O/Wt Last Vital Signs Temp 97.6 F 06/27/23 12:36 Pulse 77 06/27/23 12:36 Resp 18 06/27/23 12:36 BP 115/70 06/27/23 12:36 Pulse Ox 95 06/27/23 12:36 O2 Del Method Room Air 06/27/23 12:36 O2 Flow Rate 2 06/24/23 13:37 06/26/23 06/27/23 06/27/23 22:59 06:59 14:59 Intake Total 1270.000 / 3620.000 350 / 3970.000 802.5 / 802.5 Output Total 500 / 1200 700 / 700 Balance 770.000 / 2420.000 350 / 2770.000 102.5 / 102.5 Weight last 48 hrs Weight 153.796 kg Physical Exam 2 Const: COMMON NORMALS: no acute distress and patient oriented x3 Resp: COMMON NORMALS: normal respiratory effort, No retractions, No use of accessory muscles and clear to auscultation bilaterally AUSCULTATION: clear to auscultation bilaterally Cardio: COMMON NORMALS: regular rate, regular rhythm, S1 normal heart sound present and S2 normal heart sound present RATE: regular rate RHYTHM: r egular rhythm HEART SOUNDS: S1 normal heart sound present and S2 normal heart sound present GI: COMMON NORMALS: Normal to inspection, nondistended, normoactive bowel sounds present and non-tender Extremity: COMMON NORMALS: no pedal edema Neuro: COMMON NORMALS: patient oriented x3 Urinary Catheter Management: Khoury: Cath Placed During This Visit: yes Reason for Continuing Indwelling Catheter: Other Urinary Catheter Date of Insertion: 06/25/23 Urinary Catheter Time of Insertion: 11:00 Data 06/27/23 04:38 06/27/23 04:38 Micro: Microbiology 06/26/23 07:30 Gram Stain - Final Sputum - Expectorated Sputum Sputum Culture - Preliminary A&P Assessment and plan (1) Acute encephalopathy: (2) Sepsis: (3) Elevated lactic acid level: (4) Bedbound: (5) Decubital ulcer: (6) THIAGO (obstructive sleep apnea): (7) Obesity: (8) NSTEMI (non-ST elevated myocardial infarction): (9) Atrial fibrillation: (10) CVA (cerebral vascular accident): (11) DM type 2 (diabetes mellitus, type 2): Plan Acute encephalopathy, resolving ? Likely secondary to sepsis, respiratory tract infection and sacral decubitus ulcer, ? Neurochecks, ? Aspiration precautions, ? On a stroke scale Respiratory tract infection and/or possible pneumonia ? Complains of cough, hypoxic in the emergency room requiring 2 L, ? Sputum cultures ? Blood cultures, ? Respiratory viral panel, negative ? CT of the chest, bibasilar atelectasis Sacral decubitus ulcer ? Stage II sacral decubitus ulcer, roughly 4 x 4 cm, dark, dusky in appearance ? Reposition every 2 hours ? WRX409.2, Pro-Pepe 0.02, sed rate 32 ? CT lumbar spine ? Broad-spectrum antibiotic therapy for with vancomycin, Zosyn Morbid obesity, with sacral decubitus ulcer, continue repositioning every 2 hours, bariaritc bed History of CVA, left upper extremity flexion contracture, left lower extremity weakness, chronic Severe back pain CT/CT lumbar spine wo con* [id number] IMPRESSION: 1. Severe L4 compression deformity. Moderate to severe L5 compression deformity. 2. Degenerative changes as described. Please see above for specific findings at each level. ? Dilaudid 1 mg IV push every 4 hours as needed for pain NSTEMI No chest pain complaints, ? Type I versus type II, serial EKGs, troponins can monitor monitoring Atrial fibrillation, continue Eliquis, coutinue to monitor Elevated lactic acid, likely secondary to respiratory tract infection and/or sacral disturbance ulcer, sepsis, Sepsis as above, History of CVA, with residual left upper left lower extremity weakness, Type 2 diabetes mellitus, low-dose sliding scale, Hematuria, likely secondary to Khoury catheter, and Eliquis, monitor for now Full code ? Eliquis for DVT prophylaxis Attestations 2 Medical Necessity Statement*: Patient requires hospitalization for sacral DTI, cellulitis, pna Diagnoses Acute encephalopathy G93.40 Sepsis A41.9 Elevated lactic acid level R79.89 Bedbound Z74.01 Decubital ulcer L89.90 THIAGO (obstructive sleep apnea) G47.33 Obesity E66.9 NSTEMI (non-ST elevated myocardial infarction) I21.4 Atrial fibrillation I48.91 CVA (cerebral vascular accident) I63.9 DM type 2 (diabetes mellitus, type 2) E11.9
[2023-06-27 18:01] LABS: Glucose Point of Care 242 mg/dL (70-110)
[2023-06-27] MEDS: pantoprazole 40 mg SDV IVP (18:35)
[2023-06-27] MEDS: sodium chloride 0.9% 1,000 ML 50 ML IV (18:51)
[2023-06-27 20:34] LABS: Glucose Point of Care 229 mg/dL (70-110)
[2023-06-27] MEDS: atorvastatin 40 mg Tablet 20 MG PO (21:37)
[2023-06-27] MEDS: amlodipine 5 mg Tablet 2.5 MG PO (21:37)
[2023-06-28] MEDS: HYDROcodone-acetaminophen 5-325 mg Tablet 1 TAB PO ×3 (02:05→14:25)
[2023-06-28 03:01] LABS: Vancomycin Trough 21.8 ug/mL (10-15)
[2023-06-28 03:17] VITALS: BP 159/92; PULSE 91; RESP 17; TEMP 36.4; O2SAT 92
[2023-06-28] MEDS: piperacillin-tazobactam 3.375 GM in sodium chloride 0.9% (plus) 50 ML IV ×2 (05:01→12:29)
[2023-06-28 05:56] LABS: Basophils # 0.1 10^3/uL (0.0-0.1); Basophils % 0.7 %; Eosinophils # 0.4 10^3/uL (0.0-0.8); Eosinophils % 4.7 %; Hematocrit 38.3 % (37-53); Lymphocytes # 2.7 10^3/uL (0.8-4.8); Lymphocytes % 30.1 %; Mean Corpuscular HGB Conc 32.9 g/dL (30-55); Mean Corpuscular Hemoglobin 30.3 pg (27-33); Mean Corpuscular Volume 92.1 fl (82-101); Mean Platelet Volume 9.5 fL (7.4-10.4); Monocytes # 0.9 10^3/uL (0.2-0.9); Monocytes % 9.5 %; Neutrophils # 4.96 10^3/uL (1.8-7.7); Neutrophils % 54.7 %; Nucleated Red Blood Cells % 0 %; Platelet Count 229 10^3/cmm (157-399); Red Blood Count 4.16 10^6/uL (3.85-5.65); Red Cell Distribution Width 12.1 % (12.1-15.1); White Blood Count 9.07 10^3/uL (3.29-11.43)
[2023-06-28 06:00] VITALS: PULSE 87
[2023-06-28 06:16] LABS: Alanine Aminotransferase 7 U/L (0-41); Albumin Level 3.2 g/dL (3.5-5.2); Alkaline Phosphatase 55 U/L (40-130); Anion Gap 14.3 (5-19); Aspartate Amino Transferase 8 U/L (0-40); Blood Urea Nitrogen 11 mg/dL (8-23); Calcium 8.7 mg/dL (8.5-10.5); Carbon Dioxide 24 mmol/L (22-29); Chloride 100 mmol/L (98-107); Globulin 3.2 g/dL (1.3-4.6); Glucose 238 mg/dL (65-115); Osmolality Calculated 285 mOsm/kg (285-295); Potassium 4.3 mmol/L (3.5-5.1); Sodium 134 mmol/L (136-145); Total Bilirubin 0.4 mg/dL (0.15-1.2); Total Protein 6.4 g/dL (6.6-8.7)
[2023-06-28 06:25] LABS: Glucose Point of Care 223 mg/dL (70-110)
[2023-06-28 06:27] LABS: Procalcitonin 0.03 ng/mL (0-0.5)
[2023-06-28 07:39] VITALS: BP 146/90; PULSE 81; RESP 20; TEMP 36.9; O2SAT 94
[2023-06-28] MEDS: isosorbide mononitrate 20 mg Tablet PO (09:08)
[2023-06-28] MEDS: apixaban 5 mg Tablet PO (09:08)
[2023-06-28] MEDS: atenolol 50 mg Tablet 75 MG PO (09:08)
[2023-06-28] MEDS: polyethylene glycol 3350 Pkt 17 gm PO (09:08)
[2023-06-28] MEDS: docusate sodium 100 mg Capsule PO (09:08)
[2023-06-28] MEDS: tamsulosin 0.4 mg Capsule PO (09:08)
[2023-06-28] MEDS: lisinopril 20 mg Tablet 40 MG PO (09:08)
[2023-06-28] MEDS: insulin lispro 100 unit/1 mL SUBCUT ×2 (09:09→12:30)
[2023-06-28] MEDS: vancomycin 1,250 MG/250 ML PIGGYBACK 166.67 MG IV (09:09)
[2023-06-28] MEDS: nystatin powder 15 gm Btl 1 APPLIC TOPICAL (09:10)
[2023-06-28 11:20] LABS: Glucose Point of Care 249 mg/dL (70-110)
[2023-06-28 11:25] VITALS: BP 129/69; PULSE 80; RESP 19; TEMP 36.7; O2SAT 94
--- NOTE | 2023-06-28 12:51 | P.DS_ITS ---
Discharge Providers Date of Admission: 06/24/23 13:18 Date of Discharge: June 28, 2023 Attending Provider at Admission: Hema Mayfield MD Attending Provider at Discharge: Hema Mayfield MD Primary Care Provider: Kris King Diagnoses at Discharge Discharge Diagnosis (1) Acute encephalopathy: Status: Acute (2) Sepsis: Status: Acute (3) Elevated lactic acid level: Status: Acute (4) Bedbound: Status: Acute (5) Decubital ulcer: Status: Acute (6) THIAGO (obstructive sleep apnea): Status: Acute (7) Obesity: Status: Acute (8) NSTEMI (non-ST elevated myocardial infarction): Status: Acute (9) Atrial fibrillation: Status: Acute (10) CVA (cerebral vascular accident): Status: Acute (11) DM type 2 (diabetes mellitus, type 2): Status: Acute Reason for Visit Reason for Visit: generalized weakness Hospital Course Hospital Course Richard Warren is a 77 year old male with a past medical history of atrial fibrillation on Eliquis therapy, history of hypertension, sleep apnea, morbid obesity, history of a stroke with residual left-sided deficits, left hand flexion contracture, left lower extremity weakness, history of UTI, history of ureteral stent placement on the left, who presents to [facility] due to generalized weakness, increased confusion, cough. Currently patient alert to person, not to place, not to time he can follow commands, he can answer basic yes or no questions, but frequently right requires redirection, is encephalopathic, at bedside helps with history taking. Patient is bedbound for the last year or so, he tells me he is walked a few months ago but his family denies this, family tells me has been more weak, fatigued, tired, increasingly confused, no nausea, no vomiting. He does report a cough, nonproductive, no sick contacts, recent travel, no known exposure to COVID-19 or the flu. Denies any dysuria, no hematuria. No abdominal pain. No chest pain. He does have a sacral decubitus ulcer, which nursing staff in the emergency room found, family is a bit stunned that he has this. No nausea, no diarrhea, no reported abdominal pain, he does report subjective fevers and chills, fatigue, malaise Patient was admitted to [facility] for acute encephalopathy, secondary to cecal decubitus ulcer, respiratory tract infection, sepsis, overall clinically improved back to baseline, Respiratory tract infection, possible pneumonia, requiring 2 L, received broad- spectrum antibiotic therapy, overall clinically improved, on room air on discharge, For his sacral decubitus ulcer, stage II, 4 x 4 cm, received inpatient monitoring, repositioning, wound care, managed with antibiotic therapy overall clinically improved. On discharge I am highly worried about worsening of his sacral decubitus ulcer, I advised family to monitor it aggressively, keep re positioning every 2-4 hours, keeping the area clean and dry, continuing antibiotic therapy, monitoring very closely, if it worsens, please bring back to the emergency room. Given his body habitus, his stroke, patient remains bedbound, so I am very highly worried that it is going to tunnel and get worse quickly. The only thing that I which strongly recommend above all else is for him to keep off of it that is repositioning him every 2-4 hours, trying to have him lie on his side, which ultimately will be difficult given his bedbound status his morbid obesity and his CVA. I had extensive discussion with family, I have highly recommended for him to at least go to custodial facility however they want to monitor him at home and patient declines. Nonetheless they have to keep it clean and dry, keep him reposition, and to monitor very closely if there is any evidence that it is tunneling or significant skin breakdown they should bring him back to the emergency room. Physical Exam Const: COMMON NORMALS: no acute distress and patient oriented x3 Resp: COMMON NORMALS: normal respiratory effort, No retractions, No use of accessory muscles and clear to auscultation bilaterally AUSCULTATION: clear to auscultation bilaterally Cardio: COMMON NORMALS: regular rate, regular rhythm, S1 normal heart sound present and S2 normal heart sound present RATE: regular rate RHYTHM: regular rhythm HEART SOUNDS: S1 normal heart sound present and S2 normal heart sound present GI: COMMON NORMALS: Normal to inspection, nondistended, normoactive bowel sounds present and non-tender Extremity: COMMON NORMALS: no pedal edema Neuro: COMMON NORMALS: patient oriented x3 Psych: COMMON NORMALS: mental status grossly normal Urinary Catheter Management: Khoury: Cath Placed During This Visit: yes Reason for Continuing Indwelling Catheter: Acute Urinary Retention or Obstruction Urinary Catheter Date of Insertion: 06/25/23 Urinary Catheter Time of Insertion: 11:00 Discharge Data Studies Completed and Pending Completed Studies During Hospitalization Category Date Time Status CT abdomen pelvis wo con [id number] Stat Cat Scan 06/24/23 11:[address] chest wo con [id number] Routine Cat Scan 06/24/23 16:[address] lumbar spine wo con* [id number] Routine Cat Scan 06/24/23 16:16 Completed XR chest 1V portable [id number] Stat Exams 06/24/23 10:18 Completed US renal BI* [id number] Routine Ultrasound 06/27/23 08:17 Completed Pending at discharge Category Date Time Status Blood Culture Stat Lab 06/24/23 18:03 Results Complete Blood Count w/Auto AM LABS Lab 06/29/23 04:00 Ordered Complete Blood Count w/Auto AM LABS Lab 06/30/23 04:00 Ordered Comprehensive Metabolic Panel AM LABS Lab 06/29/23 04:00 Ordered Comprehensive Metabolic Panel AM LABS Lab 06/30/23 04:00 Ordered Sputum Culture and Gram Stain Stat Lab 06/26/23 07:30 Results Radiology Impressions Chest CT 06/24/23 16:05 IMPRESSION: 1. Minimal bibasilar atelectasis. Otherwise no evidence of acute pulmonary process. 2. Extensive coronary artery calcifications. Lumbar Spine CT 06/24/23 16:16 IMPRESSION: 1. Severe L4 compression deformity. Moderate to severe L5 compression deformity. 2. Degenerative changes as described. Please see above for specific findings at each level. Laboratory Results WBC 9.07 10^3/uL (3.29-11.43) 06/28/23 05:46 RBC 4.16 10^6/uL (3.85-5.65) 06/28/23 05:46 Hgb 12.60 g/dL (11.27-16.99) 06/28/23 05:46 Hct 38.3 % (37-53) 06/28/23 05:46 MCV 92.1 fl (82-101) 06/28/23 05:46 MCH 30.3 pg (27-33) 06/28/23 05:46 MCHC 32.9 g/dL (30-55) 06/28/23 05:46 RDW 12.1 % (12.1-15.1) 06/28/23 05:46 Plt Count 229 10^3/cmm (157-399) 06/28/23 05:46 MPV 9.5 fL (7.4-10.4) 06/28/23 05:46 Neut % (Auto) 54.7 % 06/28/23 05:46 Lymph % (Auto) 30.1 % 06/28/23 05:46 Appling % (Auto) 9.5 % 06/28/23 05:46 Eos % (Auto) 4.7 % 06/28/23 05:46 Baso % (Auto) 0.7 % 06/28/23 05:46 Neut # (Auto) 4.96 10^3/uL (1.8-7.7) 06/28/23 05:46 Lymph # (Auto) 2.7 10^3/uL (0.8-4.8) 06/28/23 05:46 Appling # (Auto) 0.9 10^3/uL (0.2-0.9) 06/28/23 05:46 Eos # (Auto) 0.4 10^3/uL (0.0-0.8) 06/28/23 05:46 Baso # (Auto) 0.1 10^3/uL (0.0-0.1) 06/28/23 05:46 Nucleated RBC % (auto) 0 % 06/28/23 05:46 Nucleated RBCs # 0.0 /100WBC 06/28/23 05:46 ESR 32 mm/hr (0-10) H 06/24/23 10:26 Specimen Type Arterial 06/24/23 16:34 Sample Site Brachial, right 06/24/23 16:34 ABG pH 7.43 (7.35-7.45) 06/24/23 16:34 ABG pCO2 37.8 mmHg (35-45) 06/24/23 16:34 ABG pO2 80.6 mmHg (80.0-100.0) 06/24/23 16:34 ABG HCO3 25.2 mmol/L (22-26) 06/24/23 16:34 ABG Base Excess 1.1 mmol/L (-2.0-2.0) 06/24/23 16:34 Liam Test N/a 06/24/23 16:34 Hematocrit 44.2 % (42-52) 06/24/23 16:34 O2 Delivery Device Room air 06/24/23 16:34 Wire Inspector ID Bean 06/24/23 16:34 Sodium 134 mmol/L (136-145) L 06/28/23 05:46 Potassium 4.3 mmol/L (3.5-5.1) 06/28/23 05:46 Chloride 100 mmol/L (98-107) 06/28/23 05:46 Carbon Dioxide 24 mmol/L (22-29) 06/28/23 05:46 Anion Gap 14.3 (5-19) 06/28/23 05:46 BUN 11 mg/dL (8-23) 06/28/23 05:46 Creatinine 0.6 mg/dL (0.7-1.2) L 06/28/23 05:46 GFR Calculation Not Reportable 06/28/23 05:46 Glucose 238 mg/dL (65-115) H 06/28/23 05:46 POC Glucose 249 mg/dL (70-110) H 06/28/23 11:00 Estimat Average Glucose 143 06/24/23 10:26 Hemoglobin A1c 6.6 % (4.0-6.0) H 06/24/23 10:26 Calculated Osmolality 285 mOsm/kg (285-295) 06/28/23 05:46 Lactic Acid 3.2 mmol/L (0.5-2.2) H 06/24/23 17:57 Lactic Acid (Sepsis) 3.2 mmol/L (0.5-2.2) H 06/24/23 20:49 Lactate 1.0 mmol/L (0.5-2.2) 06/28/23 05:46 Calcium 8.7 mg/dL (8.5-10.5) 06/28/23 05:46 Phosphorus 2.6 mg/dL (2.5-4.5) 06/27/23 04:38 Magnesium 1.9 mg/dL (1.7-2.3) 06/27/23 04:38 Total Bilirubin 0.4 mg/dL (0.15-1.2) 06/28/23 05:46 AST 8 U/L (0-40) 06/28/23 05:46 ALT 7 U/L (0-41) 06/28/23 05:46 Alkaline Phosphatase 55 U/L (40-130) 06/28/23 05:46 Troponin T Baseline 37 ng/L (0-15) H 06/24/23 10:26 Troponin T 120 Minute 33.69 ng/L (0-15) H 06/24/23 13:10 Delta Troponin T -3.31 ABS# (0-10) L 06/24/23 13:10 Troponin T Hi Sens 6Hr 34.58 ng/L (0-15) H 06/24/23 17:57 Troponin T Hi Sens 6Hr Delta -2.42 ng/L (0-12) L 06/24/23 17:57 C-Reactive Protein 41.0 mg/L (0.0-4.9) H 06/28/23 05:46 NT-Pro-B Natriuret Pep 598 pg/mL (0-450) H 06/24/23 17:57 Total Protein 6.4 g/dL (6.6-8.7) L 06/28/23 05:46 Albumin 3.2 g/dL (3.5-5.2) L 06/28/23 05:46 Globulin 3.2 g/dL (1.3-4.6) 06/28/23 05:46 Triglycerides 66 mg/dL (0-150) 06/24/23 17:57 Cholesterol 106 mg/dL (0-200) 06/24/23 17:57 LDL Cholesterol, Calc 52 mg/dL (50-129) 06/24/23 17:57 HDL Cholesterol 41 mg/dL (60-100) L 06/24/23 17:57 LDL/HDL Ratio 1.27 RATIO (0.00-3.22) 06/24/23 17:57 Cholesterol/HDL Ratio 2.59 mg/dL (1.0-5.00) 06/24/23 17:57 Lipase 28 U/L (13-60) 06/24/23 10:26 Procalcitonin 0.03 ng/mL (0-0.5) 06/28/23 05:46 TSH 2.14 uIU/mL (0.27-4.20) 06/24/23 17:57 Urine Color Red (Yellow) A 06/26/23 15:30 Urine Appearance Bloody (CLEAR) A 06/26/23 15:30 Urine pH 5 (5-7) 06/26/23 15:30 Ur Specific Mcfarlan 1.010 (1.005-1.030) 06/26/23 15:30 Urine Protein 1+ (Negative) H 06/26/23 15:30 Urine Glucose (UA) 1+ (Normal) H 06/26/23 15:30 Urine Ketones Negative (Negative) 06/26/23 15:30 Urine Blood 3+ (Negative) H 06/26/23 15:30 Urine Nitrate Negative (Negative) 06/26/23 15:30 Urine Bilirubin Neg (Negative) 06/26/23 15:30 Urine Urobilinogen 4 mg/dL (Negative) H 06/26/23 15:30 Ur Leukocyte Esterase 1+ (Negative) H 06/26/23 15:30 Urine RBC Too numerous to cnt /hpf (0-2) H 06/26/23 15:30 Urine WBC 10-15 /hpf (0-5) H 06/26/23 15:30 Ur Squamous Epith Cells None /hpf (0-5) 06/26/23 15:30 Amorphous Sediment Not Reportable 06/26/23 15:30 Urine Bacteria 1+ /hpf (NONE) H 06/26/23 15:30 Urine Mucus Trace /hpf 06/24/23 10:45 Nasal Influ A H1 2009 PCR Not detected (NOT DETECT) 06/24/23 12:41 Vancomycin Trough 21.8 ug/mL (10-15) H 06/28/23 02:36 Adenovirus (PCR) Not detected (NOT DETECT) 06/24/23 12:41 C. pneumoniae DNA (PCR) Not detected (NOT DETECT) 06/24/23 12:41 Coronavirus 229E (PCR) Not detected (NOT DETECT) 06/24/23 12:41 Human Metapneumovir PCR Not detected (NOT DETECT) 06/24/23 12:41 Influenza A (H1) PCR Not detected (NOT DETECT) 06/24/23 12:41 Influenza A (H3) PCR Not detected (NOT DETECT) 06/24/23 12:41 Influenza Type A Ag negative (Negative) 06/24/23 12:41 Influenza Type A (PCR) Not detected (NOT DETECT) 06/24/23 12:41 Influenza Type B Ag negative (Negative) 06/24/23 12:41 Influenza Type B (PCR) Not detected (NOT DETECT) 06/24/23 12:41 M. pneumoniae (PCR) Not detected (NOT DETECT) 06/24/23 12:41 Parainfluenza 1 (PCR) Not detected (NOT DETECT) 06/24/23 12:41 Parainfluenza 2 (PCR) Not detected (NOT DETECT) 06/24/23 12:41 Parainfluenza 3 (PCR) Not detected (NOT DETECT) 06/24/23 12:41 Parainfluenza 4 (PCR) Not detected (NOT DETECT) 06/24/23 12:41 RSV Type A (PCR) Not detected (NOT DETECT) 06/24/23 12:41 RSV Type B (PCR) Not detected (NOT DETECT) 06/24/23 12:41 Entero/Rhino (PCR) Not detected (NOT DETECT) 06/24/23 12:41 SARS-CoV-2 (PCR) Not detected (NOT DETECT) 06/24/23 12:41 Vitals Last Vital Signs Temp 98.0 F 06/28/23 11:25 Pulse 80 06/28/23 11:25 Resp 19 H 06/28/23 11:25 BP 129/69 06/28/23 11:25 Pulse Ox 94 06/28/23 11:25 O2 Del Method Room Air 06/28/23 11:25 O2 Flow Rate 2 06/24/23 13:37 Discharge Plan Discharge Patient Disposition: Home Condition: Stable Prescriptions: New polyethylene glycol 3350 17 gram Powder In Packet 17 g PO DAILY 30 Days Qty: 30 0RF doxycycline hyclate 100 mg tablet 100 mg PO BID 5 Days Qty: 10 0RF hydrocodone-acetaminophen 5-325 mg tablet 1 tab PO Q6H PRN (Reason: pain) 7 Days Qty: 28 0RF Continued methenamine hippurate 1 gram tablet 1 g PO BID Qty: 60 12RF Rx Instructions: 1 pill twice a day with 1 g vitamin C each dose tamsulosin 0.4 mg capsule 0.4 mg PO BIDWMEAL Qty: 60 12RF Vitamin C 1,000 mg Tablet 500 mg PO BID nystatin 100,000 unit/gram cream 1 applic TOPICAL BID hydroxyzine HCl 25 mg tablet 25 mg PO TID PRN (Reason: INSOMSNIA OR ITCHING) clotrimazole 1 % cream See Rx Instructions .ROUTE .COMPLEX Rx Instructions: APPLY TO AFFECTED AREA 2 TIMES DAILY. APPLY TO AREAS OF PENILE IRRITATION FOR 7 DAYS AND THEN ALTERNATE TO MUPIROCIN UNTIL PROBLEM IS IMPROVED isosorbide mononitrate 20 mg Tablet 20 mg PO DAILY enalapril maleate 20 mg Tablet 20 mg PO BID amlodipine 5 mg Tablet 2.5 mg PO BEDTIME baclofen 10 mg Tablet 10 mg PO BID PRN (Reason: muscle spasms) pantoprazole [Protonix] 40 mg Tablet,Delayed Release (Dr/Ec) 40 mg PO DAILY metformin 1,000 mg Tablet 1,000 mg PO BID atenolol 50 mg Tablet 75 mg PO DAILY glipizide 5 mg Tablet 5 mg PO BID rosuvastatin 5 mg Tablet 5 mg PO BEDTIME Eliquis 5 mg Tablet 5 mg PO BID Changed Lantus Solostar U-100 Insulin 100 unit/mL (3 mL) Insulin Pen 10 unit SUBCUT BEDTIME 30 Days Qty: 15 0RF Discontinued hydrocodone-acetaminophen 5-325 mg Tablet 1 - 2 tab PO DIRECTED PRN (Reason: Pain) Discharge Orders: Discharge Order (Routine); Ordered 06/28/23 Ordered By: Hema Mayfield Referrals: Kris King [Primary Care Provider] - 06/30/23 11:00 am Discharge Diet: Cardiac Discharge Activity: Resume usual activity Patient Instructions: Doxycycline (By mouth), Hydrocodone/Acetaminophen (By mouth), Polyethylene Glycol 3350 (By mouth), Opioid Safety Activity Restrictions/Additional Instructions: - Continue to offload sacral decubitus ulcer chronic ? Continue to monitor, ? Turning every 2-4 hours, ? Keep area clean and dry,, ? Avoid any harsh chemicals, any alcohol over the area, ? Take antibiotics as prescribed, ? Follow sacral decubitus ulcer very close, ? Follow-up with Dr. Murguia in 1 week ? Protein shakes 2 times a day Discharge Attestations Time Spent in Discharge Care*: greater than 30 min Quality Metrics Clinical Quality Measures [ No reported AMI, CVA or VTE this stay] Coding Level of Care Code 00539 Total time (in minutes) for Discharge: 45 Diagnoses Acute encephalopathy G93.40 Sepsis A41.9 Elevated lactic acid level R79.89 Bedbound Z74.01 Decubital ulcer L89.90 THIAGO (obstructive sleep apnea) G47.33 Obesity E66.9 NSTEMI (non-ST elevated myocardial infarction) I21.4 Atrial fibrillation I48.91 CVA (cerebral vascular accident) I63.9 DM type 2 (diabetes mellitus, type 2) E11.9
[2023-06-28 15:43] VITALS: BP 129/69; PULSE 80; RESP 19; TEMP 36.7; O2SAT 94
== END 2023-06-28 15:35 | disposition home or self-care (01) | DRG 871 ==
LOC: ER 11:54 → MEDSURG 13:59
PROVIDERS: Internal Medicine; Admitting Provider Family Medicine; Emergency Provider Family Medicine; PCP Family Medicine; Visit Provider Family Medicine
DX: A41.9 Sepsis, unspecified organism (principal); G93.41 Metabolic encephalopathy; J18.9 Pneumonia, unspecified organism; I21.4 Non-ST elevation (NSTEMI) myocardial infarction; Z68.42 Body mass index [BMI] 45.0-49.9, adult; L03.312 Cellulitis of back [any part except buttock and flank]; I48.0 Paroxysmal atrial fibrillation; Z79.01 Long term (current) use of anticoagulants; I25.2 Old myocardial infarction; Z74.01 Bed confinement status; E11.9 Type 2 diabetes mellitus without complications; Z79.4 Long term (current) use of insulin; K76.0 Fatty (change of) liver, not elsewhere classified; G47.33 Obstructive sleep apnea (adult) (pediatric); I10 Essential (primary) hypertension; E66.01 Morbid (severe) obesity due to excess calories; L89.152 Pressure ulcer of sacral region, stage 2; I69.344 Monoplegia of lower limb following cerebral infarction affecting left non-dominant side; I69.398 Other sequelae of cerebral infarction; M24.542 Contracture, left hand
CPT/HCPCS: 36415; 36416; 36600; 51702; 71045; 71250; 72131; 74176; 76770; 80053; 80061; 80202; 81001; 82803; 82962; 83036; 83605; 83690; 83735; 83880; 84100; 84145; 84443; 84484; 85025; 85651; 86140; 87040; 87070; 87086; 87205; 87486; 87581; 87633; 87635; 87804; 93005; 94664; 96365; 96372; 99285; C9113; J1170; J1815; J1956; J2270; J2543; J3370; J7030